=== PATIENT | female | born 1930 | race Caucasian/White ===

== ENCOUNTER 2018-12-24 19:08 | Inpatient (IN) | payer MEDICARE ==
[~2018-12-24] VITALS: Ht 144.8 cm; Wt 53.3 kg
[~2018-12-24 19:08] MED LIST: ACET325T49 PO; ACHD5005 PO; AMLO10TA7 PO; ATOR20TA66 PO; BETH10TA PO; CETI10CA PO; CETI10TA20 PO; CHOL400C9 PO; CHOL400T PO; DOCU100C37 PO; LACT10SO33 PO; LACT1CAP39 PO; LACT1CAP40 PO; METR500T PO; OMEP40CA36 PO; ONDA8TAB9 PO; PANT40TA3 PO; POTA20PA34 PO; POTA20TA8 PO; PSYL660P17 PO; PSYL684P2 PO; SENN-141 PO; SIMV40TA4 PO; SOTA80TA PO; Sotalol Hcl PO; TRAM50TA2 PO; WARF-48 PO; WARF3TAB PO; WARF3TAB56 PO
[2018-12-24] MEDS ORDERED: ACETAMINOPHEN 325 MG TABLET PO PRN (19:15)
[2018-12-24] MEDS ORDERED: ANTACID SUSP 30 ML UDC (MYLANTA) PO PRN (19:15)
[2018-12-24] MEDS ORDERED: ONDANSETRON 4 MG/2 ML (SDV) Z0FRAN IV PRN (19:15)
[2018-12-24] MEDS ORDERED: MILK OF MAGNESIA 400 MG/5 ML 30 ML UDC PO PRN (19:15)
[2018-12-24 21:30] VITALS: BP 122/69
--- NOTE | 2018-12-24 21:45 | NUR ---
2015 this rn received report from Eugene Peterson RN at [facility] 2130 pt arrived via [facility]-update from Jase from EMS [facility] admitted to room 406-1, with an admitting diagnosis of CHF new onset, on 12/24/18 from [facility] via [facility], accompanied by EMS staff & pt daughters.[facility] introduced to surroundings, call light, bed controls, phone, TV, temperature control, lights, meal times, smoking policy, visitor policy, side rail policy, bathrooms and showers. Patient Rights given to patient in the handbook. [facility] verbalizes understanding that [facility] is not responsible for the loss or damage to any personal effects or valuables that are kept in the patients possession during their hospitalization, daughter yi took home patients gold tone earrings & call button from the [facility] facility. The patient's plan of care was discussed with the patient & her daughters/dpoas, they all agree to the plan & deny any questions or concerns. [facility] verbalizes understanding of Interdisciplinary Patient Education.
--- OUTSIDE RECORDS SUMMARY | 2018-12-24 21:55 | XMS REPORT | Continuity of Care Document ---
Author Author [facility] Organization [facility] Address Unknown Phone Unavailable Allergies Active Description Code Type Severity Reaction Onset Reported/Identified Relationship to Patient Clinical Status Yes NO KNOWN DRUG ALLERGIES NO KNOWN DRUG ALLERG UNKNOWN Yes NO KNOWN DRUG ALLERGIES UNKNOWN NO KNOWN DRUG ALLERG Yes No Known Drug Allergies [id number] Drug Allergy Unknown N/A 06/09/2016 Medications Medication Packaging Start Date Stop Date Route Dosage Sig POTASSIUM CHLORIDE 10% LIQ 20 MEQ/15CC MEQ 01/08/2017 01/08/2017 ONCE&1150 POTASSIUM CL 40MEQ VIAL INJ 40 MEQ/20CC (KCL VIAL) MEQ 01/08/2017 01/08/2017 ONCE&1234 NORMAL SALINE 0.9 % (NS 100cc) (plain bag) ml 01/08/2017 01/08/2017 ONCE&1234 NORMAL SALINE 500CC IV BAG INJ 0.9 % (NS 500CC IV BAG) ml 01/08/2017 01/23/2017 CONTINUOUSEVERY 0 Hour BENZONATATE CAP 100 MG (TESSALON) MG 01/08/2017 01/15/2017 TID&0800,1400,2000 POTASSIUM CHLORIDE TAB 20 MEQ (K-DUR) Dose(s) 01/08/2017 01/15/2017 TID&0800,1400,2000 GUAIFENESIN - DM LIQ 0 (ROBITUSSIN DM) ml 01/08/2017 01/15/2017 PRN Q4H CEFTRIAXONE INJ 1 GM (ROCEPHIN) GM 01/08/2017 01/14/2017 Daily&1500 CEFTRIAXONE PREMIX IV BAG IV 1 GM/50CC (ROCEPHIN PREMIX IV BAG) GM 01/08/2017 01/14/2017 Daily&1500 ACETAMINOPHEN ORAL TABLET 325mg(Tylenol) MG 01/08/2017 01/18/2017 PRN EVERY 4 Hour WARFARIN TAB 1 MG (COUMADIN) MG 01/14/2017 QPM&1800 SOTALOL TAB 80 MG (BETAPACE) Dose(s) 01/08/2017 01/15/2017 BID&0800,2000 SIMVASTATIN TAB 10 MG (ZOCOR) Dose(s) 01/08/2017 01/14/2017 QHS&2100 POTASSIUM CL 40MEQ VIAL INJ 40 MEQ/20CC (KCL VIAL) MEQ 01/09/2017 01/09/2017 ONCE&0702 NORMAL SALINE 0.9 % (NS 100cc) (plain bag) ml 01/09/2017 01/24/2017 CONTINUOUSEVERY 0 Hour NORMAL SALINE 0.9 % (NS 100cc) (plain bag) ml 01/09/2017 01/09/2017 ONCE&0704 AMLODIPINE TAB 10 MG (NORVASC) Dose(s) 01/09/2017 01/15/2017 Daily&0900 VITAMIN D-3 TAB 1000 UNITS (VITAMIN D-3) Dose( s) 01/09/2017 01/15/2017 Daily&0900 MultiVits (Thera M Plus) (gyaavnuk-zeup-ufxpytz) oral tablet TAB 01/09/2017 02/07/2017 Daily&0900 NORMAL SALINE W/KCL 40MEQ IV 40 MEQ (SALINE IV BAG [id number]) MLS 01/09/2017 01/16/2017 CONTINUOUSEVERY 0 Hour LACTOBACILLUS BULGARIS TAB 0 (LACTINEX BULGARIS) tab 01/09/2017 01/19/2017 QID&0800,1200,1700,2200 NORMAL SALINE 250CC IV BAG INJ 0.9 % (NS 250CC IV BAG) ml 01/10/2017 01/10/2017 ONCE&0714 LOPERAMIDE CAP 2 MG (IMMODIUM) MG 01/10/2017 01/10/2017 ONCE&1200 LOPERAMIDE CAP 2 MG (IMMODIUM) MG 01/10/2017 01/17/2017 PRN QID POTASSIUM CHLORIDE TAB 20 MEQ (K-DUR) MEQ 01/11/2017 01/17/2017 TID&0800,1400,2000 SALINE NASAL MIST LIQ 0 (OCEAN SPRAY) SPRAYS 01/11/2017 01/21/2017 PRN Q2H ACETAMINOPHEN ORAL TABLET 325mg(Tylenol) MG 01/17/2017 01/17/2017 PRN ONCE D5 1/2 NS 1000CC IV BAG INJ 0 ml 01/24/2017 CONTINUOUSEVERY 0 Hour POTASSIUM CHLORIDE TAB 20 MEQ (K-DUR) MEQ 01/17/2017 01/24/2017 TID&0800,1400,2000 SOTALOL TAB 80 MG (BETAPACE) Dose(s) 01/17/2017 01/24/2017 BID&0800,2000 LOPERAMIDE CAP 2 MG (IMMODIUM) Dose(s) 01/17/2017 01/24/2017 PRN TID SIMVASTATIN TAB 10 MG (ZOCOR) Dose(s) 01/17/2017 01/23/2017 QHS&2100 CEFTRIAXONE INJ 1 GM (ROCEPHIN) GM 01/17/2017 01/23/2017 Daily&2100 ACETAMINOPHEN ORAL TABLET 325mg(Tylenol) MG 01/17/2017 01/24/2017 PRN QID AMLODIPINE TAB 10 MG (NORVASC) Dose(s) 01/18/2017 01/24/2017 Daily&0900 NORMAL SALINE 50CC IV BAG INJ 0 (NS 50CC MINI-BAG) ml 01/18/2017 01/27/2017 Daily&0900 [address]AM[address] PKT 4 GM (QUESTRAN JOAO) GM 01/19/2017 01/25/2017 BID&0800,2000 DICYCLOMINE TAB 20 MG (BENTYL) MG 01/19/2017 01/26/2017 Q6H&0600,1200,1800,2359 IPRATROPIUM/ALBUTEROL INH SOLN (DUO-NEB INH SOLN) MLS 12/24/2018 12/24/2018 ONCE&1715 FUROSEMIDE VIAL INJ 20 MG (LASIX VIAL) MG 12/24/2018 12/24/2018 ONCE&1905 Problems Date Dx Coded Attending Type Code Diagnosis Diagnosed By 05/12/2015 WALKER SMITH MD Ot 331.9 05/12/2015 WALKER SMITH MD Ot 782.0 05/18/2015 WALKER SMITH MD Ot 331.9 05/18/2015 WALKER SMITH MD Ot 782.0 06/09/2016 WALKER SMITH MD 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 06/09/2016 WALKER SMITH MD Ot 782.0 SKIN SENSATION DISTURB 06/13/2016 GIGI JARRETT MD Ot D64.9 ANEMIA, UNSPECIFIED 06/13/2016 GIGI JARRETT MD Ot E78.5 HYPERLIPIDEMIA, UNSPECIFIED 06/13/2016 GIGI JARRETT MD Ot E87.1 HYPO-OSMOLALITY AND HYPONATREMIA 06/13/2016 GIGI JARRETT MD Ot I10 ESSENTIAL (PRIMARY) HYPERTENSION 06/13/2016 GIGI JARRETT MD Ot 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 06/13/2016 GIGI JARRETT MD Ot I48.91 UNSPECIFIED ATRIAL FIBRILLATION 06/13/2016 GIGI JARRETT MD Ot K21.9 GASTRO-ESOPHAGEAL REFLUX DISEASE WITHOUT 06/13/2016 GIGI JARRETT MD Ot K59.00 CONSTIPATION, UNSPECIFIED 06/13/2016 GIGI JARRETT MD Ot M81.0 AGE-RELATED OSTEOPOROSIS W/O CURRENT PAT 06/13/2016 GIGI JARRETT MD Ot R33.9 RETENTION OF URINE, UNSPECIFIED 06/13/2016 GIGI JARRETT MD Ot S72.012A UNSP INTRACAPSULAR FRACTURE OF LEFT FEMU 06/13/2016 GIGI JARRETT MD Ot W18.09XA STRIKING AGAINST OTH OBJECT W SUBSEQUENT 06/13/2016 GIGI JARRETT MD Ot Y92.017 GARDEN OR YARD IN SINGLE-FAMILY (PRIVATE 06/13/2016 GIGI JARRETT MD Ot Y99.8 OTHER EXTERNAL CAUSE STATUS 06/13/2016 GIGI JARRETT MD Ot Z79.01 GRILL ASSOCIATE (CURRENT) USE OF ANTICOAGULANT 06/20/2016 MICHELLE LI MD Ot B96.20 UNSP ESCHERICHIA COLI THE CAUSE OF DI 06/20/2016 MICHELLE LI MD Ot B96.4 PROTEUS (MIRABILIS) (MORGANII) CAUSING D 06/20/2016 MICHELLE LI MD Ot D62 ACUTE POSTHEMORRHAGIC ANEMIA 06/20/2016 MICHELLE LI MD Ot E22.2 SYNDROME OF INAPPROPRIATE SECRETION OF A 06/20/2016 MICHELLE LI MD Ot E87.6 HYPOKALEMIA 06/20/2016 MICHELLE LI MD Ot I10 ESSENTIAL (PRIMARY) HYPERTENSION 06/20/2016 MICHELLE LI MD Ot 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 06/20/2016 MICHELLE LI MD Ot I48.0 PAROXYSMAL ATRIAL FIBRILLATION 06/20/2016 MICHELLE LI MD Ot K59.09 OTHER CONSTIPATION 06/20/2016 MICHELLE LI MD Ot M81.0 AGE-RELATED OSTEOPOROSIS W/O CURRENT PAT 06/20/2016 MICHELLE LI MD Ot N31.9 NEUROMUSCULAR DYSFUNCTION OF BLADDER, UN 06/20/2016 MICHELLE LI MD Ot N39.0 URINARY TRACT INFECTION, SITE NOT SPECIF 06/20/2016 MICHELLE LI MD Ot R06.89 OTHER ABNORMALITIES OF BREATHING 06/20/2016 MICHELLE LI MD Ot R33.9 RETENTION OF URINE, UNSPECIFIED 06/20/2016 MICHELLE LI MD Ot S72.012D UNSP INTRACAP FX LEFT FEMUR, SUBS FOR CL 06/20/2016 MICHELLE LI MD Ot W18.09XD STRIKING AGAINST OTH OBJECT W SUBSEQUENT 06/20/2016 MICHELLE LI MD Ot Y92.017 GARDEN OR YARD IN SINGLE-FAMILY (PRIVATE 06/20/2016 MICHELLE LI MD Ot Y99.8 OTHER EXTERNAL CAUSE STATUS 06/20/2016 MICHELLE LI MD Ot Z79.01 GRILL ASSOCIATE (CURRENT) USE OF ANTICOAGULANT 06/20/2016 MICHELLE LI MD Ot Z99.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 OXYGEN 06/20/2016 MICHELLE LI MD Ot B96.20 UNSP ESCHERICHIA COLI THE CAUSE OF DI 06/20/2016 MICHELLE LI MD Ot B96.4 PROTEUS (MIRABILIS) (MORGANII) CAUSING D 06/20/2016 MICHELLE LI MD Ot D62 ACUTE POSTHEMORRHAGIC ANEMIA 06/20/2016 MICHELLE LI MD Ot E22.2 SYNDROME OF INAPPROPRIATE SECRETION OF A 06/20/2016 MICHELLE LI MD Ot E87.6 HYPOKALEMIA 06/20/2016 MICHELLE LI MD Ot I10 ESSENTIAL (PRIMARY) HYPERTENSION 06/20/2016 MICHELLE LI MD Ot 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 06/20/2016 MICHELLE LI MD Ot I48.0 PAROXYSMAL ATRIAL FIBRILLATION 06/20/2016 MICHELLE LI MD Ot K59.09 OTHER CONSTIPATION 06/20/2016 MICHELLE LI MD Ot M81.0 AGE-RELATED OSTEOPOROSIS W/O CURRENT PAT 06/20/2016 MICHELLE LI MD, Ot N31.9 NEUROMUSCULAR DYSFUNCTION OF BLADDER, UN 06/20/2016 MICHELLE LI MD, Ot N39.0 URINARY TRACT INFECTION, SITE NOT SPECIF 06/20/2016 MICHELLE LI MD Ot R06.89 OTHER ABNORMALITIES OF BREATHING 06/20/2016 MICHELLE LI MD Ot R33.9 RETENTION OF URINE, UNSPECIFIED 06/20/2016 MICHELLE LI MD Ot S72.012D UNSP INTRACAP FX LEFT FEMUR, SUBS FOR CL 06/20/2016 MICHELLE LI MD, Ot W18.09XD STRIKING AGAINST OTH OBJECT W SUBSEQUENT 06/20/2016 MICHELLE LI MD, Ot Y92.017 GARDEN OR YARD IN SINGLE-FAMILY (PRIVATE 06/20/2016 MICHELLE LI MD, Ot Y99.8 OTHER EXTERNAL CAUSE STATUS 06/20/2016 MICHELLE LI MD, Ot Z79.01 SENIOR CARE (CURRENT) USE OF ANTICOAGULANT 06/20/2016 MICHELLE LI MD, Ot Z99.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 OXYGEN 06/20/2016 MICHELLE LI MD Ot B96.20 UNSP ESCHERICHIA COLI THE CAUSE OF DI 06/20/2016 MICHELLE LI MD Ot B96.4 PROTEUS (MIRABILIS) (MORGANII) CAUSING D 06/20/2016 MICHELLE LI MD Ot D62 ACUTE POSTHEMORRHAGIC ANEMIA 06/20/2016 MICHELLE LI MD Ot E22.2 SYNDROME OF INAPPROPRIATE SECRETION OF A 06/20/2016 MICHELLE LI MD Ot E87.6 HYPOKALEMIA 06/20/2016 MICHELLE LI MD Ot I10 ESSENTIAL (PRIMARY) HYPERTENSION 06/20/2016 MICHELLE LI MD Ot 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 06/20/2016 MICHELLE LI MD Ot I48.0 PAROXYSMAL ATRIAL FIBRILLATION 06/20/2016 MICHELLE LI MD Ot K59.09 OTHER CONSTIPATION 06/20/2016 MICHELLE LI MD Ot M81.0 AGE-RELATED OSTEOPOROSIS W/O CURRENT PAT 06/20/2016 MICHELLE LI MD Ot N31.9 NEUROMUSCULAR DYSFUNCTION OF BLADDER, UN 06/20/2016 MICHELLE LI MD Ot N39.0 URINARY TRACT INFECTION, SITE NOT SPECIF 06/20/2016 LI MD, MICHELLE E Ot R06.89 OTHER ABNORMALITIES OF BREATHING 06/20/2016 MICHELLE LI MD Ot R33.9 RETENTION OF URINE, UNSPECIFIED 06/20/2016 MICHELLE LI MD Ot S72.012D UNSP INTRACAP FX LEFT FEMUR, SUBS FOR CL 06/20/2016 MICHELLE LI MD, Ot W18.09XD STRIKING AGAINST OTH OBJECT W SUBSEQUENT 06/20/2016 MICHELLE LI MD Ot Y92.017 GARDEN OR YARD IN SINGLE-FAMILY (PRIVATE 06/20/2016 MICHELLE LI MD Ot Y99.8 OTHER EXTERNAL CAUSE STATUS 06/20/2016 MICHELLE LI MD Ot Z79.01 GRILL ASSOCIATE (CURRENT) USE OF ANTICOAGULANT 06/20/2016 MICHELLE LI MD, Ot Z99.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 OXYGEN 06/20/2016 MICHELLE LI MD Ot B96.20 UNSP ESCHERICHIA COLI THE CAUSE OF DI 06/20/2016 MICHELLE LI MD Ot B96.4 PROTEUS (MIRABILIS) (MORGANII) CAUSING D 06/20/2016 MICHELLE LI MD Ot D62 ACUTE POSTHEMORRHAGIC ANEMIA 06/20/2016 MICHELLE LI MD Ot E22.2 SYNDROME OF INAPPROPRIATE SECRETION OF A 06/20/2016 MICHELLE LI MD Ot E87.6 HYPOKALEMIA 06/20/2016 MICHELLE LI MD Ot I10 ESSENTIAL (PRIMARY) HYPERTENSION 06/20/2016 MICHELLE LI MD Ot 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 06/20/2016 MICHELLE LI MD Ot I48.0 PAROXYSMAL ATRIAL FIBRILLATION 06/20/2016 MICHELLE LI MD Ot K59.09 OTHER CONSTIPATION 06/20/2016 MICHELLE LI MD Ot M81.0 AGE-RELATED OSTEOPOROSIS W/O CURRENT PAT 06/20/2016 MICHELLE LI MD Ot N31.9 NEUROMUSCULAR DYSFUNCTION OF BLADDER, UN 06/20/2016 MICHELLE LI MD Ot N39.0 URINARY TRACT INFECTION, SITE NOT SPECIF 06/20/2016 MICHELLE LI MD Ot R06.89 OTHER ABNORMALITIES OF BREATHING 06/20/2016 MICHELLE LI MD Ot R33.9 RETENTION OF URINE, UNSPECIFIED 06/20/2016 MICHELLE LI MD Ot S72.012D UNSP INTRACAP FX LEFT FEMUR, SUBS FOR CL 06/20/2016 MICHELLE LI MD, Ot W18.09XD STRIKING AGAINST OTH OBJECT W SUBSEQUENT 06/20/2016 MICHELLE LI MD Ot Y92.017 GARDEN OR YARD IN SINGLE-FAMILY (PRIVATE 06/20/2016 MICHELLE LI MD, Ot Y99.8 OTHER EXTERNAL CAUSE STATUS 06/20/2016 MICHELLE LI MD, Ot Z79.01 GRILL ASSOCIATE (CURRENT) USE OF ANTICOAGULANT 06/20/2016 MICHELLE LI MD Ot Z99.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 OXYGEN 06/20/2016 MICHELLE LI MD, Ot B96.20 UNSP ESCHERICHIA COLI THE CAUSE OF DI 06/20/2016 MICHELLE LI MD, Ot B96.4 PROTEUS (MIRABILIS) (MORGANII) CAUSING D 06/20/2016 MICHELLE LI MD Ot D62 ACUTE POSTHEMORRHAGIC ANEMIA 06/20/2016 MICHELLE LI MD Ot E22.2 SYNDROME OF INAPPROPRIATE SECRETION OF A 06/20/2016 MICHELLE LI MD Ot E87.6 HYPOKALEMIA 06/20/2016 MICHELLE LI MD Ot I10 ESSENTIAL (PRIMARY) HYPERTENSION 06/20/2016 MICHELLE LI MD Ot 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 06/20/2016 MICHELLE LI MD, Ot I48.0 PAROXYSMAL ATRIAL FIBRILLATION 06/20/2016 MICHELLE LI MD Ot K59.09 OTHER CONSTIPATION 06/20/2016 MICHELLE LI MD Ot M81.0 AGE-RELATED OSTEOPOROSIS W/O CURRENT PAT 06/20/2016 MICHELLE LI MD Ot N31.9 NEUROMUSCULAR DYSFUNCTION OF BLADDER, UN 06/20/2016 MICHELLE LI MD, Ot N39.0 URINARY TRACT INFECTION, SITE NOT SPECIF 06/20/2016 MICHELLE LI MD Ot R06.89 OTHER ABNORMALITIES OF BREATHING 06/20/2016 MICHELLE LI MD Ot R33.9 RETENTION OF URINE, UNSPECIFIED 06/20/2016 MICHELLE LI MD, Ot S72.012D UNSP INTRACAP FX LEFT FEMUR, SUBS FOR CL 06/20/2016 MICHELLE LI MD Ot W18.09XD STRIKING AGAINST OTH OBJECT W SUBSEQUENT 06/20/2016 MICHELLE LI MD, Ot Y92.017 GARDEN OR YARD IN SINGLE-FAMILY (PRIVATE 06/20/2016 MICHELLE LI MD, Ot Y99.8 OTHER EXTERNAL CAUSE STATUS 06/20/2016 MICHELLE LI MD, Ot Z79.01 GRILL ASSOCIATE (CURRENT) USE OF ANTICOAGULANT 06/20/2016 MICHELLE LI MD, Ot Z99.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 OXYGEN 06/26/2016 W 253.6 OTHER DISORDERS OF NEUROHYPOPHYSIS 06/26/2016 W 401.9 UNSPECIFIED ESSENTIAL HYPERTENSION 06/26/2016 W 564.1 IRRITABLE BOWEL SYNDROME 06/26/2016 W E22.2 SYNDROME OF INAPPROPRIATE SECRETION OF ANTIDIURETIC HORMONE 06/26/2016 W I10 ESSENTIAL ( PRIMARY) HYPERTENSION 06/26/2016 W K58.0 IRRITABLE BOWEL SYNDROME WITH DIARRHEA 06/27/2016 A 276.1 HYPOSMOLALITY AND/OR HYPONATREMIA 06/27/2016 A E87.1 HYPO- OSMOLALITY AND HYPONATREMIA 11/13/2016 Haroldo Benton 728.87 MUSCLE WEAKNESS (GENERALIZED) 11/13/2016 Haroldo Benton M62.81 MUSCLE WEAKNESS (GENERALIZED) 11/13/2016 Haroldo Benton V43.64 HIP JOINT REPLACED BY OTHER MEANS 11/13/2016 Haroldo Benton V54.89 OTHER ORTHOPEDIC AFTERCARE 11/13/2016 Haroldo Benton Z47.89 ENCOUNTER FOR OTHER ORTHOPEDIC AFTERCARE 11/13/2016 Haroldo Benton Z96.641 PRESENCE OF RIGHT ARTIFICIAL HIP JOINT 01/08/2017 Haroldo Benton 276.8 HYPOPOTASSEMIA 01/08/2017 Haroldo Benton 401.9 UNSPECIFIED ESSENTIAL HYPERTENSION 01/08/2017 Haroldo Benton 427.31 ATRIAL FIBRILLATION 01/08/2017 Haroldo Benton 564.1 IRRITABLE BOWEL SYNDROME 01/08/2017 Haroldo Benton 780.79 01/08/2017 Haroldo Benton E87.6 HYPOKALEMIA 01/08/2017 Haroldo Benton I10 ESSENTIAL (PRIMARY) HYPERTENSION 01/08/2017 Haroldo Benton I48.0 PAROXYSMAL ATRIAL FIBRILLATION 01/08/2017 Haroldo Benton K58.0 IRRITABLE BOWEL SYNDROME WITH DIARRHEA 01/08/2017 Haroldo Benton R53.1 WEAKNESS 01/12/2017 Haroldo Benton W 272.4 01/12/2017 Paoni, Haroldo W 427.31 01/12/2017 Pabrenda, Haroldo A 558.9 01/12/2017 Paoni, Haroldo W 564.1 01/12/2017 Pabrenda, Haroldo W 780.60 01/12/2017 Pabrenda, Haroldo W 787.91 01/12/2017 Pabrenda, Haroldo W E78.5 HYPERLIPIDEMIA, UNSPECIFIED 01/12/2017 Pabrenda Haroldo W I48.91 UNSPECIFIED ATRIAL FIBRILLATION 01/12/2017 Pabrenda, Haroldo A K52.9 01/12/2017 Pabrenda, Haroldo W K58.0 IRRITABLE BOWEL SYNDROME WITH DIARRHEA 01/12/2017 Chetan Haroldo W R19.7 01/12/2017 Chetan Haroldo W R50.9 FEVER, UNSPECIFIED 01/17/2017 BURGOS OSIRIS W 427.31 ATRIAL FIBRILLATION 01/17/2017 BURGOS OSIRIS W 461.9 01/17/2017 OSIRIS BURGOS A 466.0 01/17/2017 BURGOS OSIRIS W 564.1 01/17/2017 BURGOS OSIRIS W 780.60 FEVER, UNSPECIFIED 01/17/2017 BURGOS OSIRIS W I48.91 UNSPECIFIED ATRIAL FIBRILLATION 01/17/2017 BURGOS, OSIRIS W J01.90 ACUTE SINUSITIS, UNSPECIFIED 01/17/2017 BURGOS OSIRIS A J20.9 ACUTE BRONCHITIS, UNSPECIFIED 01/17/2017 BURGOS OSIRIS W K58.0 IRRITABLE BOWEL SYNDROME WITH DIARRHEA 01/17/2017 BURGOS, OSIRIS W R50.9 FEVER, UNSPECIFIED 01/17/2017 BURGOS, OSIRIS W V58.61 LONG-TERM (CURRENT) USE OF ANTICOAGULANTS 01/17/2017 OSIRIS BURGOS W Z79.01 GRILL ASSOCIATE (CURRENT) USE OF ANTICOAGULANTS 01/17/2017 OSIRIS BURGOS W 288.60 LEUKOCYTOSIS, UNSPECIFIED 01/17/2017 OSIRIS BURGOS D72.829 ELEVATED WHITE BLOOD CELL COUNT, UNSPECIFIED 07/04/2017 Haroldo Benton 401.9 UNSPECIFIED ESSENTIAL HYPERTENSION 07/04/2017 Haroldo Benton I10 ESSENTIAL (PRIMARY) HYPERTENSION 07/04/2017 Haroldo Benton 401.9 UNSPECIFIED ESSENTIAL HYPERTENSION 07/04/2017 Haroldo Benton I10 ESSENTIAL (PRIMARY) HYPERTENSION 10/02/2017 Haroldo Benton V72.31 ROUTINE GYNECOLOGICAL EXAMINATION 10/02/2017 Haroldo Benton Z01.411 ENCOUNTER FOR GYNECOLOGICAL EXAMINATION (GENERAL) (ROUTINE) WITH ABNORMAL FINDINGS 10/02/2017 Haroldo Benton V72.31 ROUTINE GYNECOLOGICAL EXAMINATION 10/02/2017 Haroldo Benton Z01.411 ENCOUNTER FOR GYNECOLOGICAL EXAMINATION (GENERAL) (ROUTINE) WITH ABNORMAL FINDINGS 01/02/2018 Haroldo Benton 272.4 OTHER AND UNSPECIFIED HYPERLIPIDEMIA 01/02/2018 Haroldo Benton 401.9 UNSPECIFIED ESSENTIAL HYPERTENSION 01/02/2018 Haroldo Benton E78.5 HYPERLIPIDEMIA, UNSPECIFIED 01/02/2018 Haroldo Benton I10 ESSENTIAL (PRIMARY) HYPERTENSION 01/02/2018 Haroldo Benton 272.4 OTHER AND UNSPECIFIED HYPERLIPIDEMIA 01/02/2018 Haroldo Benton 401.9 UNSPECIFIED ESSENTIAL HYPERTENSION 01/02/2018 Haroldo Benton E78.5 HYPERLIPIDEMIA, UNSPECIFIED 01/02/2018 Haroldo Benton I10 ESSENTIAL (PRIMARY) HYPERTENSION Procedures Code Description Performed By Performed On [id number] 06/11/2016 Results Test Result Range Complete blood count (CBC) with automated white blood cell (WBC) differential - 06/09/16 16:56 Blood leukocytes automated count (number/volume) 9.5 10*3/uL 4.3-11.0 Blood erythrocytes automated count (number/volume) 3.31 10*6/uL 4.35-5.85 Venous blood hemoglobin measurement (mass/volume) 10.4 g/dL 11.5-16.0 Blood hematocrit (volume fraction) 29 % 35-52 Automated erythrocyte mean corpuscular volume 89 [foz_us] 80-99 Automated erythrocyte mean corpuscular hemoglobin (mass per erythrocyte) 31 pg 25-34 Automated erythrocyte mean corpuscular hemoglobin concentration measurement ( mass/volume) 36 g/dL 32-36 Automated erythrocyte distribution width ratio 13.3 % 10.0-14.5 Automated blood platelet count (count/volume) 357 10*3/uL 130-400 Automated blood platelet mean volume measurement 10.1 [foz_us] 7.4-10.4 Automated blood neutrophils/100 leukocytes 44 % 42-75 Automated blood lymphocytes/100 leukocytes 40 % 12-44 Blood monocytes/100 leukocytes 13 % 0-12 Automated blood eosinophils/100 leukocytes 3 % 0-10 Automated blood basophils/100 leukocytes 0 % 0-10 Blood neutrophils automated count (number/volume) 4.2 10*3 1.8-7.8 Blood lymphocytes automated count (number/volume) 3.8 10*3 1.0-4.0 Blood monocytes automated count (number/volume) 1.2 10*3 0.0-1.0 Automated eosinophil count 0.3 10*3/uL 0.0-0.3 Automated blood basophil count (count/volume) 0.0 10*3/uL 0.0-0.1 PT panel in platelet poor plasma by coagulation assay - 06/09/16 16:56 Prothrombin time (PT) in platelet poor plasma by coagulation assay 25.8 s 12.2-14.7 INR in platelet poor plasma or blood by coagulation assay 2.4 0.8-1.4 Comprehensive metabolic panel - 06/09/16 16:56 Serum or plasma sodium measurement (moles/volume) 124 mmol/L 135-145 Serum or plasma potassium measurement (moles/volume) 4.3 mmol/L 3.6-5.0 Serum or plasma chloride measurement (moles/volume) 96 mmol/L 98-107 Carbon dioxide 17 mmol/L 21-32 Serum or plasma anion gap determination (moles/volume) 11 mmol/L 5-14 Serum or plasma urea nitrogen measurement (mass/volume) 11 mg/dL 7-18 Serum or plasma creatinine measurement (mass/volume) 0.65 mg/dL 0.60-1.30 Serum or plasma urea nitrogen/creatinine mass ratio 17 NRG Serum or plasma creatinine measurement with calculation of estimated glomerular filtration rate > NRG Serum or plasma glucose measurement (mass/volume) 91 mg/dL 70-105 Serum or plasma calcium measurement (mass/volume) 9.0 mg/dL 8.5-10.1 Serum or plasma total bilirubin measurement (mass/volume) 0.3 mg/dL 0.1-1.0 Serum or plasma alkaline phosphatase measurement (enzymatic activity/volume) 40 U/L 40-136 Serum or plasma aspartate aminotransferase measurement (enzymatic activity/ volume) 26 U/L 5-34 Serum or plasma alanine aminotransferase measurement (enzymatic activity/volume ) 18 U/L 0-55 Serum or plasma protein measurement (mass/volume) 6.9 g/dL 6.4-8.2 Serum or plasma albumin measurement (mass/volume) 4.0 g/dL 3.2-4.5 Complete urinalysis with reflex to culture - 06/09/16 17:55 Urine color determination YELLOW NRG Urine clarity determination CLEAR NRG Urine pH measurement by test strip 5 5-9 Specific gravity of urine by test strip 1.015 1.016- 1.022 Urine protein assay by test strip, semi-quantitative 1+ NEGATIVE Urine glucose detection by automated test strip NEGATIVE NEGATIVE Erythrocytes detection in urine sediment by light microscopy 2+ NEGATIVE Urine ketones detection by automated test strip NEGATIVE NEGATIVE Urine nitrite detection by test strip NEGATIVE NEGATIVE Urine total bilirubin detection by test strip NEGATIVE NEGATIVE Urine urobilinogen measurement by automated test strip (mass/volume) NORMAL NORMAL Urine leukocyte esterase detection by dipstick NEGATIVE NEGATIVE Automated urine sediment erythrocyte count by microscopy (number/high power field) [HPF] NRG Automated urine sediment leukocyte count by microscopy (number/high power field ) NONE NRG Bacteria detection in urine sediment by light microscopy NONE NRG Crystals detection in urine sediment by light microscopy NONE NRG Casts detection in urine sediment by light microscopy NONE NRG Mucus detection in urine sediment by light microscopy NEGATIVE NRG Complete urinalysis with reflex to culture NO NRG Complete blood count (CBC) with automated white blood cell (WBC) differential - 06/10/16 05:35 Blood leukocytes automated count (number/volume) 9.9 10*3/uL 4.3-11.0 Blood erythrocytes automated count (number/volume) 3.20 10*6/uL 4.35-5.85 Venous blood hemoglobin measurement (mass/volume) 9.9 g/dL 11.5-16.0 Blood hematocrit (volume fraction) 29 % 35-52 Automated erythrocyte mean corpuscular volume 89 [foz_us] 80-99 Automated erythrocyte mean corpuscular hemoglobin (mass per erythrocyte) 31 pg 25-34 Automated erythrocyte mean corpuscular hemoglobin concentration measurement ( mass/volume) 35 g/dL 32-36 Automated erythrocyte distribution width ratio 13.0 % 10.0-14.5 Automated blood platelet count (count/volume) 294 10*3/uL 130-400 Automated blood platelet mean volume measurement 9.9 [foz_us] 7.4-10.4 Automated blood neutrophils/100 leukocytes 78 % 42-75 Automated blood lymphocytes/100 leukocytes 16 % 12-44 Blood monocytes/100 leukocytes 6 % 0-12 Automated blood eosinophils/100 leukocytes 0 % 0-10 Automated blood basophils/100 leukocytes 0 % 0-10 Blood neutrophils automated count (number/volume) 7.7 10*3 1.8-7.8 Blood lymphocytes automated count (number/volume) 1.6 10*3 1.0-4.0 Blood monocytes automated count (number/volume) 0.6 10*3 0.0-1.0 Automated eosinophil count 0.0 10*3/uL 0.0-0.3 Automated blood basophil count (count/volume) 0.0 10*3/uL 0.0-0.1 PT panel in platelet poor plasma by coagulation assay - 06/10/16 05:35 Prothrombin time (PT) in platelet poor plasma by coagulation assay 25.1 s 12.2-14.7 INR in platelet poor plasma or blood by coagulation assay 2.3 0.8-1.4 Whole blood basic metabolic panel - 06/10/16 05:35 Serum or plasma sodium measurement (moles/volume) 127 mmol/L 135-145 Serum or plasma potassium measurement (moles/volume) 4.1 mmol/L 3.6-5.0 Serum or plasma chloride measurement (moles/volume) 97 mmol/L 98-107 Carbon dioxide 19 mmol/L 21-32 Serum or plasma anion gap determination (moles/volume) 11 mmol/L 5-14 Serum or plasma urea nitrogen measurement (mass/volume) 7 mg/dL 7-18 Serum or plasma creatinine measurement (mass/volume) 0.59 mg/dL 0.60-1.30 Serum or plasma urea nitrogen/creatinine mass ratio 12 NRG Serum or plasma creatinine measurement with calculation of estimated glomerular filtration rate > NRG Serum or plasma glucose measurement (mass/volume) 118 mg/dL 70-105 Serum or plasma calcium measurement (mass/volume) 8.3 mg/dL 8.5-10.1 RED CELLS LEUKO REDUCED AS1 - 06/10/16 05:35 RED CELLS LEUKO REDUCED AS1 NOT AVAILABLE NRG Blood type T Indirect antibody screen panel - 06/10/16 05:35 ABO+Rh group AP NRG Transfusion band number [id number] NRG Blood group antibody screen NEGATIVE NRG Serum or plasma lithium measurement (moles/volume) - 06/10/16 05:35 BNP level 374.1 pg/mL <100.0 Methicillin resistant Staphylococcus aureus (MRSA) screening culture - 11:00 Methicillin resistant Staphylococcus aureus (MRSA) screening culture NEG [facility] Complete blood count (CBC) with automated white blood cell (WBC) differential - 06/11/16 05:37 Blood leukocytes automated count (number/volume) 8.7 10*3/uL 4.3-11.0 Blood erythrocytes automated count (number/volume) 3.38 10*6/uL 4.35-5.85 Venous blood hemoglobin measurement (mass/volume) 10.6 g/dL 11.5-16.0 Blood hematocrit (volume fraction) 31 % 35-52 Automated erythrocyte mean corpuscular volume 93 [foz_us] 80-99 Automated erythrocyte mean corpuscular hemoglobin (mass per erythrocyte) 31 pg 25-34 Automated erythrocyte mean corpuscular hemoglobin concentration measurement ( mass/volume) 34 g/dL 32-36 Automated erythrocyte distribution width ratio 14.1 % 10.0-14.5 Automated blood platelet count (count/volume) 298 10*3/uL 130-400 Automated blood platelet mean volume measurement 10.4 [foz_us] 7.4-10.4 Automated blood neutrophils/100 leukocytes 65 % 42-75 Automated blood lymphocytes/100 leukocytes 21 % 12-44 Blood monocytes/100 leukocytes 11 % 0-12 Automated blood eosinophils/100 leukocytes 4 % 0-10 Automated blood basophils/100 leukocytes 1 % 0-10 Blood neutrophils automated count (number/volume) 5.6 10*3 1.8-7.8 Blood lymphocytes automated count (number/volume) 1.8 10*3 1.0-4.0 Blood monocytes automated count (number/volume) 0.9 10*3 0.0-1.0 Automated eosinophil count 0.3 10*3/uL 0.0-0.3 Automated blood basophil count (count/volume) 0.0 10*3/uL 0.0-0.1 PT panel in platelet poor plasma by coagulation assay - 06/11/16 05:37 Prothrombin time (PT) in platelet poor plasma by coagulation assay 16.5 s 12.2-14.7 INR in platelet poor plasma or blood by coagulation assay 1.4 0.8-1.4 Comprehensive metabolic panel - 06/11/16 05:37 Serum or plasma sodium measurement (moles/volume) 136 mmol/L 135-145 Serum or plasma potassium measurement (moles/volume) 3.8 mmol/L 3.6-5.0 Serum or plasma chloride measurement (moles/volume) 101 mmol/L 98-107 Carbon dioxide 24 mmol/L 21-32 Serum or plasma anion gap determination (moles/volume) 11 mmol/L 5-14 Serum or plasma urea nitrogen measurement (mass/volume) 6 mg/dL 7-18 Serum or plasma creatinine measurement (mass/volume) 0.65 mg/dL 0.60-1.30 Serum or plasma urea nitrogen/creatinine mass ratio 9 NRG Serum or plasma creatinine measurement with calculation of estimated glomerular filtration rate > NRG Serum or plasma glucose measurement (mass/volume) 95 mg/dL 70-105 Serum or plasma calcium measurement (mass/volume) 8.6 mg/dL 8.5-10.1 Serum or plasma total bilirubin measurement (mass/volume) 0.6 mg/dL 0.1-1.0 Serum or plasma alkaline phosphatase measurement (enzymatic activity/volume) 43 U/L 40-136 Serum or plasma aspartate aminotransferase measurement (enzymatic activity/ volume) 21 U/L 5-34 Serum or plasma alanine aminotransferase measurement (enzymatic activity/volume ) 18 U/L 0-55 Serum or plasma protein measurement (mass/volume) 6.5 g/dL 6.4-8.2 Serum or plasma albumin measurement (mass/volume) 3.6 g/dL 3.2-4.5 Whole blood hemoglobin and hematocrit panel - 06/12/16 06:52 Venous blood hemoglobin measurement (mass/volume) 10.4 g/dL 11.5-16.0 Blood hematocrit (volume fraction) 31 % 35-52 PT panel in platelet poor plasma by coagulation assay - 06/12/16 16:10 Prothrombin time (PT) in platelet poor plasma by coagulation assay 15.2 s 12.2-14.7 INR in platelet poor plasma or blood by coagulation assay 1.2 0.8-1.4 Whole blood hemoglobin and hematocrit panel - 06/13/16 05:50 Venous blood hemoglobin measurement (mass/volume) 9.0 g/dL 11.5-16.0 Blood hematocrit (volume fraction) 26 % 35-52 PT panel in platelet poor plasma by coagulation assay - 06/13/16 05:50 Prothrombin time (PT) in platelet poor plasma by coagulation assay 15.2 s 12.2-14.7 INR in platelet poor plasma or blood by coagulation assay 1.2 0.8-1.4 Comprehensive metabolic panel - 06/13/16 05:50 Serum or plasma sodium measurement (moles/volume) 127 mmol/L 135-145 Serum or plasma potassium measurement (moles/volume) 3.4 mmol/L 3.6-5.0 Serum or plasma chloride measurement (moles/volume) 89 mmol/L 98-107 Carbon dioxide 28 mmol/L 21-32 Serum or plasma anion gap determination (moles/volume) 10 mmol/L 5-14 Serum or plasma urea nitrogen measurement (mass/volume) 9 mg/dL 7-18 Serum or plasma creatinine measurement (mass/volume) 0.59 mg/dL 0.60-1.30 Serum or plasma urea nitrogen/creatinine mass ratio 15 NRG Serum or plasma creatinine measurement with calculation of estimated glomerular filtration rate > NRG Serum or plasma glucose measurement (mass/volume) 120 mg/dL 70-105 Serum or plasma calcium measurement (mass/volume) 8.7 mg/dL 8.5-10.1 Serum or plasma total bilirubin measurement (mass/volume) 0.6 mg/dL 0.1-1.0 Serum or plasma alkaline phosphatase measurement (enzymatic activity/volume) 52 U/L 40-136 Serum or plasma aspartate aminotransferase measurement (enzymatic activity/ volume) 22 U/L 5-34 Serum or plasma alanine aminotransferase measurement (enzymatic activity/volume ) 15 U/L 0-55 Serum or plasma protein measurement (mass/volume) 5.6 g/dL 6.4-8.2 Serum or plasma albumin measurement (mass/volume) 3.0 g/dL 3.2-4.5 Serum or plasma iron measurement (mass/volume) - 06/13/16 05:50 Serum or plasma iron measurement (mass/volume) 14 ug/dL 50-175 Complete blood count (CBC) with automated white blood cell (WBC) differential - 06/13/16 05:50 Blood leukocytes automated count (number/volume) 13.7 10*3/uL 4.3-11.0 Blood erythrocytes automated count (number/volume) 2.86 10*6/uL 4.35-5.85 Venous blood hemoglobin measurement (mass/volume) 9.0 g/dL 11.5-16.0 Blood hematocrit (volume fraction) 26 % 35-52 Automated erythrocyte mean corpuscular volume 93 [foz_us] 80-99 Automated erythrocyte mean corpuscular hemoglobin (mass per erythrocyte) 32 pg 25-34 Automated erythrocyte mean corpuscular hemoglobin concentration measurement ( mass/volume) 34 g/dL 32-36 Automated erythrocyte distribution width ratio 13.5 % 10.0-14.5 Automated blood platelet count (count/volume) 294 10*3/uL 130-400 Automated blood platelet mean volume measurement 10.6 [foz_us] 7.4-10.4 Automated blood neutrophils/100 leukocytes 70 % 42-75 Automated blood lymphocytes/100 leukocytes 18 % 12-44 Blood monocytes/100 leukocytes 11 % 0-12 Automated blood eosinophils/100 leukocytes 1 % 0-10 Automated blood basophils/100 leukocytes 0 % 0-10 Blood neutrophils automated count (number/volume) 9.5 10*3 1.8-7.8 Blood lymphocytes automated count (number/volume) 2.5 10*3 1.0-4.0 Blood monocytes automated count (number/volume) 1.6 10*3 0.0-1.0 Automated eosinophil count 0.1 10*3/uL 0.0-0.3 Automated blood basophil count (count/volume) 0.0 10*3/uL 0.0-0.1 Complete blood count (CBC) with automated white blood cell (WBC) differential - 06/14/16 09:19 Blood leukocytes automated count (number/volume) 11.4 10*3/uL 4.3-11.0 Blood erythrocytes automated count (number/volume) 2.98 10*6/uL 4.35-5.85 Venous blood hemoglobin measurement (mass/volume) 9.3 g/dL 11.5-16.0 Blood hematocrit (volume fraction) 27 % 35-52 Automated erythrocyte mean corpuscular volume 92 [foz_us] 80-99 Automated erythrocyte mean corpuscular hemoglobin (mass per erythrocyte) 31 pg 25-34 Automated erythrocyte mean corpuscular hemoglobin concentration measurement ( mass/volume) 34 g/dL 32-36 Automated erythrocyte distribution width ratio 13.3 % 10.0-14.5 Automated blood platelet count (count/volume) 327 10*3/uL 130-400 Automated blood platelet mean volume measurement 9.8 [foz_us] 7.4-10.4 Automated blood neutrophils/100 leukocytes 70 % 42-75 Automated blood lymphocytes/100 leukocytes 15 % 12-44 Blood monocytes/100 leukocytes 13 % 0-12 Automated blood eosinophils/100 leukocytes 2 % 0-10 Automated blood basophils/100 leukocytes 0 % 0-10 Blood neutrophils automated count (number/volume) 8.0 10*3 1.8-7.8 Blood lymphocytes automated count (number/volume) 1.7 10*3 1.0-4.0 Blood monocytes automated count (number/volume) 1.5 10*3 0.0-1.0 Automated eosinophil count 0.2 10*3/uL 0.0-0.3 Automated blood basophil count (count/volume) 0.0 10*3/uL 0.0-0.1 Comprehensive metabolic panel - 06/14/16 09:19 Serum or plasma sodium measurement (moles/volume) 128 mmol/L 135-145 Serum or plasma potassium measurement (moles/volume) 3.1 mmol/L 3.6-5.0 Serum or plasma chloride measurement (moles/volume) 87 mmol/L 98-107 Carbon dioxide 31 mmol/L 21-32 Serum or plasma anion gap determination (moles/volume) 10 mmol/L 5-14 Serum or plasma urea nitrogen measurement (mass/volume) 9 mg/dL 7-18 Serum or plasma creatinine measurement (mass/volume) 0.63 mg/dL 0.60-1.30 Serum or plasma urea nitrogen/creatinine mass ratio 14 NRG Serum or plasma creatinine measurement with calculation of estimated glomerular filtration rate > NRG Serum or plasma glucose measurement (mass/volume) 122 mg/dL 70-105 Serum or plasma calcium measurement (mass/volume) 8.7 mg/dL 8.5-10.1 Serum or plasma total bilirubin measurement (mass/volume) 0.7 mg/dL 0.1-1.0 Serum or plasma alkaline phosphatase measurement (enzymatic activity/volume) 58 U/L 40-136 Serum or plasma aspartate aminotransferase measurement (enzymatic activity/ volume) 22 U/L 5-34 Serum or plasma alanine aminotransferase measurement (enzymatic activity/volume ) 16 U/L 0-55 Serum or plasma protein measurement (mass/volume) 6.3 g/dL 6.4-8.2 Serum or plasma albumin measurement (mass/volume) 3.2 g/dL 3.2-4.5 Complete blood count (CBC) with automated white blood cell (WBC) differential - 06/15/16 06:04 Blood leukocytes automated count (number/volume) 8.4 10*3/uL 4.3-11.0 Blood erythrocytes automated count (number/volume) 2.80 10*6/uL 4.35-5.85 Venous blood hemoglobin measurement (mass/volume) 8.8 g/dL 11.5-16.0 Blood hematocrit (volume fraction) 26 % 35-52 Automated erythrocyte mean corpuscular volume 91 [foz_us] 80-99 Automated erythrocyte mean corpuscular hemoglobin (mass per erythrocyte) 31 pg 25-34 Automated erythrocyte mean corpuscular hemoglobin concentration measurement ( mass/volume) 34 g/dL 32-36 Automated erythrocyte distribution width ratio 13.0 % 10.0-14.5 Automated blood platelet count (count/volume) 314 10*3/uL 130-400 Automated blood platelet mean volume measurement 9.6 [foz_us] 7.4-10.4 Automated blood neutrophils/100 leukocytes 62 % 42-75 Automated blood lymphocytes/100 leukocytes 20 % 12-44 Blood monocytes/100 leukocytes 15 % 0-12 Automated blood eosinophils/100 leukocytes 4 % 0-10 Automated blood basophils/100 leukocytes 0 % 0-10 Blood neutrophils automated count (number/volume) 5.2 10*3 1.8-7.8 Blood lymphocytes automated count (number/volume) 1.6 10*3 1.0-4.0 Blood monocytes automated count (number/volume) 1.2 10*3 0.0-1.0 Automated eosinophil count 0.3 10*3/uL 0.0-0.3 Automated blood basophil count (count/volume) 0.0 10*3/uL 0.0-0.1 Comprehensive metabolic panel - 06/15/16 06:04 Serum or plasma sodium measurement (moles/volume) 129 mmol/L 135-145 Serum or plasma potassium measurement (moles/volume) 3.7 mmol/L 3.6-5.0 Serum or plasma chloride measurement (moles/volume) 88 mmol/L 98-107 Carbon dioxide 30 mmol/L 21-32 Serum or plasma anion gap determination (moles/volume) 11 mmol/L 5-14 Serum or plasma urea nitrogen measurement (mass/volume) 6 mg/dL 7-18 Serum or plasma creatinine measurement (mass/volume) 0.54 mg/dL 0.60-1.30 Serum or plasma urea nitrogen/creatinine mass ratio 11 NRG Serum or plasma creatinine measurement with calculation of estimated glomerular filtration rate > NRG Serum or plasma glucose measurement (mass/volume) 101 mg/dL 70-105 Serum or plasma calcium measurement (mass/volume) 8.7 mg/dL 8.5-10.1 Serum or plasma total bilirubin measurement (mass/volume) 0.6 mg/dL 0.1-1.0 Serum or plasma alkaline phosphatase measurement (enzymatic activity/volume) 56 U/L 40-136 Serum or plasma aspartate aminotransferase measurement (enzymatic activity/ volume) 17 U/L 5-34 Serum or plasma alanine aminotransferase measurement (enzymatic activity/volume ) 13 U/L 0-55 Serum or plasma protein measurement (mass/volume) 5.8 g/dL 6.4-8.2 Serum or plasma albumin measurement (mass/volume) 2.9 g/dL 3.2-4.5 Complete blood count (CBC) with automated white blood cell (WBC) differential - 06/16/16 05:49 Blood leukocytes automated count (number/volume) 12.6 10*3/uL 4.3-11.0 Blood erythrocytes automated count (number/volume) 2.97 10*6/uL 4.35-5.85 Venous blood hemoglobin measurement (mass/volume) 9.4 g/dL 11.5-16.0 Blood hematocrit (volume fraction) 27 % 35-52 Automated erythrocyte mean corpuscular volume 90 [foz_us] 80-99 Automated erythrocyte mean corpuscular hemoglobin (mass per erythrocyte) 32 pg 25-34 Automated erythrocyte mean corpuscular hemoglobin concentration measurement ( mass/volume) 35 g/dL 32-36 Automated erythrocyte distribution width ratio 12.9 % 10.0-14.5 Automated blood platelet count (count/volume) 384 10*3/uL 130-400 Automated blood platelet mean volume measurement 9.5 [foz_us] 7.4-10.4 Automated blood neutrophils/100 leukocytes 72 % 42-75 Automated blood lymphocytes/100 leukocytes 14 % 12-44 Blood monocytes/100 leukocytes 12 % 0-12 Automated blood eosinophils/100 leukocytes 1 % 0-10 Automated blood basophils/100 leukocytes 0 % 0-10 Blood neutrophils automated count (number/volume) 9.1 10*3 1.8-7.8 Blood lymphocytes automated count (number/volume) 1.8 10*3 1.0-4.0 Blood monocytes automated count (number/volume) 1.5 10*3 0.0-1.0 Automated eosinophil count 0.2 10*3/uL 0.0-0.3 Automated blood basophil count (count/volume) 0.0 10*3/uL 0.0-0.1 PT panel in platelet poor plasma by coagulation assay - 06/16/16 05:49 Prothrombin time (PT) in platelet poor plasma by coagulation assay 13.6 s 12.2-14.7 INR in platelet poor plasma or blood by coagulation assay 1.1 0.8-1.4 Comprehensive metabolic panel - 06/16/16 05:49 Serum or plasma sodium measurement (moles/volume) 127 mmol/L 135-145 Serum or plasma potassium measurement (moles/volume) 2.9 mmol/L 3.6-5.0 Serum or plasma chloride measurement (moles/volume) 83 mmol/L 98-107 Carbon dioxide 28 mmol/L 21-32 Serum or plasma anion gap determination (moles/volume) 16 mmol/L 5-14 Serum or plasma urea nitrogen measurement (mass/volume) 5 mg/dL 7-18 Serum or plasma creatinine measurement (mass/volume) 0.56 mg/dL 0.60-1.30 Serum or plasma urea nitrogen/creatinine mass ratio 9 NRG Serum or plasma creatinine measurement with calculation of estimated glomerular filtration rate > NRG Serum or plasma glucose measurement (mass/volume) 132 mg/dL 70-105 Serum or plasma calcium measurement (mass/volume) 8.7 mg/dL 8.5-10.1 Serum or plasma total bilirubin measurement (mass/volume) 0.8 mg/dL 0.1-1.0 Serum or plasma alkaline phosphatase measurement (enzymatic activity/volume) 82 U/L 40-136 Serum or plasma aspartate aminotransferase measurement (enzymatic activity/ volume) 36 U/L 5-34 Serum or plasma alanine aminotransferase measurement (enzymatic activity/volume ) 30 U/L 0-55 Serum or plasma protein measurement (mass/volume) 6.2 g/dL 6.4-8.2 Serum or plasma albumin measurement (mass/volume) 3.1 g/dL 3.2-4.5 Complete urinalysis with reflex to culture - 06/16/16 12:15 Urine color determination YELLOW NRG Urine clarity determination CLEAR NRG Urine pH measurement by test strip 6.5 5-9 Specific gravity of urine by test strip 1.010 1.016- 1.022 Urine protein assay by test strip, semi-quantitative 2+ NEGATIVE Urine glucose detection by automated test strip NEGATIVE NEGATIVE Erythrocytes detection in urine sediment by light microscopy 5+ NEGATIVE Urine ketones detection by automated test strip NEGATIVE NEGATIVE Urine nitrite detection by test strip NEGATIVE NEGATIVE Urine total bilirubin detection by test strip NEGATIVE NEGATIVE Urine urobilinogen measurement by automated test strip (mass/volume) NORMAL NORMAL Urine leukocyte esterase detection by dipstick 3+ NEGATIVE Automated urine sediment erythrocyte count by microscopy (number/high power field) NONE NRG Automated urine sediment leukocyte count by microscopy (number/high power field ) TNTC NRG Bacteria detection in urine sediment by light microscopy LARGE NRG Crystals detection in urine sediment by light microscopy NONE NRG Casts detection in urine sediment by light microscopy NONE NRG Mucus detection in urine sediment by light microscopy NEGATIVE NRG Complete urinalysis with reflex to culture YES NRG Bacterial urine culture - 06/16/16 12:15 Bacterial urine culture [id number] NRG COLONY COUNT >100,000/ML NRG FTX;REPORTABLE SENSITIVITY REPORTED 06/17/16 16:10 [facility] Bacterial susceptibility panel - 06/16/16 12:15 Gentamicin susceptibility test by minimum inhibitory concentration < = NRG Trimethoprim/sulfamethoxazole susceptibility test by minimum inhibitoryconcentration <= NRG Ampicillin susceptibility test by minimum inhibitory concentration 4 NRG Tobramycin susceptibility test by minimum inhibitory concentration < = NRG Cefazolin susceptibility test by minimum inhibitory concentration < = NRG Ceftriaxone susceptibility test by minimum inhibitory concentration <= NRG Ampicillin/sulbactam susceptibility test by minimum inhibitory concentration 4 NRG Piperacillin/tazobactam susceptibility test by minimum inhibitory concentration <= NRG Ciprofloxacin susceptibility test by minimum inhibitory concentration <= NRG Meropenem susceptibility test by minimum inhibitory concentration < = NRG Nitrofurantoin susceptibility test by minimum inhibitory concentration <= NRG Aztreonam susceptibility test by minimum inhibitory concentration < = NRG Extended spectrum beta lactamase (ESBL) producing bacteria susceptibility test by minimum inhibitory concentration - [facility] Bacterial susceptibility panel - 06/16/16 12:15 Gentamicin susceptibility test by minimum inhibitory concentration < = NRG Trimethoprim/sulfamethoxazole susceptibility test by minimum inhibitoryconcentration <= NRG Ampicillin susceptibility test by minimum inhibitory concentration < = NRG Tobramycin susceptibility test by minimum inhibitory concentration < = NRG Cefazolin susceptibility test by minimum inhibitory concentration 8 NRG Ceftriaxone susceptibility test by minimum inhibitory concentration <= NRG Ampicillin/sulbactam susceptibility test by minimum inhibitory concentration <= NRG Piperacillin/tazobactam susceptibility test by minimum inhibitory concentration <= NRG Ciprofloxacin susceptibility test by minimum inhibitory concentration <= NRG Meropenem susceptibility test by minimum inhibitory concentration < = NRG Nitrofurantoin susceptibility test by minimum inhibitory concentration 128 NRG Aztreonam susceptibility test by minimum inhibitory concentration < = NRG Complete blood count (CBC) with automated white blood cell (WBC) differential - 06/18/16 17:45 Blood leukocytes automated count (number/volume) 14.8 10*3/uL 4.3-11.0 Blood erythrocytes automated count (number/volume) 3.26 10*6/uL 4.35-5.85 Venous blood hemoglobin measurement (mass/volume) 10.2 g/dL 11.5-16.0 Blood hematocrit (volume fraction) 29 % 35-52 Automated erythrocyte mean corpuscular volume 88 [foz_us] 80-99 Automated erythrocyte mean corpuscular hemoglobin (mass per erythrocyte) 31 pg 25-34 Automated erythrocyte mean corpuscular hemoglobin concentration measurement ( mass/volume) 35 g/dL 32-36 Automated erythrocyte distribution width ratio 13.2 % 10.0-14.5 Automated blood platelet count (count/volume) 516 10*3/uL 130-400 Automated blood platelet mean volume measurement 9.3 [foz_us] 7.4-10.4 Automated blood neutrophils/100 leukocytes 75 % 42-75 Automated blood lymphocytes/100 leukocytes 11 % 12-44 Blood monocytes/100 leukocytes 14 % 0-12 Automated blood eosinophils/100 leukocytes 0 % 0-10 Automated blood basophils/100 leukocytes 0 % 0-10 Blood neutrophils automated count (number/volume) 11.1 10*3 1.8-7.8 Blood lymphocytes automated count (number/volume) 1.6 10*3 1.0-4.0 Blood monocytes automated count (number/volume) 2.1 10*3 0.0-1.0 Automated eosinophil count 0.0 10*3/uL 0.0-0.3 Automated blood basophil count (count/volume) 0.0 10*3/uL 0.0-0.1 Blood manual differential performed detection - 06/18/16 17:45 Blood monocytes/100 leukocytes 8 % NRG Manual blood segmented neutrophils/100 leukocytes 82 % NRG Manual blood lymphocytes/100 leukocytes 10 % NRG Blood erythrocyte morphology finding identification NORMAL NRG Blood platelet adequacy detection by light microscopy INCREASED NRG Comprehensive metabolic panel - 06/18/16 17:45 Serum or plasma sodium measurement (moles/volume) 124 mmol/L 135-145 Serum or plasma potassium measurement (moles/volume) 2.2 mmol/L 3.6-5.0 Serum or plasma chloride measurement (moles/volume) 77 mmol/L 98-107 Carbon dioxide 31 mmol/L 21-32 Serum or plasma anion gap determination (moles/volume) 16 mmol/L 5-14 Serum or plasma urea nitrogen measurement (mass/volume) 10 mg/dL 7-18 Serum or plasma creatinine measurement (mass/volume) 0.57 mg/dL 0.60-1.30 Serum or plasma urea nitrogen/creatinine mass ratio 18 NRG Serum or plasma creatinine measurement with calculation of estimated glomerular filtration rate > NRG Serum or plasma glucose measurement (mass/volume) 117 mg/dL 70-105 Serum or plasma calcium measurement (mass/volume) 8.8 mg/dL 8.5-10.1 Serum or plasma total bilirubin measurement (mass/volume) 0.6 mg/dL 0.1-1.0 Serum or plasma alkaline phosphatase measurement (enzymatic activity/volume) 78 U/L 40-136 Serum or plasma aspartate aminotransferase measurement (enzymatic activity/ volume) 42 U/L 5-34 Serum or plasma alanine aminotransferase measurement (enzymatic activity/volume ) 50 U/L 0-55 Serum or plasma protein measurement (mass/volume) 6.2 g/dL 6.4-8.2 Serum or plasma albumin measurement (mass/volume) 3.2 g/dL 3.2-4.5 Complete blood count (CBC) with automated white blood cell (WBC) differential - 06/19/16 05:45 Blood leukocytes automated count (number/volume) 13.9 10*3/uL 4.3-11.0 Blood erythrocytes automated count (number/volume) 3.37 10*6/uL 4.35-5.85 Venous blood hemoglobin measurement (mass/volume) 10.4 g/dL 11.5-16.0 Blood hematocrit (volume fraction) 30 % 35-52 Automated erythrocyte mean corpuscular volume 89 [foz_us] 80-99 Automated erythrocyte mean corpuscular hemoglobin (mass per erythrocyte) 31 pg 25-34 Automated erythrocyte mean corpuscular hemoglobin concentration measurement ( mass/volume) 35 g/dL 32-36 Automated erythrocyte distribution width ratio 13.5 % 10.0-14.5 Automated blood platelet count (count/volume) 519 10*3/uL 130-400 Automated blood platelet mean volume measurement 9.5 [foz_us] 7.4-10.4 Automated blood neutrophils/100 leukocytes 68 % 42-75 Automated blood lymphocytes/100 leukocytes 18 % 12-44 Blood monocytes/100 leukocytes 14 % 0-12 Automated blood eosinophils/100 leukocytes 1 % 0-10 Automated blood basophils/100 leukocytes 0 % 0-10 Blood neutrophils automated count (number/volume) 9.4 10*3 1.8-7.8 Blood lymphocytes automated count (number/volume) 2.5 10*3 1.0-4.0 Blood monocytes automated count (number/volume) 1.9 10*3 0.0-1.0 Automated eosinophil count 0.1 10*3/uL 0.0-0.3 Automated blood basophil count (count/volume) 0.0 10*3/uL 0.0-0.1 Comprehensive metabolic panel - 06/19/16 05:45 Serum or plasma sodium measurement (moles/volume) 127 mmol/L 135-145 Serum or plasma potassium measurement (moles/volume) 2.4 mmol/L 3.6-5.0 Serum or plasma chloride measurement (moles/volume) 80 mmol/L 98-107 Carbon dioxide 30 mmol/L 21-32 Serum or plasma anion gap determination (moles/volume) 17 mmol/L 5-14 Serum or plasma urea nitrogen measurement (mass/volume) 9 mg/dL 7-18 Serum or plasma creatinine measurement (mass/volume) 0.55 mg/dL 0.60-1.30 Serum or plasma urea nitrogen/creatinine mass ratio 16 NRG Serum or plasma creatinine measurement with calculation of estimated glomerular filtration rate > NRG Serum or plasma glucose measurement (mass/volume) 110 mg/dL 70-105 Serum or plasma calcium measurement (mass/volume) 9.1 mg/dL 8.5-10.1 Serum or plasma total bilirubin measurement (mass/volume) 0.6 mg/dL 0.1-1.0 Serum or plasma alkaline phosphatase measurement (enzymatic activity/volume) 72 U/L 40-136 Serum or plasma aspartate aminotransferase measurement (enzymatic activity/ volume) 32 U/L 5-34 Serum or plasma alanine aminotransferase measurement (enzymatic activity/volume ) 42 U/L 0-55 Serum or plasma protein measurement (mass/volume) 6.0 g/dL 6.4-8.2 Serum or plasma albumin measurement (mass/volume) 3.1 g/dL 3.2-4.5 PT panel in platelet poor plasma by coagulation assay - 06/19/16 05:45 Prothrombin time (PT) in platelet poor plasma by coagulation assay 15.1 s 12.2-14.7 INR in platelet poor plasma or blood by coagulation assay 1.2 0.8-1.4 Thyroid Stimulating Hormone - 01/08/17 11:03 TSH 0.71 mIU/mL 0.32-5.00 Urine Culture - 01/08/17 11:12 PRELIM CULTURE RESULTS <10,000 Gram Positive Mixed Simi FINAL CULTURE RESULTS No Further Workup done MEDIA PLATED Setup at 11:49 on 01/09/2017 CULTURE SOURCE [id number] Influenza - 01/08/17 12:34 Influenza NEGATIVE FOR A and B 0.00-0.00 BMP - 01/09/17 05:45 Anion Gap 12 6-14 BUN 7 mg/dL 5-25 Calcium 7.8 mg/dL 8.3-10.4 Chloride 110 mmol/L 95-114 CO2 20 mEq/L 22-33 Creat 0.57 mg/dL 0.50-1.50 eGFR 100 mL/min/1.73m2 >59 Glucose 100 mg/dL 70-110 Osmo 287 280-295 Potassium 2.4 mmol/L 3.5-5.3 Sodium 140 mmol/L 134-148 Fecal Leukocyte - 01/09/17 12:27 Fecal Leukocyte Positive Negative C.difficile, DNA Amplification - 01/09/17 12:28 C.difficile, DNA Amplification NEGATIVE: No DNA evidence of toxogenic C. difficile detected. Negative Stool Culture - 01/09/17 12:55 CAMPYLOBACTER CULTURE FINAL REPORT E COLI SHIGA TOXIN EIA NEGATIVE NEGATIVE RESULT 1 NO SALMONELLA OR SHIGELLA RECOVERED. Salmonella/Shigella Screen FINAL REPORT Result 1 NO CAMPYLOBACTER SPECIES ISOLATED. Ova + Parasite Exam - 01/09/17 12:55 OVA + PARASITE EXAM FINAL REPORT RESULT 1 NO OVA, CYSTS, OR PARASITES SEEN. [facility] - 01/09/17 16:00 Anion Gap 16 6-14 BUN 7 mg/dL 5-25 Calcium 8.5 mg/dL 8.3-10.4 Chloride 106 mmol/L 95-114 CO2 22 mEq/L 22-33 Creat 0.62 mg/dL 0.50-1.50 eGFR 91 mL/min/1.73m2 >59 Glucose 101 mg/dL 70-110 Osmo 289 280-295 Potassium 3.0 mmol/L 3.5-5.3 Sodium 141 mmol/L 134-148 [facility] - 01/10/17 05:52 Anion Gap 15 6-14 BUN 5 mg/dL 5-25 Calcium 8.2 mg/dL 8.3-10.4 Chloride 107 mmol/L 95-114 CO2 22 mEq/L 22-33 Creat 0.58 mg/dL 0.50-1.50 eGFR 98 mL/min/1.73m2 >59 Glucose 94 mg/dL 70-110 Osmo 288 280-295 Potassium 2.6 mmol/L 3.5-5.3 Sodium 141 mmol/L 134-148 CBC with Auto Diff - 01/11/17 04:46 Baso% 0.30 % 0.00-2.50 Eos 0.1 K/uL 0.0-0.7 Eos% 0.9 % 0.0-7.0 Hct 31.7 % 36.0-46.0 Hgb 10.7 g/dL 13.0-15.0 Lym 2.34 K/uL 0.60-3.40 Lym% 34.9 % 10.0-50.0 MCH 31.7 pg 27.0-31.0 MCHC 33.8 g/dL 32.0-36.0 MCV 93.8 fL 80.0-97.0 [place]% 15.7 % 0.0-12.0 MPV 11.3 fL 7.4-10.0 Singh% 48.2 % 37.0-80.0 Plt 277 K/uL 150-400 RBC 3.38 M/uL 3.60-5.00 RDW 12.2 % 11.6-14.8 WBC 6.70 K/uL 5.00-10.00 Singh 3.23 K/uL 2.00-6.90 [place] 1.1 K/uL 0.0-0.9 Baso 0.0 K/uL 0.0-0.2 Urinalysis - 01/11/17 09:31 Icotest N/A Negative Urine Volume Urine Volume Sufficient (10mL) Urine Yeast No Yeast present Urine-Appearance Clear Clear Urine-Bacteria Trace Urine-Bilirubin Negative Negative Urine-Blood Trace-lysed Negative Urine-Color Yellow Colorless-Lt. Yellow Urine-Epithelial Cells 0-5/HPF Urine-Glucose Negative Negative Urine-Ketones Negative Negative Urine-Leukocytes Negative Negative Urine-Nitrite Negative Negative Urine-Other Urine Saved if Culture Needed (48hrs from time of collection) Urine-pH 6.0 5-8.5 Urine-Protein Negative Negative Urine-RBC 0-2/HPF Urine-Specific [place] <=1.005 1.000-1.030 Urine-WBC Negative Urobilinogen 0.2 E.U./dL 0.2-1.0 BMP - 01/12/17 07:00 Anion Gap 17 6-14 BUN 5 mg/dL 5-25 Calcium 8.9 mg/dL 8.3-10.4 Chloride 100 mmol/L 95-114 CO2 26 mEq/L 22-33 Creat 0.55 mg/dL 0.50-1.50 eGFR 105 mL/min/1.73m2 >59 Glucose 100 mg/dL 70-110 Osmo 287 280-295 Potassium 3.1 mmol/L 3.5-5.3 Sodium 140 mmol/L 134-148 BMP - 01/14/17 09:55 Anion Gap 18 6-14 BUN 8 mg/dL 5-25 Calcium 8.8 mg/dL 8.3-10.4 Chloride 99 mmol/L 95-114 CO2 23 mEq/L 22-33 Creat 0.66 mg/dL 0.50-1.50 eGFR 85 mL/min/1.73m2 >59 Glucose 92 mg/dL 70-110 Osmo 279 280-295 Potassium 3.8 mmol/L 3.5-5.3 Sodium 136 mmol/L 134-148 Protime - 01/17/17 16:08 INR 3.9 1.0-4.0 Protime 49.1 Sec 9.9-12.8 Urinalysis - 01/17/17 19:02 Icotest N/A Negative Urine Crystals Amorphous material: abundant/HPF Urine Volume Urine Volume Sufficient (10mL) Urine Yeast No Yeast present Urine-Appearance Cloudy Clear Urine-Bacteria Trace Urine-Bilirubin Negative Negative Urine-Blood 1+ Negative Urine-Color Yellow Colorless-Lt. Yellow Urine-Epithelial Cells 0-5/HPF Urine-Glucose Negative Negative Urine-Ketones Negative Negative Urine-Leukocytes Negative Negative Urine-Nitrite Negative Negative Urine-Other Culture to follow; CATH URINE SPECIMEN Urine-pH 5.0 5-8.5 Urine-Protein Negative Negative Urine-RBC 1-3/HPF Urine-Specific [place] 1.020 1.000-1.030 Urine-WBC 1-3/HPF Urobilinogen 0.2 0.2-1.0 Urine Culture - 01/17/17 19:02 PRELIM CULTURE RESULTS No Growth 24 hours FINAL CULTURE RESULTS No Growth 48 hours MEDIA PLATED Setup at 19:46 on 01/17/2017 CULTURE SOURCE cath urine specimen Influenza - 01/17/17 19:40 Influenza NEGATIVE FOR A and B 0.00-0.00 Blood Culture - 01/17/17 19:40 PRELIM CULTURE RESULTS Blood Culture Negative, No Growth Day 1 FINAL CULTURE RESULTS Blood Culture Negative, No Growth Day 5 MEDIA PLATED Setup at 20:08 on 01/17/[id number] Culture Media Position C48 CULTURE SOURCE BLOOD CULTURE #1 RIGHT HAND Blood Culture - 01/17/17 19:42 PRELIM CULTURE RESULTS Blood Culture Negative, No Growth Day 1 FINAL CULTURE RESULTS Blood Culture Negative, No Growth Day 5 MEDIA PLATED Setup at 20:07 on 01/17/[id number] Culture Media Position C43 CULTURE SOURCE BLOOD CULTURE #2 LEFT HAND Mycoplasma - 01/18/17 05:30 Mycoplasma Negative Negative Comprehensive Metabolic Panel - 01/19/17 07:00 Albumin 3.2 g/dL 3.6-5.1 ALP 69 U/L 35-130 ALT 11 U/L 6-45 Anion Gap 15 6-14 AST 15 U/L 2-40 BUN 8 mg/dL 5-25 Calcium 8.9 mg/dL 8.3-10.4 Chloride 102 mmol/L 95-114 CO2 23 mEq/L 22-33 Creat 0.67 mg/dL 0.50-1.50 eGFR 83 mL/min/1.73m2 >59 Globulin 3.4 g/dL 2.3-3.5 Glucose 96 mg/dL 70-110 Osmo 281 280-295 Potassium 3.4 mmol/L 3.5-5.3 Sodium 137 mmol/L 134-148 TBil 0.3 mg/dL 0.2-1.2 TP 6.6 g/dL 6.0-8.3 Protime - 01/19/17 08:05 INR 3.1 1.0-4.0 Protime 38.3 Sec 9.9-12.8 Potassium - 01/21/17 09:36 Potassium 3.9 mmol/L 3.5-5.3 Potassium - 04/02/17 10:20 Potassium 4.6 mmol/L 3.5-5.3 BMP - 07/04/17 13:57 Anion Gap 15 6-14 BUN 12 mg/dL 5-25 Calcium 10.0 mg/dL 8.3-10.4 Chloride 103 mmol/L 95-114 CO2 24 mEq/L 22-33 Creat 0.77 mg/dL 0.50-1.50 eGFR 71 mL/min/1.73m2 >59 Glucose 108 mg/dL 70-110 Osmo 285 280-295 Potassium 4.3 mmol/L 3.5-5.3 Sodium 138 mmol/L 134-148 Lipid Panel - 01/02/18 08:04 C/HDL 3.7 3.7-6.7 Cholesterol 195 mg/dL 100-240 HDL 53 mg/dL 30-85 LDL-Calculated 124 mg/dL 0-100 Trig 91 mg/dL 35-160 VLDL 18 mg/dL 0-42 Lipid Panel - 07/03/18 07:50 C/HDL 3.6 3.7-6.7 Cholesterol 172 mg/dL 100-240 HDL 48 mg/dL 30-85 LDL-Calculated 107 mg/dL 0-100 Trig 83 mg/dL 35-160 VLDL 17 mg/dL 0-42 BNP - 12/24/18 17:15 BNP 687.90 pg/ml 0.00-100.00 Encounters ACCT No. Visit Date/Time Discharge Status Pt. Type Provider Facility Loc./Unit Complaint [id number] 06/13/2016 10:52:00 06/20/2016 12:20:00 DIS Inpatient GUILLERMO MCKEON, MICHELLE Conde [facility] IRF IRF-LEFT HIP HEMIARTHROPLASTY [id number] 06/09/2016 18:20:00 06/13/2016 10:52:00 DIS Inpatient KOLBY MCKEON, GIGI Shell [facility] 4TH L HIP FRACTURE, ANTICOAGULATION, HYPONATREMIC [id number] 04/21/2015 14:40:00 04/21/2015 23:59:59 CLS Outpatient WALKER SMITH MD [facility] RAD LEFT ARM NUMBNESS [id number] 12/24/2018 21:30:00 ACT Inpatient VALENCIA MCKEON, MONIKA Shell [facility] 4TH CHF,RESPIRATORY DISTRES [facility] 04/21/2015 14:41:36 ACT Document Registration [id number] 12/24/2018 17:07:00 12/24/2018 20:55:00 [id number] 10/17/2018 10:37:00 10/17/2018 23:59:00 DIS Outpatient Haroldo Benton [id number] 07/03/2018 07:35:00 07/03/2018 23:59:00 DIS Outpatient Haroldo Benton [id number] 01/02/2018 07:54:00 01/02/2018 23:59:00 DIS Outpatient Haroldo Benton [id number] 10/02/2017 11:10:00 10/02/2017 23:59:00 DIS Outpatient Haroldo Benton [id number] 07/04/2017 13:53:00 07/04/2017 23:59:00 DIS Outpatient Haroldo Benton [id number] 04/02/2017 10:15:00 04/02/2017 23:59:00 DIS Outpatient Haroldo Benton [id number] 01/21/2017 09:22:00 01/21/2017 23:59:00 DIS Outpatient OSIRIS BURGOS [id number] 01/17/2017 15:20:00 01/19/2017 12:30:00 DIS Outpatient OSIRIS BURGOS [facility] MED-SURG [id number] 01/14/2017 09:51:00 01/14/2017 23:59:00 DIS Outpatient Haroldo Benton [id number] 01/08/2017 10:41:00 01/12/2017 16:50:00 DIS Inpatient Haroldo Benton [facility] MED-S[facility]G [id number] 01/08/2017 10:27:00 01/08/2017 23:59:00 DIS Outpatient Haroldo Benton [id number] 09/04/2016 10:40:00 11/13/2016 11:10:00 DIS Outpatient Haroldo Benton [id number] 10/01/2016 10:20:00 10/01/2016 23:59:00 DIS Outpatient Haroldo Benton [id number] 01/08/2017 11:55:40 Document Registration [id number] 06/20/2016 11:22:00 Document Registration
[2018-12-24 23:17] VITALS: BP 122/69
[2018-12-24 23:48] VITALS: BP 131/60
[2018-12-24 23:53] VITALS: BP 122/69
--- NOTE | 2018-12-25 | NUR ---
5241-this rn received a call from Julio in ENGINE MANAGER client technical support associate stating pt hr is 130-140s and sustaining, pt sitting up in bed, no distress noted. this rn called dr. hoover to inform him of the elevated heart rate, pt has history of afib according to her daughters & takes Betapace BID-Jordyn pt dpoa & daughter stated pt had not taken her night time medication yet. order to restart Betapace 80mg BID 0100-hr 116, pt resting in bed, no distress noted
[2018-12-25] MEDS ORDERED: SOTALOL 80 MG (BETAPACE) TAB ONE (00:10)
[2018-12-25] MEDS: SOTALOL 80 MG (BETAPACE) TAB PO SCH ×3 (00:14→20:44)
[2018-12-25] MEDS: BENZONATATE 100 MG (TESSALON) CAPSULE PO PRN ×2 (00:19→18:18)
[2018-12-25] MEDS: MELATONIN 3 MG TABLET PO PRN ×2 (00:19→20:44)
[2018-12-25] MEDS ORDERED: RT-ALBUTEROL/IPRATROPIUM 3 ML (DUONEB) VIAL ONE (00:58)
[2018-12-25] MEDS: RT-ALBUTEROL/IPRATROPIUM 3 ML (DUONEB) VIAL INH SCH ×4 (03:15→20:26)
[2018-12-25 04:14] VITALS: BP 110/65
[2018-12-25 05:34] LABS: BASOPHILS % (AUTO) 0 % (0-10); EOSINOPHILS % (AUTO) 1 % (0-10); HEMATOCRIT 30 % (35-52); HEMOGLOBIN 9.7 G/DL (11.5-16.0); LYMPHOCYTES # (AUTO) 1.8 X 10^3 (1.0-4.0); LYMPHOCYTES % (AUTO) 22 % (12-44); MEAN CORPUSCULAR HEMOGLOBIN 30 PG (25-34); MEAN CORPUSCULAR HGB CONC 32 G/DL (32-36); MEAN CORPUSCULAR VOLUME 94 FL (80-99); MEAN PLATELET VOLUME 10.3 FL (7.4-10.4); MONOCYTES # (AUTO) 0.9 X 10^3 (0.0-1.0); MONOCYTES % (AUTO) 12 % (0-12); NEUTROPHILS # (AUTO) 5.3 X 10^3 (1.8-7.8); NEUTROPHILS % (AUTO) 65 % (42-75); PLATELET COUNT 275 10^3/uL (130-400); RED CELL DISTRIBUTION WIDTH 14.1 % (10.0-14.5); WHITE BLOOD COUNT 8.1 10^3/uL (4.3-11.0)
[2018-12-25 05:57] LABS: INR 2.2 (0.8-1.4); PROTHROMBIN TIME PATIENT 24.7 SEC (12.2-14.7)
[2018-12-25 05:58] LABS: BUN/CREATININE RATIO 18; CALCIUM 9.8 MG/DL (8.5-10.1); CARBON DIOXIDE 22 MMOL/L (21-32); CHLORIDE 99 MMOL/L (98-107); CREATININE SERUM 0.76 MG/DL (0.60-1.30); GFR ESTIMATED > 60; GLUCOSE 124 MG/DL (70-105); POTASSIUM 3.7 MMOL/L (3.6-5.0); SODIUM 135 MMOL/L (135-145)
[2018-12-25] MEDS ORDERED: FLU QUADRIvalent (5+ YOA) 2018-2019 (AFLURIA) 0.5 ML IM ONE (07:45)
[2018-12-25 08:00] VITALS: BP 132/58
[2018-12-25] MEDS: FUROSEMIDE 40 MG/4 ML INJ (LASIX) IV SCH ×2 (08:38→20:44)
--- NOTE | 2018-12-25 10:05 | History & Physical-Hospitalist ---
History of Present Illness HPI/Chief Complaint Pt is an 88yoCF with a PMH of a-fib, aortic stenosis, HTN who presented to the ER due to SOB and wheezing. Her daughter noticed on 12/21 that she was more dyspneic with exertion and wheezing. Over the next few days she became more SOB and confused and they decided to seek evaluation. She was unable to get in to her PCP so was [place] [facility] was found to be hypoxic. Rapid flu was reportedly negative and her BNP was elevated. CXR per report from the [facility] L[facility]ER in the ER revealed vascular congestion. She was admitted for IV diuresis for presumed heart failure. Source: patient, family Date Seen 12/25/18 Time Seen by a Provider: 10:05 Attending Physician Monika Akhtar MD PCP Haroldo Benton DO Referring Physician Date of Admission Dec 24, 2018 at 21:30 Home Medications & Allergies Home Medications Reviewed patient Home Medication Reconciliation performed by pharmacy medication reconciliations lab animal technician and/or nursing. Patients Allergies have been reviewed. Allergies Allergies Coded Allergies No Known Drug Allergies (Unverified06/09/16) Past Bcwkqav-Uaaraq-Nwttze Hx Past Med/Social Hx: Reviewed Nursing Past Med/Soc Hx Patient Social History Employed/Student: retired Alcohol Use: Denies Use Recreational Drug Use: No Smoking Status: Never a Smoker 2nd Hand Smoke Exposure: No Physical Abuse Screen: No Sexual Abuse: No Recent Foreign Travel: No Contact w/other who traveled: No Recent Hopitalizations: No Recent Infectious Disease Expo: No Immunizations Up To Date Tetanus Booster (TDap): Unknown Pediatric: Yes Date of Pneumonia Vaccine: Aug 14, 2018 Date of Influenza Vaccine: Jul 14, 2019 Seasonal Allergies Seasonal Allergies: No Past Medical History Surgeries: Eye Surgery Currently Using CPAP: No Currently Using BIPAP: No Cardiac: Atrial Fibrillation, High Cholesterol, Hypertension, Valvular Heart Disease (aortic stenosis) Reproductive: No Sexually Transmitted Disease: No HIV/AIDS: No Female Reproductive Disorders: Denies Gastrointestinal: Gastroesophageal Reflux, Chronic Diarrhea Musculoskeletal: Arthritis HEENT: Cataract Loss of Vision: Denies Hearing Impairment: Hard of Hearing, Bilateral Hearing Aide Psychosocial: Anxiety 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) Adverse Reaction to Blood Wright: No Family History Reviewed Nursing Family Hx Alcoholism 19 FATHER Arthritis 19 MOTHER FH: breast cancer in first degree relative G8 SISTER FH: cirrhosis G8 BROTHER Review of Systems ROS-Unable to Obtain: limited somewhat due to difficulty with hearing Constitutional: No chills, No fever EENTM: no symptoms reported Respiratory: cough, dyspnea on exertion; No phlegm; short of breath, wheezing Cardiovascular: see HPI; No chest pain; edema, vascular heart diseas Gastrointestinal: diarrhea Genitourinary: no symptoms reported Musculoskeletal: no symptoms reported Skin: no symptoms reported Psychiatric/Neurological: No Symptoms Reported Physical Exam Physical Exam Vital Signs Vital Signs - First Documented 12/24/18 23:53 FiO2 36 Capillary Refill : Height, Weight, BMI Height: 4'9.00" Weight: 117lbs. 6.4oz. 53.318274qu; 25.4 BMI Method:Stated General Appearance: No Apparent Distress, WD/WN Neck: Normal Inspection, Supple Respiratory: Lungs Clear, No Respiratory Distress Cardiovascular: Regular Rate, Rhythm, No JVD, Normal Peripheral Pulses, Systolic Murmur Gastrointestinal: Normal Bowel Sounds, Non Tender, Soft Extremity: Non Tender, No Calf Tenderness, Swelling (1+ to ankles) Neurologic/Psychiatric: Alert, Normal Mood/Affect, Other (oriented to person, place, and major details ) Skin: Normal Color, Warm/Dry Results Results/Procedures Labs Laboratory Tests 12/25/18 05:00 Patient resulted labs reviewed. Assessment/Plan Admission Diagnosis Acutely decompensated heart failure Admission Status: Inpatient Order (span 2 midnights) Reason for Inpatient Admission: IV lasix, need evaluation of aortic stenosis, cardiology consulted, hypoxic and on oxygen Diagnosis/Problems Diagnosis/Problems (1) CHF exacerbation Assessment & Plan: Echo ordered Cardiology consulted Continue IV lasix Concerned for worsening aortic stenosis as etiology Qualifiers: Heart failure type: unspecified Qualified Codes: I50.9 - Heart failure, unspecified (2) Atrial fibrillation Status: Chronic Assessment & Plan: Currently in sinus rhythm Will resume home medications INR within range Documented as 126 rate this AM but regular rate during my exam Qualifiers: Atrial fibrillation type: paroxysmal Qualified Codes: I48.0 - Paroxysmal atrial fibrillation (3) Essential (primary) hypertension Assessment & Plan: BP well controlled Trend (4) Anticoagulant long-term use Status: Acute Assessment & Plan: INR within range Due to a-fib Clinical Quality Measures DVT/VTE Risk/Contraindication: Risk Factor Score Per Nursin RFS Level Per Nursing on Admit: 4+=Very High MONIKA AKHTAR MD Dec 25, 2018 10:05
[2018-12-25] MEDS ORDERED: AMLO10TA7 PO (10:42)
[2018-12-25] MEDS ORDERED: WARF3TAB56 PO ×2 (10:42)
[2018-12-25] MEDS ORDERED: CETI10TA20 PO (10:42)
[2018-12-25] MEDS ORDERED: SIMV20TA3 PO (10:42)
[2018-12-25] MEDS ORDERED: MULT1TAB69 PO (10:42)
[2018-12-25] MEDS ORDERED: CHOL200059 PO (10:42)
[2018-12-25] MEDS ORDERED: OMEP40CA36 PO (10:42)
[2018-12-25] MEDS ORDERED: SOTA80TA PO (10:42)
[2018-12-25] MEDS ORDERED: POTA-51 PO (10:42)
[2018-12-25] MEDS ORDERED: POTA20TA15 PO (10:42)
[2018-12-25] MEDS ORDERED: LOPE-134 PO (10:42)
--- NOTE | 2018-12-25 10:45 | NUR ---
SPOKE WITH THE PATIENT AND FAMILY ABOUT MEDICATIONS. THEY HAD A DETAILED MEDICATION LIST AND I COMPARED IT WITH THE EXT MED HX. THE SOTALOL WAS FILLED IN OCTOBER FOR #180 FOR A 60 DAY SUPPLY HOWEVER THEY STATE SHE TAKES IT 1 BID AND HAS TAKEN IT THAT WAY FOR SOME TIME.
[2018-12-25 12:00] VITALS: BP 132/53
--- NOTE | 2018-12-25 15:03 | Consultation-Cardiology ---
HPI-Cardiology Cardiology Consultation: Date of Consultation 12/25/18 Date of Admission Attending Physician Josiane Akhtar MD Admitting Physician Haroldo Benton DO Consulting Physician Sumaya SHINE MD HPI: Time Seen by a Provider: 15:03 Chief Complaint: Shortness of breath This is a 88-year-old lady who follows with Dr. Guy for outpatient cardiology. She has history of paroxysmal atrial fibrillation on sotalol, aortic stenosis, hypertension. She presented to the ER with shortness of breath. She has been short of breath for the last few days especially with exertion. Chest x-ray shows vascular congestion. Influenza was negative. Elevated BNP. She was found to be hypoxic in the ER. She was admitted for heart failure management. Review of Systems-Cardiology Review of Systems Constitutional: As described under HPI; No As described under HPI, No no symptoms reported, No chills, No fever, No lightheadedness Eyes: No As described under HPI, No no symptoms reported, No blindness, No blurred vision, No contact lenses, No drainage, No decreased acuity, No foreign body sensation, No pain, No vision change Ears/Nose/Throat: No As described under HPI, No no symptoms reported, No chronic hearing loss, No ear discharge, No ear pain, No nasal drainage, No ulcerations Respiratory: No no symptoms reported; As described under HPI; No As described under HPI, No cough; orthopnea, shortness of breath; No SOB with excertion Cardiovascular: No no symptoms reported; As described under HPI; No As described under HPI, No chest pain, No edema, No irregular heart rate, No lightheadedness, No palpitations Gastrointestinal: No no symptoms reported, No As described under HPI, No abdomen distended, No abdominal pain, No blood streaked bowels, No constipation , No diarrhea, No nausea, No vomiting, No stool coloration changes Genitourinary: No As described under HPI, No burning, No dysuria, No discharge , No frequency, No flank pain, No hematuria, No urgency : Yes : No Skin: No rash, No skin related problems, No ulcerations Psychiatric/Neurological: No anxiety, No depression, No seizure, No focal weakness, No syncope Hematologic: No bleeding abnormalities [id number] Hx Patient Social History Employed/Student: retired Alcohol Use: Denies Use Recreational Drug Use: No Smoking Status: Never a Smoker 2nd Hand Smoke Exposure: No Recent Foreign Travel: No Recent Infectious Disease Expo: No Hospitalization with Isolation: Denies Physical Abuse Screen: No Sexual Abuse: No Immunizations Up To Date Tetanus Booster (TDap): Unknown Date of Pneumonia Vaccine: Aug 14, 2018 Date of Influenza Vaccine: Jul 14, 2018 Past Medical History PMH As described under Assessment. Family Medical History Family History: Alcoholism 19 FATHER Arthritis 19 MOTHER FH: breast cancer in first degree relative G8 SISTER FH: cirrhosis G8 BROTHER Allergies and Home Medications Allergies Coded Allergies: No Known Drug Allergies (Unverified , 06/09/16) Home Medications Amlodipine Besylate 10 Mg Tablet, 10 MG PO DAILY, (Reported) Cetirizine HCl 10 Mg Tablet, 10 MG PO DAILY, (Reported) Cholecalciferol (Vitamin D3) 2,000 Unit Tablet, 2,000 UNIT PO DAILY, (Reported) L. Rhamnosus GG/Inulin 1 Each Cap.sprink, 1 CAP PO DAILY, (Reported) Loperamide HCl 2 Mg Tablet, 2 MG PO BID, (Reported) Multivitamin 1 Each Tablet, 1 TAB PO DAILY, (Reported) Omeprazole 40 Mg Capsule.dr, 40 MG PO DAILY, (Reported) Potassium Chloride 20 Meq Tab.er.prt, 40 MEQ PO DAILY, (Reported) TAKES 2 (20MEQ) TABLETS Potassium Chloride 20 Meq Tablet.er, 20 MEQ PO HS, (Reported) Simvastatin 20 Mg Tablet, 20 MG PO HS, (Reported) Sotalol HCl 80 Mg Tablet, 80 MG PO BID, (Reported) Warfarin Sodium 3 Mg Tablet, 3 MG PO SuSa, (Reported) Warfarin Sodium 3 Mg Tablet, 4.5 MG PO MoTuWeThFr, (Reported) TAKES 1 & 1/2 (3MG) TABLETS Patient Home Medication List Home Medication List Reviewed: Yes Physical Exam-Cardiology Physical Exam Vital Signs/I&O 12/25/18 12/25/18 12/25/18 12/25/18 04:14 04:35 07:00 08:00 Temp 98.5 98.3 Pulse 106 126 124 Resp 20 20 B/P (MAP) 110/65 (80) 132/58 (82) Pulse Ox 96 91 94 O2 Delivery Nasal Cannula Nasal Cannula Nasal Cannula O2 Flow Rate 4.00 4.00 4.00 12/25/18 12/25/18 12/25/18 12/25/18 08:00 12:00 13:00 14:11 Temp 98.8 Pulse 71 76 Resp 20 B/P (MAP) 132/53 (79) Pulse Ox 94 96 100 O2 Delivery Nasal Cannula Nasal Cannula Nasal Cannula O2 Flow Rate 4.00 5.00 3.50 12/25/18 00:00 Intake Total 0 ml Output Total 0 ml Balance 0 ml Capillary Refill : Constitutional: appears stated age, AAO x 3; No apparent distress; well- developed, well-nourished HEENT: PERRL; No normal ENT inspection, No TMs normal, No pharynx normal, No scleral icterus (R), No scleral icterus (L), No pale conjunctivae (R), No pale conjunctivae (L), No photophobia, No TM abnormal (R), No TM abnormal (L), No pharyngeal erythema, No tonsillar exudate, No other, No discharge, No EOMI; hearing is well preserved; No hard of hearing; oral hygience is good; No ulceration, No xanthelasmas are seen Neck: No non-tender, No full range of motion, No supple, No normal inspection, No carotid bruit, No limited range of motion, No lymphadenopathy (R), No lymphadenopathy (L), No tender lateral, No tender midline, No thyromegaly, No other; carotid pulses are 2 + bilaterally; No with good upstrokes Respiratory: No accessory muscle use, No respiratory distress, No chest tender , No chest expansion is symmetric; chest is bilaterally symmetric; No lungs clear to percussion; lungs clear to auscultation; No crackles, No rhonchi, No rales, No stridor, No wheezing, No pleural rub, No other Cardiovascular: regular rate-rhythm, S1 and S2, systolic murmur Gastrointestinal: No tender, No soft, No round, No distended, No pulsatile mass , No organomegaly, No guarding, No rebound, No tenderness, No hernia, No mass, No audible bowel sounds, No abnormal bowel sounds, No abdominal bruits, No spleenomegaly, No other Extremities: No normal range of motion, No non-tender, No normal inspection, No pedal edema, No calf tenderness, No normal capillary refill, No pelvis stable , No calf tenderness, No inflammation, No pedal edema, No slow capillary refill , No swelling, No other, No abrasion, No clubbing, No cyanosis, No ecchymosis, No laceration, No no lower extremity edema bilateral, No significant edema, No tenderness, No wound Neurologic/Psychiatric: no motor/sensory deficits, alert, normal mood/affect, oriented x 3, power is 5/5 both on sides Skin: No normal color, No warm/dry, No cyanosis, No cool, No diaphoresis, No damp, No ecchymosis, No jaundice, No mottled, No pallor, No rash, No tattoos/ piercings, No ulcerations, No rash on exposed areas, No ulcerations on exposed areas, No other Data Review Labs Laboratory Tests 12/25/18 05:00: White Blood Count 8.1, Red Blood Count 3.22L, Hemoglobin 9.7L, Hematocrit 30L, Mean Corpuscular Volume 94, Mean Corpuscular Hemoglobin 30, Mean Corpuscular Hemoglobin Concent 32, Red Cell Distribution Width 14.1, Platelet Count 275, Mean Platelet Volume 10.3, Neutrophils (%) (Auto) 65, Lymphocytes (%) (Auto) 22 , Monocytes (%) (Auto) 12, Eosinophils (%) (Auto) 1, Basophils (%) (Auto) 0, Neutrophils # (Auto) 5.3, Lymphocytes # (Auto) 1.8, Monocytes # (Auto) 0.9, Eosinophils # (Auto) 0.0, Basophils # (Auto) 0.0, Prothrombin Time 24.7H, INR Comment 2.2H, Sodium Level 135, Potassium Level 3.7, Chloride Level 99, Carbon Dioxide Level 22, Anion Gap 14, Blood Urea Nitrogen 14, Creatinine 0.76, Estimat Glomerular Filtration Rate > 60, BUN/Creatinine Ratio 18, Glucose Level 124H, Calcium Level 9.8 ECG Impression ECG Initial ECG Rhythm: Normal Sinus A/P-Cardiology Assessment/Admission Diagnosis Acute diastolic congestive heart failure, Moderate to severe aortic stenosis, Moderate aortic regurgitation, Moderate to severe mitral regurgitation, Moderate to severe pulmonary hypertension, Paroxysmal atrial fibrillation, Hypertension Plan Echocardiogram done 12/25/2018 shows normal LV function with likely diastolic heart failure. IVC is dilated. PA pressure is 5560 mmHg. Moderate to severe aortic stenosis with mean gradient of 20 mmHg, aortic valve area by VTI 0.9 cm . Moderate aortic regurgitation. Moderate to severe mitral regurgitation with peak velocity of 5.4 m/s. Acute diastolic congestive heart failure, responded to IV Lasix. Moderate to severe aortic stenosis, with diastolic congestive heart failure and pulmonary hypertension. She may be a candidate to be evaluated for either surgical aortic valve replacement or TAVR. Moderate aortic regurgitation, associated with moderate to severe aortic stenosis. She may require some kind of valve intervention in the near future. Moderate to severe mitral regurgitation, heavily calcified mitral valve. Moderate to severe pulmonary hypertension, Paroxysmal atrial fibrillation, continue sotalol and warfarin. Hypertension. The patient follows with Dr. uGy, cardiology as an outpatient for a long time. I will defer further decision making as far as valve evaluation is concerned to him. Complicated patient as above. Thank you for your consultation. Please call me if you have any questions. Katie Shine MD, FACP, FACC, FSCAI, FHRS, CCDS Interventional Cardiology Cardiac Electrophysiology Vascular Medicine and Endovascular Interventions Clinical Quality Measures DVT/VTE Risk/Contraindication: Risk Factor Score Per Nursin RFS Level Per Nursing on Admit: 4+=Very High Sumaya SHINE MD Dec 25, 2018 3:03 pm
[2018-12-25 16:00] VITALS: BP 119/56
[2018-12-25] MEDS ORDERED: warFARin 3 MG (COUMADIN) TAB PO SCH (18:00)
[2018-12-25 19:55] VITALS: BP 117/62
[2018-12-25] MEDS: LOPERAMIDE 2 MG (IMODIUM) CAP PO SCH (20:44)
[2018-12-25] MEDS ORDERED: SIMvastatin 20 MG (ZOCOR) TAB PO SCH (21:00)
[2018-12-25 23:29] VITALS: BP 111/53
[2018-12-26] MEDS: RT-ALBUTEROL/IPRATROPIUM 3 ML (DUONEB) VIAL INH SCH ×2 (01:31→07:17)
[2018-12-26 04:00] VITALS: BP 113/55
[2018-12-26 05:54] LABS: BASOPHILS % (AUTO) 0 % (0-10); EOSINOPHILS # (AUTO) 0.4 10^3/uL (0.0-0.3); EOSINOPHILS % (AUTO) 7 % (0-10); HEMATOCRIT 27 % (35-52); LYMPHOCYTES # (AUTO) 2.6 X 10^3 (1.0-4.0); LYMPHOCYTES % (AUTO) 39 % (12-44); MEAN CORPUSCULAR HEMOGLOBIN 31 PG (25-34); MEAN CORPUSCULAR HGB CONC 33 G/DL (32-36); MEAN CORPUSCULAR VOLUME 93 FL (80-99); MEAN PLATELET VOLUME 10.7 FL (7.4-10.4); MONOCYTES # (AUTO) 1.2 X 10^3 (0.0-1.0); MONOCYTES % (AUTO) 17 % (0-12); NEUTROPHILS # (AUTO) 2.5 X 10^3 (1.8-7.8); NEUTROPHILS % (AUTO) 37 % (42-75); PLATELET COUNT 255 10^3/uL (130-400); RED CELL DISTRIBUTION WIDTH 13.8 % (10.0-14.5); WHITE BLOOD COUNT 6.7 10^3/uL (4.3-11.0)
[2018-12-26 06:04] LABS: INR 2.2 (0.8-1.4); PROTHROMBIN TIME PATIENT 24.7 SEC (12.2-14.7)
[2018-12-26] MEDS: BENZONATATE 100 MG (TESSALON) CAPSULE PO PRN (06:10)
[2018-12-26 06:12] LABS: BUN/CREATININE RATIO 26; CALCIUM 8.5 MG/DL (8.5-10.1); CARBON DIOXIDE 23 MMOL/L (21-32); CHLORIDE 97 MMOL/L (98-107); GFR ESTIMATED > 60; GLUCOSE 97 MG/DL (70-105); SODIUM 133 MMOL/L (135-145)
[2018-12-26] MEDS ORDERED: KCL 20 MEQ TAB (K-DUR) PO SCH ×2 (07:00→17:00)
[2018-12-26 08:00] VITALS: BP 125/60
[2018-12-26] MEDS: LOPERAMIDE 2 MG (IMODIUM) CAP PO SCH (08:10)
[2018-12-26] MEDS: SOTALOL 80 MG (BETAPACE) TAB PO SCH (08:11)
[2018-12-26] MEDS: FUROSEMIDE 40 MG/4 ML INJ (LASIX) IV SCH (08:11)
[2018-12-26] MEDS ORDERED: LORATADINE (CLARITIN) 10 MG TAB PO SCH (09:00)
[2018-12-26] MEDS ORDERED: LACTOBACILLUS ACIDOPHILUS (PROBIOTIC) CAPSULE PO SCH (09:00)
[2018-12-26 12:00] VITALS: BP 103/64
--- NOTE | 2018-12-26 12:15 | Discharge Summary-Hospitalist ---
Diagnosis/Chief Complaint Date of Admission Dec 24, 2018 at 21:30 Date of Discharge Discharge Date: Dec 26, 2018 Admission Diagnosis Acutely decompensated heart failure Discharge Diagnosis (1) CHF exacerbation Assessment & Plan: Echo ordered Cardiology consulted Continue IV lasix Concerned for worsening aortic stenosis as etiology (2) Atrial fibrillation Status: Chronic Assessment & Plan: Currently in sinus rhythm Will resume home medications INR within range (3) Essential (primary) hypertension Assessment & Plan: BP well controlled Trend (4) Anticoagulant long-term use Status: Acute Assessment & Plan: INR within range Due to a-fib Discharge Summary Procedures/Consulations Dr Shine- Cardiology Discharge Physical Exam Allergies: Coded Allergies: No Known Drug Allergies (Unverified , 06/09/16) Vitals & I&Os Vital Signs Date Time Temp Pulse Resp B/P (MAP) Pulse Ox O2 Delivery O2 Flow Rate FiO2 12/26/18 13:30 12/26/18 13:00 67 12/26/18 12:00 97.5 22 95 Room Air 12/26/18 08:15 2.00 12/24/18 23:53 36 General Appearance: No Apparent Distress, Chronically ill Respiratory: Lungs Clear, No Respiratory Distress Cardiovascular: Regular Rate, Rhythm, Systolic Murmur Hospital Course Pt was admitted for acutely decompensated diastolic heart failure and hypoxia. Echo was done which revealed worsening of her known aortic stenosis. She was given lasix and her dyspnea resolved. Cardiology was consulted. She had an otherwise uneventful hospital stay. Discussions were had with patient and her daughters regarding her aortic stenosis and they have elected to follow up with Dr Guy (her primary commercial parts professional to discuss further options. She was comfortable with DC home to [facility]. I called and updated her PCP Dr Benton of this hospital stay. Labs (last 24 hrs) Patient resulted labs reviewed. Pending Labs Discussion & Recommendations Discharge Planning: >30 minutes discharge planning Discharge Home Medications: Active Scripts Active Reported Imodium A-D (Loperamide HCl) 2 Mg Tablet 2 Mg PO BID Zyrtec (Cetirizine HCl) 10 Mg Tablet 10 Mg PO DAILY Multivitamins (Multivitamin) 1 Each Tablet 1 Tab PO DAILY Sotalol (Sotalol HCl) 80 Mg Tablet 80 Mg PO BID Potassium Chloride 20 Meq Tablet.er 20 Meq PO HS Potassium Chloride 20 Meq Tab.er.prt 40 Meq PO DAILY TAKES 2 (20MEQ) TABLETS Omeprazole 40 Mg Capsule.dr 40 Mg PO DAILY Warfarin Sodium 3 Mg Tablet 4.5 Mg PO MOTUWETHFR TAKES 1 & 1/2 (3MG) TABLETS Warfarin Sodium 3 Mg Tablet 3 Mg PO SUSA Simvastatin 20 Mg Tablet 20 Mg PO HS Vitamin D-3 (Cholecalciferol (Vitamin D3)) 2,000 Unit Tablet 2,000 Unit PO DAILY Culturelle Capsule (L. Rhamnosus GG/Inulin) 1 Each Cap.sprink 1 Cap PO DAILY Instructions to patient/family Please see electronic discharge instructions given to patient. Clinical Quality Measures DVT/VTE Risk/Contraindication: Risk Factor Score Per Nursin RFS Level Per Nursing on Admit: 4+=Very High Problem Qualifiers (1) CHF exacerbation: Heart failure type: unspecified Qualified Codes: I50.9 - Heart failure, unspecified (2) Atrial fibrillation: Atrial fibrillation type: paroxysmal Qualified Codes: I48.0 - Paroxysmal atrial fibrillation MONIKA BIRMINGHAM MD Dec 26, 2018 12:15
--- NOTE | 2018-12-26 12:17 | Cardiology Progress Note ---
Cardiology SOAP Progress Note Subjective: Shortness of breath is better. Still complaining of cough. Objective: I&O/Vital Signs 12/26/18 12/26/18 12/26/18 12/26/18 01:31 04:00 07:00 07:17 Temp 89.6 Pulse 68 63 Resp 16 B/P (MAP) 113/55 (74) Pulse Ox 95 96 97 O2 Delivery Nasal Cannula Nasal Cannula Nasal Cannula O2 Flow Rate 2.00 2.00 2.00 12/26/18 12/26/18 08:00 08:15 Temp 97.6 Pulse 82 Resp 22 B/P (MAP) 125/60 (81) Pulse Ox 96 96 O2 Delivery Nasal Cannula Nasal Cannula O2 Flow Rate 4.00 2.00 12/26/18 00:00 Intake Total 1100 ml Output Total 4 ml Balance 1096 ml Weight (Pounds): 117 Weight (Ounces): 6.4 Weight (Calculated Kilograms): [id number] Constitutional: appears stated age, AAO x 3; No apparent distress; well- developed, well-nourished Respiratory: No accessory muscle use, No respiratory distress, No chest tender , No chest expansion is symmetric; chest is bilaterally symmetric; No lungs clear to percussion; lungs clear to auscultation; No crackles, No rhonchi, No rales, No stridor, No wheezing, No pleural rub, No other Cardiovascular: regular rate-rhythm, S1 and S2, systolic murmur Gastrointestional: No tender, No soft, No round, No distended, No pulsatile mass, No organomegaly, No guarding, No rebound, No tenderness, No hernia, No mass, No audible bowel sounds, No abnormal bowel sounds, No abdominal bruits, No spleenomegaly, No other Extremities: No normal range of motion, No non-tender, No normal inspection, No pedal edema, No calf tenderness, No normal capillary refill, No pelvis stable , No calf tenderness, No inflammation, No pedal edema, No slow capillary refill , No swelling, No other, No abrasion, No clubbing, No cyanosis, No ecchymosis, No laceration, No no lower extremity edema bilateral, No significant edema, No tenderness, No wound Neurologic/Psychiatric: no motor/sensory deficits, alert, normal mood/affect, oriented x 3, power is 5/5 both on sides Skin: No normal color, No warm/dry, No cyanosis, No cool, No diaphoresis, No damp, No ecchymosis, No jaundice, No mottled, No pallor, No rash, No tattoos/ piercings, No ulcerations, No rash on exposed areas, No ulcerations on exposed areas, No other Results/Procedures: Labs Laboratory Tests 12/26/18 05:10: White Blood Count 6.7, Red Blood Count 2.94L, Hemoglobin 9.0L, Hematocrit 27L, Mean Corpuscular Volume 93, Mean Corpuscular Hemoglobin 31, Mean Corpuscular Hemoglobin Concent 33, Red Cell Distribution Width 13.8, Platelet Count 255, Mean Platelet Volume 10.7H, Neutrophils (%) (Auto) 37L, Lymphocytes (%) (Auto) 39, Monocytes (%) (Auto) 17H, Eosinophils (%) (Auto) 7, Basophils (%) (Auto) 0, Neutrophils # (Auto) 2.5, Lymphocytes # (Auto) 2.6, Monocytes # (Auto) 1.2H, Eosinophils # (Auto) 0.4H, Basophils # (Auto) 0.0, Prothrombin Time 24.7H, INR Comment 2.2H, Sodium Level 133L, Potassium Level 3.0L, Chloride Level 97L, Carbon Dioxide Level 23, Anion Gap 13, Blood Urea Nitrogen 18, Creatinine 0.70, Estimat Glomerular Filtration Rate > 60, BUN/Creatinine Ratio 26, Glucose Level 97, Calcium Level 8.5 A/P: Assessment/Dx: Acute diastolic congestive heart failure, Moderate to severe aortic stenosis, Moderate aortic regurgitation, Moderate to severe mitral regurgitation, Moderate to severe pulmonary hypertension, Paroxysmal atrial fibrillation, Hypertension Plan: Echocardiogram done 12/25/2018 shows normal LV function with likely diastolic heart failure. IVC is dilated. PA pressure is 5560 mmHg. Moderate to severe aortic stenosis with mean gradient of 20 mmHg, aortic valve area by VTI 0.9 cm . Moderate aortic regurgitation. Moderate to severe mitral regurgitation with peak velocity of 5.4 m/s. Acute diastolic congestive heart failure, responded to IV Lasix. Moderate to severe aortic stenosis, with diastolic congestive heart failure and pulmonary hypertension. She may be a candidate to be evaluated for either surgical aortic valve replacement or TAVR. Moderate aortic regurgitation, associated with moderate to severe aortic stenosis. She may require some kind of valve intervention in the near future. Moderate to severe mitral regurgitation, heavily calcified mitral valve. Moderate to severe pulmonary hypertension, Paroxysmal atrial fibrillation, continue sotalol and warfarin. Hypertension. The patient follows with Dr. Guy, cardiology as an outpatient for a long time. I will defer further decision making as far as valve evaluation is concerned to him. Complicated patient as above. Thank you for your consultation. Please call me if you have any questions. Katie Shine MD, FACP, FACC, FSCAI, FHRS, CCDS Interventional Cardiology Cardiac Electrophysiology Vascular Medicine and Endovascular Interventions Sumaya SHINE MD Dec 26, 2018 12:17 pm
[2018-12-27] MEDS ORDERED: warFARin 3 MG (COUMADIN) TAB PO SCH (18:00)
== END 2018-12-26 13:45 | DRG 291 ==
LOC: 4TH 21:30
PROVIDERS: ADMIT Family Medicine; ATTEND Family Medicine
DX: I11.0 Hypertensive heart disease with heart failure (principal); I50.31 Acute diastolic (congestive) heart failure; I48.0 Paroxysmal atrial fibrillation; I08.0 Rheumatic disorders of both mitral and aortic valves; I27.20 Pulmonary hypertension, unspecified; E78.00 Pure hypercholesterolemia, unspecified; K21.9 Gastro-esophageal reflux disease without esophagitis; K52.9 Noninfective gastroenteritis and colitis, unspecified; Z79.01 Long term (current) use of anticoagulants
CPT/HCPCS: 36415; 80048; 85025; 85610; 93306; 94640; 94760

== ENCOUNTER 2019-02-07 12:30 | Inpatient (IN) | payer MEDICARE ==
[2019-02-07] VITALS (11 sets, daily range): BP systolic 103–167; BP diastolic 43–105
[~2019-02-07] VITALS: Ht 149.9 cm; Wt 50.3 kg
[~2019-02-07 12:30] MED LIST changes: +CHOL200059 PO; +LOPE-134 PO; +MULT1TAB69 PO; +POTA-51 PO; +POTA20TA15 PO; +SIMV20TA3 PO
--- NOTE | 2019-02-07 12:55 | ED Cardiac General ---
History of Present Illness General Chief Complaint: Cardiac/General Problems Stated Complaint: HISTORY OF AFIB/TACHYCARDIA/IRREGULAR HEART BEAT Nursing Triage Note: Family advise that the patient began not feeling well shortly after breakfast. They advise that the patient eats breakfast around [id number] each day. Patient c/o nausea and vomiting accompanied by shortness of breath and indigestion. History of Present Illness Date Seen by Provider: Feb 07, 2019 Time Seen by Provider: 12:30 Initial Comments 88-year-old female presents for nausea and vomiting 3 this morning, irregular heart rate with a history of atrial fib, and shortness of air. Family does not be believe she choked or aspirated while eating. She is extremely hard of hearing and does not have her hearing aids, they were thrown away and new ones have been ordered. Her daughters report that she ate breakfast and vomited shortly after that, she never complained of chest pain. She has a history of GERD. She is denying chest pain, presently and has mild nausea. She is on Coumadin and her last INR was 4.4, the dose has been adjusted. She resides at [facility]. Her family reports she became diaphoretic after vomiting but never fatigued. They have noticed over the last few days more shortness of air with exertion, assumed to be related to her CHF. She was able to transfer from wheelchair to bed with no assistance. She was admitted here on 12/24/18 for similar symptoms and evaluated by Dr. Shine. She normally sees Dr. Guy for cardiology and her PCP is Dr. Benton. She wears oxygen at night. Timing/Duration: 1-3 hours Severity: mild Activities at Onset: none Prior CP/Workup: echocardiography NTG SL HOTHOUSE WORKER: No ASA po HOTHOUSE WORKER: No Associated Systoms: Denies Symptoms; No Chest Pain, No Cough, No Diaphoresis, No Fever/Chills, No Headaches, No Loss of Appetite, No Malaise; Nausea/Vomiting ; No Rash; Shortness of Air; No Syncope, No Weakness Allergies and Home Medications Allergies Coded Allergies: No Known Drug Allergies (Unverified , 02/07/19) Home Medications Cetirizine HCl 10 Mg Tablet, 10 MG PO DAILY, (Reported) Cholecalciferol (Vitamin D3) 2,000 Unit Tablet, 2,000 UNIT PO DAILY, (Reported) L. Rhamnosus GG/Inulin 1 Each Cap.sprink, 1 CAP PO DAILY, (Reported) Loperamide HCl 2 Mg Tablet, 2 MG PO BID, (Reported) Multivitamin 1 Each Tablet, 1 TAB PO DAILY, (Reported) Omeprazole 40 Mg Capsule.dr, 40 MG PO DAILY, (Reported) Potassium Chloride 20 Meq Tab.er.prt, 40 MEQ PO DAILY, (Reported) TAKES 2 (20MEQ) TABLETS Potassium Chloride 20 Meq Tablet.er, 20 MEQ PO HS, (Reported) Simvastatin 20 Mg Tablet, 20 MG PO HS, (Reported) Sotalol HCl 80 Mg Tablet, 80 MG PO BID, (Reported) Warfarin Sodium 3 Mg Tablet, 3 MG PO SuSa, (Reported) Warfarin Sodium 3 Mg Tablet, 4.5 MG PO MoTuWeThFr, (Reported) TAKES 1 & 1/2 (3MG) TABLETS Patient Home Medication List Home Medication List Reviewed: Yes Review of Systems Review of Systems Constitutional: no symptoms reported, see HPI Respiratory: See HPI, SOA With Exertion Gastrointestinal: See HPI, Nausea, Vomiting All Other Systems Reviewed Negative Unless Noted: Yes Past Yvdrkza-Umncva-Pncrft Hx Past Med/Social Hx: Reviewed Nursing Past Med/Soc Hx Patient Social History Alcohol Use: Denies Use Recreational Drug Use: No Smoking Status: Never a Smoker 2nd Hand Smoke Exposure: No Recent Foreign Travel: No Contact w/Someone Who Travel: No Recent Infectious Disease Expo: No Recent Hopitalizations: No Immunizations Up To Date Tetanus Booster (TDap): Unknown PED Vaccines UTD: Yes Date of Pneumonia Vaccine: Aug 14, 2018 Date of Influenza Vaccine: Jul 14, 2018 Seasonal Allergies Seasonal Allergies: No Past Medical History Surgeries: Yes (CATARACTS) Eye Surgery Respiratory: No Currently Using CPAP: No Currently Using BIPAP: No Cardiac: Yes (AORTIC STENOSIS) Atrial Fibrillation, High Cholesterol, Hypertension, Valvular Heart Disease Neurological: No Reproductive Disorders: No Female Reproductive Disorders: Denies Sexually Transmitted Disease: No HIV/AIDS: No Genitourinary: No Gastrointestinal: Yes Gastroesophageal Reflux, Chronic Diarrhea Musculoskeletal: Yes (LEFT HIP REPLACEMENT ) Arthritis Endocrine: No HEENT: Yes Cataract Loss of Vision: Denies Hearing Impairment: Hard of Hearing, Bilateral Hearing Aide Cancer: No Psychosocial: No Anxiety Integumentary: No 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 6.4oz. 48.354220zx; 25.4 BMI Method:Stated General Appearance: No Apparent Distress, WD/WN HEENT: Normal ENT Inspection, Pharynx Normal Neck: Full Range of Motion, Normal Inspection, Non Tender, Supple Respiratory: Chest Non Tender, Lungs Clear, Normal Breath Sounds Cardiovascular: Regular Rate, Rhythm, No Edema, Normal Peripheral Pulses, Systolic Murmur Gastrointestinal: Normal Bowel Sounds, Non Tender, Soft; No Distended, No Guarding Neurologic/Psychiatric: Alert, No Motor/Sensory Deficits, Normal Mood/Affect Skin: Normal Color, Warm/Dry; No Diaphoresis, No Pallor Lymphatic: No Adenopathy Progress/Results/Core Measures Results/Orders Lab Results Laboratory Tests Test 02/07/19 12:56 Range/Units White Blood Count 10.4 4.3-11.0 10^3/uL Red Blood Count 2.98 L 4.35-5.85 10^6/uL Hemoglobin 9.0 L 11.5-16.0 G/DL Hematocrit 29 L 35-52 % Mean Corpuscular Volume 96 80-99 FL Mean Corpuscular Hemoglobin 30 25-34 PG Mean Corpuscular Hemoglobin Concent 31 L 32-36 G/DL Red Cell Distribution Width 16.3 H 10.0-14.5 % Platelet Count 400 130-400 10^3/uL Mean Platelet Volume 10.3 7.4-10.4 FL Neutrophils (%) (Auto) 71 42-75 % Lymphocytes (%) (Auto) 21 12-44 % Monocytes (%) (Auto) 7 0-12 % Eosinophils (%) (Auto) 1 0-10 % Basophils (%) (Auto) 0 0-10 % Neutrophils # (Auto) 7.4 1.8-7.8 X 10^3 Lymphocytes # (Auto) 2.1 1.0-4.0 X 10^3 Monocytes # (Auto) 0.7 0.0-1.0 X 10^3 Eosinophils # (Auto) 0.1 0.0-0.3 10^3/uL Basophils # (Auto) 0.0 0.0-0.1 10^3/uL Prothrombin Time 33.8 H 12.2-14.7 SEC INR Comment 3.2 H 0.8-1.4 Activated Partial Thromboplast Time 37 H 24-35 SEC Sodium Level 134 L 135-145 MMOL/L Potassium Level 5.7 H 3.6-5.0 MMOL/L Chloride Level 99 98-107 MMOL/L Carbon Dioxide Level 21 21-32 MMOL/L Anion Gap 14 5-14 MMOL/L Blood Urea Nitrogen 10 7-18 MG/DL Creatinine 0.73 0.60-1.30 MG/DL Estimat Glomerular Filtration Rate > 60 BUN/Creatinine Ratio 14 Glucose Level 145 H 70-105 MG/DL Calcium Level 9.2 8.5-10.1 MG/DL Corrected Calcium 9.7 8.5-10.1 MG/DL Magnesium Level 2.5 H 1.8-2.4 MG/DL Total Bilirubin 0.5 0.1-1.0 MG/DL Aspartate Amino Transf (AST/SGOT) 61 H 5-34 U/L Alanine Aminotransferase (ALT/SGPT) 21 0-55 U/L Alkaline Phosphatase 64 40-136 U/L Total Creatine Kinase 53 29-168 U/L Myoglobin 83.5 10.0-92.0 NG/ML Troponin I 0.096 H <0.028 NG/ML B-Type Natriuretic Peptide 810.1 H <100.0 PG/ML Total Protein 8.6 H 6.4-8.2 GM/DL Albumin 3.4 3.2-4.5 GM/DL My Orders Orders - REBECCA GROVE EMPLOYEE RELATIONS DIRECTOR Cbc With Automated Diff (02/07/19 12:41) Magnesium (02/07/19 12:41) Chest 1 View, Ap/Pa Only (02/07/19 12:41) Cardiac Profile 1 (02/07/19 12:41) Comprehensive Metabolic Panel (02/07/19 12:41) Myoglobin Serum (02/07/19 12:41) Protime With Inr (02/07/19 12:41) Partial Thromboplastin Time (02/07/19 12:41) O2 (02/07/19 12:41) Ed Iv/Invasive Line Start (02/07/19 12:41) Creatine Kinase (02/07/19 12:41) BNP (02/07/19 12:41) Ondansetron Injection (Zofran Injectio (02/07/19 13:00) Ua Culture If Indicated (02/07/19 12:47) Ed Iv/Invasive Line Start (02/07/19 13:28) Ns (Ivpb) (Sodium Chloride 0.9%) (02/07/19 13:28) Furosemide Injection (Lasix Injection) (02/07/19 14:00) Aspirin Chewable Tablet (Baby Aspirin Ch (02/07/19 14:00) Metoprolol Succinate (Xl) Tab (Toprol Xl (02/07/19 14:00) Medications Given in ED Current Medications Medications Dose Ordered Sig/Jinny Route Start Time Stop Time Status Last Admin Dose Admin Aspirin 81 mg ONCE ONCE PO 02/07/19 14:00 02/07/19 14:01 DC 02/07/19 14:07 81 MG Furosemide 20 mg ONCE ONCE IVP 02/07/19 14:00 02/07/19 14:01 DC 02/07/19 14:00 20 MG Metoprolol Succinate 25 mg ONCE ONCE PO 02/07/19 14:00 02/07/19 14:01 DC 02/07/19 14:07 25 MG Ondansetron HCl 4 mg ONCE ONCE IVP 02/07/19 13:00 02/07/19 13:01 DC 02/07/19 13:04 4 MG Sodium Chloride 250 ml @ 0 mls/hr Q0M ONCE IV 02/07/19 13:28 02/07/19 13:29 DC 02/07/19 13:35 0 MLS/HR Vital Signs/I&O 02/07/19 02/07/19 12:35 12:35 Temp 97.4 Pulse 88 Resp 20 B/P (MAP) 122/69 (86) Pulse Ox 98 97 O2 Delivery Nasal Cannula Nasal Cannula O2 Flow Rate 2.00 FiO2 100 Blood Pressure Mean: 86 Progress Progress Note : Time: 12:30 Progress Note Patient seen and evaluated, will obtain labs, EKG, and chest x-ray. Zofran 4 mg IV for nausea and vomiting. Spoke to patient and daughters, will treat the nausea, work up for CHF vs her a-fib. Will continue to monitor. Initial SaO2 on room air was 90%, applied oxygen at 2 L per nasal cannula, immediately raised SaO2 88-99% decreased O2 per nasal cannula to 1 L. Maintaining SaO2 95% or greater. EKG sinus rhythm, no ST elevation. 1310 Patient reports no further N/V, no SOA at rest, lungs CTA, and no chest pain. CBC wnl, awaiting remainder of labs. Chest x-ray bibasilar small infiltrate. 1345 Troponin 0.096 and BNP 810. Spoke to Dr. Gordon, agreed to admit patient, recommended Lasix 20 mg IV and consult Dr. Salinas. 1400 Dr. Salinas via telephone, recommended ASA 81 mg po, Toprol XL 25 mg daily. Will consult. 1410 Spoke with patient and her daughters. Explained lab results and need to admit and observe. The agreed with this plan of care, all questions answered. Admit to Cardiac Step Down. No requests at this time, HR has maintained 68-90, sinus rhythm. No further N/V and no new complaints. Initial ECG Impression Date: Feb 07, 2019 Initial ECG Impression Time: 12:37 Initial ECG Rate: 86 Initial ECG Rhythm: Normal Sinus Initial ECG Intervals: Normal Initial ECG Intervals OR 188, QRSD 78, QT 416, QTC 498, Bartlett P 74, QRS 48, T 37. Initial ECG Comparisson: No Previous ECG Available Comment EKG reviewed with Dr. Tucker, concurred with interpretation. Diagnostic Imaging Diagonstic Imaging: Xray Plain Films/CT/US/NM/MRI: chest Comments NAME: CLEO COBURN [facility] REC#: [id number] PT STATUS: REG ER : 1930 PHYSICIAN: REBECCA GROVE ADMIT DATE: 02/07/19/ER Draft Date of Exam:02/07/19 CHEST 1 VIEW, AP/PA ONLY INDICATION: Nausea and vomiting and dyspnea. COMPARISON: 06/20/2016. DISCUSSION: Single portable upright view of the chest was obtained. Cardiomegaly is new. Small left pleural effusion is new. Bibasilar infiltrates are new and could be seen with atelectasis, pneumonia, early failure. No pneumothorax or osseous abnormality. IMPRESSION: 1. New cardiomegaly, small left pleural effusion, and bibasilar infiltrates. Dictated on workstation # [id number] Dict: 02/07/19 1306 Trans: 02/07/19 1309 [facility] [id number] Interpreted by: MECHELLE KENDRICK MD Electronically signed by: Reviewed: Reviewed by Me Departure Impression Primary Impression: Afib Qualified Codes: I48.2 - Chronic atrial fibrillation Additional Impression: Dyspnea due to congestive heart failure Disposition: ADMITTED INPATIENT Condition: Improved Admissions Decision to Admit Reason: Admit from ER (General) Decision to Admit/Date: Feb 07, 2019 Time/Decision to Admit Time: 13:50 Departure-Patient Inst. Referrals: ANDREW BENTON DO (PCP/Family) Primary Care Physician Copy Copies To 1: ANDREW BENTON DO Copies To 2: OREN SALINAS MD FACP [facility] REBECCA GROVE EMPLOYEE RELATIONS DIRECTOR Feb 07, 2019 12:55
[2019-02-07] MEDS ORDERED: ONDANSETRON 4 MG/2 ML (SDV) Z0FRAN IVP ONE (13:00)
[2019-02-07 13:04] LABS: BASOPHILS % (AUTO) 0 % (0-10); EOSINOPHILS # (AUTO) 0.1 10^3/uL (0.0-0.3); EOSINOPHILS % (AUTO) 1 % (0-10); HEMATOCRIT 29 % (35-52); LYMPHOCYTES # (AUTO) 2.1 X 10^3 (1.0-4.0); LYMPHOCYTES % (AUTO) 21 % (12-44); MEAN CORPUSCULAR HEMOGLOBIN 30 PG (25-34); MEAN CORPUSCULAR HGB CONC 31 G/DL (32-36); MEAN CORPUSCULAR VOLUME 96 FL (80-99); MEAN PLATELET VOLUME 10.3 FL (7.4-10.4); MONOCYTES # (AUTO) 0.7 X 10^3 (0.0-1.0); MONOCYTES % (AUTO) 7 % (0-12); NEUTROPHILS # (AUTO) 7.4 X 10^3 (1.8-7.8); NEUTROPHILS % (AUTO) 71 % (42-75); PLATELET COUNT 400 10^3/uL (130-400); RED CELL DISTRIBUTION WIDTH 16.3 % (10.0-14.5); WHITE BLOOD COUNT 10.4 10^3/uL (4.3-11.0)
--- NOTE | 2019-02-07 13:10 | Diagnostic Imaging Report ---
INDICATION: Nausea and vomiting and dyspnea. COMPARISON: 06/20/2016. DISCUSSION: Single portable upright view of the chest was obtained. Cardiomegaly is new. Small left pleural effusion is new. Bibasilar infiltrates are new and could be seen with atelectasis, pneumonia, early failure. No pneumothorax or osseous abnormality. IMPRESSION: 1. New cardiomegaly, small left pleural effusion, and bibasilar infiltrates. Dictated by: Dictated on workstation # [id number]
[2019-02-07 13:15] LABS: INR 3.2 (0.8-1.4); PROTHROMBIN TIME PATIENT 33.8 SEC (12.2-14.7)
[2019-02-07 13:25] LABS: ALANINE AMINOTRANSFERASE 21 U/L (0-55); ALBUMIN 3.4 GM/DL (3.2-4.5); ALKALINE PHOSPHATASE 64 U/L (40-136); BILIRUBIN,TOTAL 0.5 MG/DL (0.1-1.0); BUN/CREATININE RATIO 14; CALCIUM 9.2 MG/DL (8.5-10.1); CARBON DIOXIDE 21 MMOL/L (21-32); CHLORIDE 99 MMOL/L (98-107); CREATINE KINASE 53 U/L (29-168); CREATININE SERUM 0.73 MG/DL (0.60-1.30); GFR ESTIMATED > 60; GLUCOSE 145 MG/DL (70-105); MAGNESIUM 2.5 MG/DL (1.8-2.4); POTASSIUM 5.7 MMOL/L (3.6-5.0); SODIUM 134 MMOL/L (135-145); TOTAL PROTEIN 8.6 GM/DL (6.4-8.2)
[2019-02-07] MEDS ORDERED: NS (IVPB) 250 ML IV ONE (13:28)
[2019-02-07] MEDS ORDERED: FUROSEMIDE 40 MG/4 ML INJ (LASIX) IVP ONE (14:00)
[2019-02-07] MEDS ORDERED: ASPIRIN 81 MG CHEW (CHILDREN'S ASA) PO ONE (14:00)
[2019-02-07 14:20] LABS: BILIRUBIN,URINE NEGATIVE (NEGATIVE); CLARITY,URINE CLEAR; COLOR,URINE YELLOW; GLUCOSE, URINE (UA) NEGATIVE (NEGATIVE); KETONES,URINE NEGATIVE (NEGATIVE); LEUKOCYTE ESTERASE ,URINE NEGATIVE (NEGATIVE); NITRITE,URINE NEGATIVE (NEGATIVE); PH,URINE 5 (5-9); PROTEIN,URINE 2+ (NEGATIVE); UROBILINOGEN,URINE NORMAL (NORMAL)
[2019-02-07 14:40] LABS: BACTERIA,URINE NEGATIVE /HPF; WBC,URINE 0-2 /HPF
[2019-02-07] MEDS ORDERED: ACETAMINOPHEN 325 MG TABLET PO PRN (14:45)
[2019-02-07] MEDS ORDERED: CATHETER FLUSH 10 ML SYR IV PRN (15:00)
[2019-02-07] MEDS ORDERED: ONDANSETRON 4 MG/2 ML (SDV) Z0FRAN IV PRN (15:00)
[2019-02-07] MEDS ORDERED: RT-ALBUTEROL/IPRATROPIUM 3 ML (DUONEB) VIAL INH PRN (17:00)
--- NOTE | 2019-02-07 17:42 | Consultation-Cardiology ---
HPI-Cardiology Cardiology Consultation: Date of Consultation 02/07/19 Time Seen by a Provider: 17:40 Date of Admission Attending Physician Sea Gordon MD Admitting Physician Haroldo Benton DO Consulting Physician OREN ANSARI MD, MA, FACP, FACC, [facility], CCDS Physician requesting consult: Dr Gordon HPI: Chief Complaint: CC: Nausea and vomiting HPI 88 yo resident of a local assisted-living facility who presented with nausea and vomiting and vague abdominal discomfort that persisted for an hour or two and has resolved. No cp or palp or syncope. No focal weakness. Chronic back and joint pains Review of Systems-Cardiology Review of Systems Constitutional: malaise; No weight loss, No weight gain Eyes: No vision change Ears/Nose/Throat: chronic hearing loss; No ear discharge, No nasal drainage, No ulcerations Respiratory: As described under HPI Cardiovascular: As described under HPI Gastrointestinal: As described under HPI Genitourinary: No dysuria, No hematuria, No urine frequency changes Musculoskeletal: As describe under HPI Skin: No rash, No ulcerations Psychiatric/Neurological: No seizure, No focal weakness, No syncope Hematologic: No bleeding abnormalities All Other Systems Reviewed Negative Unless Noted: Yes AZF-Kaupxv-Hdkhay Hx Patient Social History Alcohol Use: Denies Use Recreational Drug Use: No Smoking Status: Never a Smoker 2nd Hand Smoke Exposure: No Recent Foreign Travel: No Recent Infectious Disease Expo: No Immunizations Up To Date Tetanus Booster (TDap): Unknown Date of Pneumonia Vaccine: Feb 07, 2019 Date of Influenza Vaccine: Jul 14, 2018 Past Medical History PMH As described under Assessment. Family Medical History Family History: Alcoholism 19 FATHER Arthritis 19 MOTHER FH: breast cancer in first degree relative G8 SISTER FH: cirrhosis G8 BROTHER Allergies and Home Medications Allergies Coded Allergies: No Known Drug Allergies (Unverified , 02/07/19) Home Medications Cetirizine HCl 10 Mg Tablet, 10 MG PO DAILY, (Reported) Cholecalciferol (Vitamin D3) 2,000 Unit Tablet, 2,000 UNIT PO DAILY, (Reported) L. Rhamnosus GG/Inulin 1 Each Cap.sprink, 1 CAP PO DAILY, (Reported) Loperamide HCl 2 Mg Tablet, 2 MG PO BID, (Reported) Multivitamin 1 Each Tablet, 1 TAB PO DAILY, (Reported) Omeprazole 40 Mg Capsule.dr, 40 MG PO DAILY, (Reported) Potassium Chloride 20 Meq Tab.er.prt, 40 MEQ PO DAILY, (Reported) TAKES 2 (20MEQ) TABLETS Potassium Chloride 20 Meq Tablet.er, 20 MEQ PO HS, (Reported) Simvastatin 20 Mg Tablet, 20 MG PO HS, (Reported) Sotalol HCl 80 Mg Tablet, 80 MG PO BID, (Reported) Warfarin Sodium 3 Mg Tablet, 3 MG PO SuSa, (Reported) Warfarin Sodium 3 Mg Tablet, 4.5 MG PO MoTuWeThFr, (Reported) TAKES 1 & 1/2 (3MG) TABLETS Patient Home Medication List Home Medication List Reviewed: Yes Physical Exam-Cardiology Physical Exam Vital Signs/I&O 02/07/19 02/07/19 02/07/19 02/07/19 12:35 12:35 14:30 14:45 Temp 97.4 Pulse 88 64 Resp 20 18 B/P (MAP) 122/69 (86) 154/66 (95) Pulse Ox 98 97 98 O2 Delivery Nasal Cannula Nasal Cannula Nasal Cannula Nasal Cannula O2 Flow Rate 2.00 2.00 2.00 FiO2 100 02/07/19 02/07/19 02/07/19 02/07/19 14:45 14:45 15:00 15:15 Pulse 86 84 96 79 Resp 35 27 15 B/P (MAP) 167/105 (125) 135/70 (91) 135/102 (113) Pulse Ox 96 91 93 O2 Delivery Nasal Cannula Nasal Cannula Nasal Cannula O2 Flow Rate 2.00 2.00 2.00 02/07/19 02/07/19 02/07/19 02/07/19 15:30 15:32 15:45 15:50 Temp 97.6 Pulse 76 89 88 Resp 15 28 B/P (MAP) 145/74 (97) 124/65 (84) Pulse Ox 93 96 98 O2 Delivery Nasal Cannula Nasal Cannula O2 Flow Rate 2.00 2.00 FiO2 28 02/07/19 02/07/19 02/07/19 16:00 16:14 16:33 Pulse 62 71 Resp 40 25 B/P (MAP) 121/99 (106) 144/80 (101) Pulse Ox 95 92 O2 Delivery Nasal Cannula Nasal Cannula Nasal Cannula O2 Flow Rate 2.00 1.00 2.00 Capillary Refill : Less Than 3 Seconds Data Review Labs Laboratory Tests 02/07/19 12:56: White Blood Count 10.4, Red Blood Count 2.98L, Hemoglobin 9.0L, Hematocrit 29L, Mean Corpuscular Volume 96, Mean Corpuscular Hemoglobin 30, Mean Corpuscular Hemoglobin Concent 31L, Red Cell Distribution Width 16.3H, Platelet Count 400, Mean Platelet Volume 10.3, Neutrophils (%) (Auto) 71, Lymphocytes (%) (Auto) 21 , Monocytes (%) (Auto) 7, Eosinophils (%) (Auto) 1, Basophils (%) (Auto) 0, Neutrophils # (Auto) 7.4, Lymphocytes # (Auto) 2.1, Monocytes # (Auto) 0.7, Eosinophils # (Auto) 0.1, Basophils # (Auto) 0.0, Prothrombin Time 33.8H, INR Comment 3.2H, Activated Partial Thromboplast Time 37H, Sodium Level 134L, Potassium Level 5.7H, Chloride Level 99, Carbon Dioxide Level 21, Anion Gap 14, Blood Urea Nitrogen 10, Creatinine 0.73, Estimat Glomerular Filtration Rate > 60 , BUN/Creatinine Ratio 14, Glucose Level 145H, Calcium Level 9.2, Corrected Calcium 9.7, Magnesium Level 2.5H, Total Bilirubin 0.5, Aspartate Amino Transf ( AST/SGOT) 61H, Alanine Aminotransferase (ALT/SGPT) 21, Alkaline Phosphatase 64, Total Creatine Kinase 53, Myoglobin 83.5, Troponin I 0.096H, B-Type Natriuretic Peptide 810.1H, Total Protein 8.6H, Albumin 3.4 02/07/19 14:13: Urine Color YELLOW, Urine Clarity CLEAR, Urine pH 5, Urine Specific [place] 1.015L, Urine Protein 2+H, Urine Glucose (UA) NEGATIVE, Urine Ketones NEGATIVE, Urine Nitrite NEGATIVE, Urine Bilirubin NEGATIVE, Urine Urobilinogen NORMAL, Urine Leukocyte Esterase NEGATIVE, Urine RBC (Auto) 2+H, Urine RBC 2-5H, Urine WBC 0-2, Urine Squamous Epithelial Cells NONE, Urine Crystals NONE, Urine Bacteria NEGATIVE, Urine Casts PRESENT, Urine Hyaline Casts 2-5H, Urine Mucus NEGATIVE, Urine Culture Indicated NO 02/07/19 16:40: Troponin I 0.343*H A/P-Cardiology Assessment/Admission Diagnosis Ac VA: unclear if this is type 1 or type 2 Acute diastolic congestive heart failure Valvular heart disease and pulmonary hypertension (see below) Echo of 12/25/2018 shows normal LV function with likely diastolic heart failure. IVC is dilated. PA pressure is 5560 mmHg. Moderate to severe aortic stenosis with mean gradient of 20 mmHg, aortic valve area by VTI 0.9 cm. Moderate aortic regurgitation. Moderate to severe mitral regurgitation with peak velocity of 5.4 m/s. Paroxysmal atrial fibrillation, treated with sotalol and warfarin Hypertension Mild to mod hyperkalemia w/o renal failure or acidosis Discussion and Recomendations * Add ASA and bb * INR currently supra-therapeutic. Resume warfarin when INR in therapeutic range * Furosemide. Hold supple K (that she takes at home) * Monitor labs * Eval troponin trend to decide on card cath * I had a long and detailed discussion with her fam on treatment options, including pros and cons of invasive eval and treatment. They're considering Clinical Quality Measures AMI/AHF: ASA po Prior to arrival: No DVT/VTE Risk/Contraindication: Risk Factor Score Per Nursin RFS Level Per Nursing on Admit: 4+=Very High OREN ANSARI MD FACP FAC CCDS Feb 07, 2019 17:42
[2019-02-07] MEDS: RT-ALBUTEROL/IPRATROPIUM 3 ML (DUONEB) VIAL INH SCH (19:25)
[2019-02-07] MEDS: SOTALOL 80 MG (BETAPACE) TAB PO SCH (21:34)
[2019-02-07] MEDS: CATHETER FLUSH 10 ML SYR IV SCH (22:17)
[2019-02-08] VITALS (7 sets, daily range): BP systolic 136–155; BP diastolic 57–90
[2019-02-08 03:46] LABS: BASOPHILS % (AUTO) 0 % (0-10); EOSINOPHILS # (AUTO) 0.3 10^3/uL (0.0-0.3); EOSINOPHILS % (AUTO) 4 % (0-10); HEMATOCRIT 28 % (35-52); HEMOGLOBIN 8.7 G/DL (11.5-16.0); LYMPHOCYTES # (AUTO) 2.9 X 10^3 (1.0-4.0); LYMPHOCYTES % (AUTO) 38 % (12-44); MEAN CORPUSCULAR HEMOGLOBIN 30 PG (25-34); MEAN CORPUSCULAR HGB CONC 32 G/DL (32-36); MEAN CORPUSCULAR VOLUME 96 FL (80-99); MEAN PLATELET VOLUME 9.5 FL (7.4-10.4); MONOCYTES # (AUTO) 0.8 X 10^3 (0.0-1.0); MONOCYTES % (AUTO) 10 % (0-12); NEUTROPHILS # (AUTO) 3.6 X 10^3 (1.8-7.8); NEUTROPHILS % (AUTO) 47 % (42-75); PLATELET COUNT 332 10^3/uL (130-400); RED CELL DISTRIBUTION WIDTH 15.9 % (10.0-14.5); WHITE BLOOD COUNT 7.6 10^3/uL (4.3-11.0)
[2019-02-08 04:05] LABS: ALANINE AMINOTRANSFERASE 16 U/L (0-55); ALBUMIN 3.1 GM/DL (3.2-4.5); ALKALINE PHOSPHATASE 64 U/L (40-136); BILIRUBIN,TOTAL 0.3 MG/DL (0.1-1.0); BUN/CREATININE RATIO 11; CARBON DIOXIDE 25 MMOL/L (21-32); CHLORIDE 99 MMOL/L (98-107); CREATININE SERUM 0.66 MG/DL (0.60-1.30); GFR ESTIMATED > 60; GLUCOSE 99 MG/DL (70-105); POTASSIUM 3.1 MMOL/L (3.6-5.0); SODIUM 137 MMOL/L (135-145); TOTAL PROTEIN 7.2 GM/DL (6.4-8.2)
[2019-02-08] MEDS: CATHETER FLUSH 10 ML SYR IV SCH ×3 (06:41→20:15)
[2019-02-08] MEDS: RT-ALBUTEROL/IPRATROPIUM 3 ML (DUONEB) VIAL INH SCH ×4 (07:03→18:58)
[2019-02-08] MEDS: ASPIRIN 81 MG CHEW (CHILDREN'S ASA) PO SCH (09:31)
[2019-02-08] MEDS: SOTALOL 80 MG (BETAPACE) TAB PO SCH ×2 (09:31→20:14)
--- NOTE | 2019-02-08 10:40 | Diagnostic Imaging Report ---
INDICATION: Congestive heart failure. COMPARISON: Compared 02/07/2019. FINDINGS: The heart is enlarged but decreased from prior. Small pleural effusions decreased. Interstitial edema decreased if not resolved. No adverse change. IMPRESSION: Resolving sequelae of congestive failure with no adverse development. Dictated by: Dictated on workstation # [id number]
--- NOTE | 2019-02-08 12:11 | NUR ---
NOTE THAT THIS PT IS BEING TRANSFERRED TO 4TH FLOOR -- TELEMETRY BOX APPLIED --
--- NOTE | 2019-02-08 12:14 | Progress Note-Cardiology ---
Cardiology SOAP Progress Note Subjective: No cp or palp or syncope Gen malaise present Chronic mod exertional shortness of breath Objective: I&O/Vital Signs 02/08/19 02/08/19 02/08/19 02/08/19 01:00 04:00 04:00 07:00 Pulse 62 56 64 Resp 13 B/P (MAP) 140/64 (89) Pulse Ox 97 O2 Delivery Nasal Cannula Nasal Cannula O2 Flow Rate 2.00 2.00 02/08/19 02/08/19 02/08/19 02/08/19 07:03 08:00 08:00 09:00 Temp 98.9 Pulse Ox 96 O2 Delivery Nasal Cannula Nasal Cannula Nasal Cannula O2 Flow Rate 2.00 2.00 2.00 02/08/19 02/08/19 02/08/19 10:01 10:25 11:28 Temp 98.9 98.4 Pulse 65 Resp 13 B/P (MAP) 152/66 (94) Pulse Ox 91 93 O2 Delivery Nasal Cannula Nasal Cannula O2 Flow Rate 0.50 0.50 02/08/19 00:00 Intake Total 120 ml Output Total 700 ml Balance -580 ml Weight (Pounds): 107 Weight (Ounces): 0.0 Weight (Calculated Kilograms): 48.017905 Constitutional: AAO x 3, well-developed, other (frail appearing; hard of hearing) Respiratory: No accessory muscle use; other (good bilat air entry; some basal crackles) Cardiovascular: regular rate-rhythm, S1 and S2, systolic murmur (3/6 MSM) Gastrointestional: No tender; soft; No guarding, No rebound; audible bowel sounds Extremities: No clubbing, No cyanosis, No significant edema Neurologic/Psychiatric: oriented x 3, grossly intact Skin: No rash on exposed areas, No ulcerations on exposed areas Results/Procedures: Labs Laboratory Tests 02/07/19 12:56: White Blood Count 10.4, Red Blood Count 2.98L, Hemoglobin 9.0L, Hematocrit 29L, Mean Corpuscular Volume 96, Mean Corpuscular Hemoglobin 30, Mean Corpuscular Hemoglobin Concent 31L, Red Cell Distribution Width 16.3H, Platelet Count 400, Mean Platelet Volume 10.3, Neutrophils (%) (Auto) 71, Lymphocytes (%) (Auto) 21 , Monocytes (%) (Auto) 7, Eosinophils (%) (Auto) 1, Basophils (%) (Auto) 0, Neutrophils # (Auto) 7.4, Lymphocytes # (Auto) 2.1, Monocytes # (Auto) 0.7, Eosinophils # (Auto) 0.1, Basophils # (Auto) 0.0, Prothrombin Time 33.8H, INR Comment 3.2H, Activated Partial Thromboplast Time 37H, Sodium Level 134L, Potassium Level 5.7H, Chloride Level 99, Carbon Dioxide Level 21, Anion Gap 14, Blood Urea Nitrogen 10, Creatinine 0.73, Estimat Glomerular Filtration Rate > 60 , BUN/Creatinine Ratio 14, Glucose Level 145H, Calcium Level 9.2, Corrected Calcium 9.7, Magnesium Level 2.5H, Total Bilirubin 0.5, Aspartate Amino Transf ( AST/SGOT) 61H, Alanine Aminotransferase (ALT/SGPT) 21, Alkaline Phosphatase 64, Total Creatine Kinase 53, Myoglobin 83.5, Troponin I 0.096H, B-Type Natriuretic Peptide 810.1H, Total Protein 8.6H, Albumin 3.4 02/07/19 14:13: Urine Color YELLOW, Urine Clarity CLEAR, Urine pH 5, Urine Specific [place] 1.015L, Urine Protein 2+H, Urine Glucose (UA) NEGATIVE, Urine Ketones NEGATIVE, Urine Nitrite NEGATIVE, Urine Bilirubin NEGATIVE, Urine Urobilinogen NORMAL, Urine Leukocyte Esterase NEGATIVE, Urine RBC (Auto) 2+H, Urine RBC 2-5H, Urine WBC 0-2, Urine Squamous Epithelial Cells NONE, Urine Crystals NONE, Urine Bacteria NEGATIVE, Urine Casts PRESENT, Urine Hyaline Casts 2-5H, Urine Mucus NEGATIVE, Urine Culture Indicated NO 02/07/19 16:40: Troponin I 0.343*H 02/08/19 03:35: White Blood Count 7.6, Red Blood Count 2.88L, Hemoglobin 8.7L, Hematocrit 28L, Mean Corpuscular Volume 96, Mean Corpuscular Hemoglobin 30, Mean Corpuscular Hemoglobin Concent 32, Red Cell Distribution Width 15.9H, Platelet Count 332, Mean Platelet Volume 9.5, Neutrophils (%) (Auto) 47, Lymphocytes (%) (Auto) 38, Monocytes (%) (Auto) 10, Eosinophils (%) (Auto) 4, Basophils (%) (Auto) 0, Neutrophils # (Auto) 3.6, Lymphocytes # (Auto) 2.9, Monocytes # (Auto) 0.8, Eosinophils # (Auto) 0.3, Basophils # (Auto) 0.0, Sodium Level 137, Potassium Level 3.1L, Chloride Level 99, Carbon Dioxide Level 25, Anion Gap 13, Blood Urea Nitrogen 7, Creatinine 0.66, Estimat Glomerular Filtration Rate > 60, BUN/ Creatinine Ratio 11, Glucose Level 99, Calcium Level 9.0, Corrected Calcium 9.7 , Total Bilirubin 0.3, Aspartate Amino Transf (AST/SGOT) 27, Alanine Aminotransferase (ALT/SGPT) 16, Alkaline Phosphatase 64, Total Protein 7.2, Albumin 3.1L, Thyroid Stimulating Hormone (TSH) 2.75 Laboratory Tests 02/07/19 12:56 02/08/19 03:35 A/P: Assessment: Ac PA: unclear if this is type 1 or type 2 Acute diastolic congestive heart failure Valvular heart disease and pulmonary hypertension (see below) Echo of 12/25/2018 shows normal LV function with likely diastolic heart failure. IVC is dilated. PA pressure is 5560 mmHg. Moderate to severe aortic stenosis with mean gradient of 20 mmHg, aortic valve area by VTI 0.9 cm. Moderate aortic regurgitation. Moderate to severe mitral regurgitation with peak velocity of 5.4 m/s. Paroxysmal atrial fibrillation, treated with sotalol and warfarin Hypertension Hypokalemia, likely due to diuretics Plan: * I again had a detailed discussion with her and one of her daughters regarding treatment options. They seem still leaning towards conservative-only options. Need a little more time to think * Add oral diuretic and supple K * Add warfarin back if INR now back to therapeutic range * Check for stool ob (given her anemia) * Not ready for d/c Clinical Quality Measures AMI/AHF: ASA po Prior to arrival: OREN Caal MD [facility] CCDS Feb 08, 2019 12:14
[2019-02-08] MEDS ORDERED: PANTOPRAZOLE 40 MG (PROTONIX) VIAL IV NR (12:15)
[2019-02-08] MEDS ORDERED: KCL 20 MEQ TAB (K-DUR) PO NR (12:15)
[2019-02-08] MEDS ORDERED: FUROSEMIDE 20 MG (LASIX) TAB PO NR (12:15)
--- NOTE | 2019-02-08 12:20 | NUR ---
Assumed care at this time. Agree with previous RN's assessment.
--- NOTE | 2019-02-08 12:21 | History & Physical-Hospitalist ---
History of Present Illness HPI/Chief Complaint The patient is an 88-year-old white female resident of long-term care facility who became nauseated sometime after eating breakfast. She has a history of paroxysmal atrial fibrillation and the nursing staff per the daughter's report noted that her heart rate was irregular and fast in the 130 range. Patient felt a little short of breath but denied chest discomfort or abdominal pain. She vomited without evidence for aspiration according to the daughter there was no evidence for coffee ground emesis or bright red blood per rectum and she denied melena. She's had chronic intermittent diarrhea for many years and the daughter believes that there is an IBS component to it. Past endoscopies have been unrevealing. Her diarrhea is associated with fecal incontinence and has been so for a number of years. She is on Coumadin anticoagulation and had an elevated INR a week ago roughly the daughter believes around 4.1 without any bleeding problems. Her Coumadin was adjusted downward and was 3.2 done in the emergency room today. I do not believe that she has a known past history of coronary artery disease but does have a history of moderate aortic stenosis estimated valve area 0.9 with LVH and history of chronic diastolic dysfunction due to hypertension and aortic stenosis. She also has a history of pulmonary hypertension with echo last year revealing of estimated pulmonary pressure 50- 55 mmHg range of unclear etiology to this examiner. Date Seen 02/08/19 Time Seen by a Provider: 09:30 Attending Physician Antonio Gordon MD PCP Haroldo Benton DO Referring Physician Date of Admission Feb 07, 2019 at 14:00 Home Medications & Allergies Home Medications Reviewed patient Home Medication Reconciliation performed by pharmacy medication reconciliations orthotic and prosthetic technician and/or nursing. Patients Allergies have been reviewed. Allergies Allergies Coded Allergies No Known Drug Allergies (Unverified02/07/19) Past Xjgucca-Tamgdx-Vzaoqn Hx Past Med/Social Hx: Reviewed Nursing Past Med/Soc Hx, Reviewed and Corrections made Patient Social History Alcohol Use: Denies Use Recreational Drug Use: No Smoking Status: Never a Smoker 2nd Hand Smoke Exposure: No Recent Foreign Travel: No Contact w/other who traveled: No Recent Hopitalizations: No Recent Infectious Disease Expo: No Immunizations Up To Date Tetanus Booster (TDap): Unknown Pediatric: Yes Date of Pneumonia Vaccine: Feb 07, 2019 Date of Influenza Vaccine: Jul 14, 2018 Seasonal Allergies Seasonal Allergies: No Past Medical History Surgeries: Eye Surgery Currently Using CPAP: No Currently Using BIPAP: No Cardiac: Atrial Fibrillation, High Cholesterol, Hypertension, Valvular Heart Disease Reproductive: No Sexually Transmitted Disease: No HIV/AIDS: No Female Reproductive Disorders: Denies Gastrointestinal: Gastroesophageal Reflux, Chronic Diarrhea Musculoskeletal: Arthritis HEENT: Cataract Loss of Vision: Denies Hearing Impairment: Hard of Hearing, Bilateral Hearing Aide Psychosocial: Anxiety 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) Adverse Reaction to Blood Wright: No Family History Alcoholism 19 FATHER Arthritis 19 MOTHER FH: breast cancer in first degree relative G8 SISTER FH: cirrhosis G8 BROTHER Review of Systems Constitutional: see HPI, chills, diaphoresis, dizziness, fever, malaise, weakness, weight gain, weight loss Respiratory: No cough; dyspnea on exertion; No hemoptysis, No orthopnea, No phlegm; short of breath; No stridor, No wheezing Cardiovascular: No chest pain, No edema, No Hx of Intervention, No palpitations , No syncope, No vascular heart diseas Gastrointestinal: see HPI Physical Exam Physical Exam Vital Signs Vital Signs - First Documented 02/07/19 12:35 Temp 97.4 Pulse 88 Resp 20 B/P (MAP) 122/69 (86) Pulse Ox 98 O2 Delivery Nasal Cannula O2 Flow Rate 2.00 FiO2 100 Capillary Refill : Less Than 3 Seconds Height, Weight, BMI Height: 4'11.00" Weight: 107lbs. 0.0oz. 48.611986lr; 21.6 BMI Method:Stated General Appearance: No Apparent Distress, Chronically ill HEENT: PERRL/EOMI Neck: Full Range of Motion, Normal Inspection, Non Tender Respiratory: Chest Non Tender, No Accessory Muscle Use, No Respiratory Distress , Other (Diminished breath sounds in both bases with a few scattered rales no rhonchi or wheezing are noted.) Cardiovascular: Regular Rate, Rhythm, No Edema, No Gallop, No JVD, Normal Peripheral Pulses, Other (2 to 3/6 systolic ejection murmur heard best over the aortic outflow tract there is blunting of S2 without an overt diastolic murmur being appreciated) Gastrointestinal: Normal Bowel Sounds, No Organomegaly, No Pulsatile Mass, Non Tender, Soft Extremity: Normal Capillary Refill, Normal Inspection, Normal Range of Motion, Non Tender, No Calf Tenderness, No Pedal Edema Neurologic/Psychiatric: Alert, Oriented x3 Results Results/Procedures Labs Laboratory Tests 02/07/19 12:56 02/08/19 03:35 Patient resulted labs reviewed. Assessment/Plan Admission Diagnosis A/P 1. Strongly suspect an episode of paroxysmal atrial fibrillation with rapid ventricular response which terminated prior to arrival. 2. Acute exacerbation of diastolic heart failure secondary to number 1 and underlying hypertensive heart disease. 3. Troponin elevation favor type II RI but cannot rule out acute coronary syndrome defer to Dr. ANSARI current EKG reveals findings compatible with LVH without repolarization change. There is a QS configuration in V1 and V2 no other significant abnormalities are noted. No acute ischemic ECG changes noted. 4. Aortic stenosis moderate severity reported on past echo. 5. Findings suggesting moderate pulmonary artery hypertension on past echo unclear etiology chest x-ray suggests senile COPD patient reports no past history of smoking or significant secondhand exposure. 6. Proximal atrial fibrillation recent supratherapeutic INR moderating would likely continue her current reduced dose but will defer to Dr. ANSARI. 7. Current anticoagulation suffices for DVT prophylaxis. Admission Status: Inpatient Order (span 2 midnights) Reason for Inpatient Admission: See admission diagnosis. Clinical Quality Measures AMI/AHF: ASA po Prior to arrival: No DVT/VTE Risk/Contraindication: Risk Factor Score Per Nursin RFS Level Per Nursing on Admit: 4+=Very High ANTONIO GORDON MD Feb 08, 2019 12:21
--- NOTE | 2019-02-08 12:25 | NUR ---
Patient to 4TH MED SURG ROOM 416 from [facility]12-1 per W/C accompanied by ICU staff. Patient and family notified and understand transfer. Personal belongings with patient. Report received from SERG TO LAURA MASCORRO. THIS RN CALLED AND LEFT MESSAGE FOR DR BUSTOS TO PLEASE ADDRESS THE HOME MEDS -- HE CALLED BACK AND SAID OK -- ADVISED LAURA MASCORRO
[2019-02-08 12:30] LABS: BASOPHILS % (AUTO) 0 % (0-10); EOSINOPHILS # (AUTO) 0.3 10^3/uL (0.0-0.3); EOSINOPHILS % (AUTO) 3 % (0-10); HEMATOCRIT 28 % (35-52); HEMOGLOBIN 8.9 G/DL (11.5-16.0); LYMPHOCYTES # (AUTO) 2.6 X 10^3 (1.0-4.0); LYMPHOCYTES % (AUTO) 31 % (12-44); MEAN CORPUSCULAR HEMOGLOBIN 31 PG (25-34); MEAN CORPUSCULAR HGB CONC 32 G/DL (32-36); MEAN CORPUSCULAR VOLUME 97 FL (80-99); MEAN PLATELET VOLUME 10.2 FL (7.4-10.4); MONOCYTES # (AUTO) 0.9 X 10^3 (0.0-1.0); MONOCYTES % (AUTO) 11 % (0-12); NEUTROPHILS # (AUTO) 4.6 X 10^3 (1.8-7.8); NEUTROPHILS % (AUTO) 55 % (42-75); PLATELET COUNT 324 10^3/uL (130-400); RED CELL DISTRIBUTION WIDTH 16.2 % (10.0-14.5); WHITE BLOOD COUNT 8.4 10^3/uL (4.3-11.0)
[2019-02-08 12:41] LABS: INR 2.8 (0.8-1.4); PROTHROMBIN TIME PATIENT 30.8 SEC (12.2-14.7)
[2019-02-08 12:48] LABS: BUN/CREATININE RATIO 10; CALCIUM 9.1 MG/DL (8.5-10.1); CARBON DIOXIDE 24 MMOL/L (21-32); CHLORIDE 99 MMOL/L (98-107); CREATININE SERUM 0.79 MG/DL (0.60-1.30); GFR ESTIMATED > 60; GLUCOSE 118 MG/DL (70-105); MAGNESIUM 1.4 MG/DL (1.8-2.4); POTASSIUM 3.3 MMOL/L (3.6-5.0); SODIUM 137 MMOL/L (135-145)
--- NOTE | 2019-02-08 15:30 | NUR ---
1515- RN entered room on hearing pt call for help. Pt found sitting on the floor with her back leaning on the chair. Pt assessed for injury. 1516- Aides Justa and Odalis to bedside, pt helped off floor and to the bathroom. Pt stated she had to go to the bathroom for a sudden BM and forgot to use the call light. Pt had been using call light appropriately since her arrival from ICU at 1220. 1520- Notified Dr. Gordon. No injuries or deficits noted post fall. No new orders at this time. Will continue to monitor.
[2019-02-08] MEDS ORDERED: warFARin 3 MG (COUMADIN) TAB PO SCH (18:00)
[2019-02-08] MEDS ORDERED: DONEPEZIL 5 MG (ARICEPT) TAB ONE (20:03)
[2019-02-08] MEDS: LOPERAMIDE 2 MG (IMODIUM) CAP PO SCH (20:14)
[2019-02-08] MEDS ORDERED: FAMOTIDINE 20 MG (PEPCID) TABLET PO SCH (21:00)
[2019-02-08] MEDS ORDERED: NON-FORMULARY MEDICATION 1 EA EA (Loperamide HCl (Imodium A-D) 2 MG) PO SCH (21:00)
[2019-02-08] MEDS ORDERED: DONEPEZIL 5 MG (ARICEPT) TAB PO SCH (21:00)
[2019-02-08] MEDS ORDERED: SIMvastatin 20 MG (ZOCOR) TAB PO SCH (21:00)
[2019-02-09 04:04] VITALS: BP 162/70
[2019-02-09] MEDS: CATHETER FLUSH 10 ML SYR IV SCH (06:10)
[2019-02-09] MEDS ORDERED: MULTIVIT W/MINERALS TAB (THERAGRAN M) PO SCH (07:00)
[2019-02-09] MEDS ORDERED: KCL 20 MEQ TAB (K-DUR) PO SCH (07:00)
[2019-02-09] MEDS: RT-ALBUTEROL/IPRATROPIUM 3 ML (DUONEB) VIAL INH SCH ×2 (07:15→11:56)
[2019-02-09 08:00] VITALS: BP 167/67
[2019-02-09] MEDS: LOPERAMIDE 2 MG (IMODIUM) CAP PO SCH (08:15)
[2019-02-09] MEDS: ASPIRIN 81 MG CHEW (CHILDREN'S ASA) PO SCH (08:16)
[2019-02-09] MEDS: SOTALOL 80 MG (BETAPACE) TAB PO SCH (08:19)
[2019-02-09] MEDS ORDERED: VITAMIN D3 1,000 UNITS (CHOLECALCIFEROL) TABLET PO SCH (09:00)
[2019-02-09] MEDS ORDERED: FUROSEMIDE 20 MG (LASIX) TAB PO SCH (09:00)
[2019-02-09] MEDS ORDERED: LACTOBACILLUS ACIDOPHILUS (PROBIOTIC) CAPSULE PO SCH (09:00)
[2019-02-09] MEDS ORDERED: LORATADINE (CLARITIN) 10 MG TAB PO SCH (09:00)
[2019-02-09] MEDS ORDERED: PANTOPRAZOLE 40 MG (PROTONIX) VIAL IV SCH (09:00)
[2019-02-09] MEDS ORDERED: INULIN PO SCH (09:00)
[2019-02-09] MEDS ORDERED: RHAMNOSUS GG PO SCH (09:00)
[2019-02-09] MEDS ORDERED: NON-FORMULARY MEDICATION 1 EA EA (Cholecalciferol (Vitamin D3) (Vitamin D-3) 2,000 UNIT) PO SCH (09:00)
[2019-02-09] MEDS ORDERED: NON-FORMULARY MEDICATION 1 EA EA (Cetirizine HCl (Zyrtec) 10 MG) PO SCH (09:00)
[2019-02-09] MEDS ORDERED: DONE5TAB30 PO (09:40)
[2019-02-09] MEDS ORDERED: OMEP20CA12 PO (09:40)
[2019-02-09] MEDS ORDERED: LOPE1TAB13 PO (09:40)
[2019-02-09] MEDS ORDERED: ACET-2650 PO (09:40)
[2019-02-09] MEDS ORDERED: PSYL3.4P5 PO (09:40)
[2019-02-09] MEDS ORDERED: FURO20TA4 PO (09:40)
--- NOTE | 2019-02-09 09:50 | NUR ---
UPDATED MED REC WITH EDE FROM [facility]. I CALLED THEM TO VERIFY THE WARFARIN DOSE WELL THE AMLODIPINE. THE AMLODIPINE HAS BEEN ON HOLD AND SO I DID NOT INCLUDE IT ON THE MED REC AT THIS TIME.
[2019-02-09 11:58] VITALS: BP 158/70
--- NOTE | 2019-02-09 12:37 | Progress Note-Hospitalist ---
Progress Note Progress Notes/Assess & Plan Date Seen 02/09/19 Time Seen by Provider: 12:33 Assessment & Plan The patient is sitting up in a chair at bedside eating lunch. Her daughter is present and believes that she has returned to her baseline status. Dr. Gordon reported in his history and physical that he believed this may have been triggered by a run of atrial fibrillation with rapid ventricular response that had converted by the time she arrived here. Although she is quite hard of hearing she reports that the hamburger is quite dry and there were no condiments to grease the skids. Physical exam: She is alert and pleasant. Lungs are clear to auscultation. CV is regular. Ankles show no pedal edema. Impression: Paroxysmal atrial fibrillation with rapid ventricular response. 2.dyspnea secondary to number 1. 3.elevation of troponin secondary to number 1. 4.past history of diastolic dysfunction and pulmonary hypertension. Plan: Discharge. See discharge sequence for medications and routines. ANA CHAPPELL MD Feb 09, 2019 12:37
--- NOTE | 2019-02-09 12:46 | Discharge Inst-Simple/Standard ---
Discharge Inst-Standard Patient Instructions/Follow Up Plan of Care/Instructions/FU: Medications as listed on the discharge sequence Resume usual diet Pro time/INR on Saturday Activity as Tolerated: Yes Goal: Return to previous status Discharge Diet: Regular Diet ANA CHAPPELL MD Feb 09, 2019 12:46
[2019-02-09 13:45] VITALS: BP 158/70
--- NOTE | 2019-02-09 13:45 | NUR ---
CLEO COBURN demonstrates understanding of discharge instructions and accurately returns instructions upon questioning. Copy of Post-Discharge Instructions given to DAUGHTER. CLEO COBURN is able to manage continuing needs after discharge WITH ASSISTANCE OF TANI. Patients belongings returned to PT AND DAUGHTER. Patient discharged from 416-1 on 02/09/19 at 1345. CLEO COBURN left floor via W/C, accompanied by STAFF AND DAUGHTER TO TANI'Chana. Addendum: 02/09/19 at 1532 by PHILL SALAZAR RN DAUGHTER DEMONSTRATES UNDERSTANDING OF DISCHARGE
--- NOTE | 2019-02-09 17:54 | Progress Note-Cardiology ---
Cardiology SOAP Progress Note Subjective: Mild, intermittent malaise No cp or palp or syncope or shortness of breath Objective: I&O/Vital Signs 02/09/19 02/09/19 02/09/19 02/09/19 07:00 07:16 08:00 09:00 Temp 98.4 Pulse 79 66 Resp 18 B/P (MAP) 167/67 (100) Pulse Ox 96 98 94 O2 Delivery Nasal Cannula Nasal Cannula Room Air O2 Flow Rate 2.00 2.00 02/09/19 02/09/19 02/09/19 02/09/19 11:57 11:58 12:49 13:45 Temp 97.6 Pulse 59 70 70 Resp 18 18 B/P (MAP) 158/70 (99) 158/70 Pulse Ox 98 95 94 O2 Delivery Nasal Cannula Nasal Cannula Nasal Cannula O2 Flow Rate 2.00 2.00 FiO2 100 02/09/19 00:00 Intake Total 600 ml Output Total 275 ml Balance 325 ml Weight (Pounds): 110 Weight (Ounces): 12.8 Weight (Calculated Kilograms): 50.991622 Constitutional: AAO x 3, well-developed, other (frail appearing; hard of hearing) Respiratory: No accessory muscle use; other (good bilat air entry; some basal crackles) Cardiovascular: regular rate-rhythm, S1 and S2, systolic murmur (3/6 MSM) Gastrointestional: No tender; soft; No guarding, No rebound; audible bowel sounds Extremities: No clubbing, No cyanosis, No significant edema Neurologic/Psychiatric: oriented x 3, grossly intact Skin: No rash on exposed areas, No ulcerations on exposed areas Results/Procedures: Labs Laboratory Tests 02/08/19 03:35 02/08/19 12:22 A/P: Assessment: Ac SD: unclear if this is type 1 or type 2 Acute diastolic congestive heart failure Valvular heart disease and pulmonary hypertension (see below) Echo of 12/25/2018 shows normal LV function with likely diastolic heart failure. IVC is dilated. PA pressure is 5560 mmHg. Moderate to severe aortic stenosis with mean gradient of 20 mmHg, aortic valve area by VTI 0.9 cm. Moderate aortic regurgitation. Moderate to severe mitral regurgitation with peak velocity of 5.4 m/s. Paroxysmal atrial fibrillation, treated with sotalol and warfarin Hypertension Hypokalemia, likely due to diuretics, being replenished Plan: * Continue current regimen * Family desires conservative therapy only and pt concurs with family * Close outpt cardiac f/u is advised with her regional forester Clinical Quality Measures AMI/AHF: ASA po Prior to arrival: OREN Caal MD FACP FAC CCDS Feb 09, 2019 17:54
[2019-02-10] MEDS ORDERED: PANTOPRAZOLE 40 MG (PROTONIX) TAB PO SCH (09:00)
== END 2019-02-09 13:45 | DRG 308 ==
LOC: EDUNIT# 12:30 → ER 12:32 → ICU 14:00 → 4TH 02-08 12:16 → OBSVTOIN 02-08 15:51
PROVIDERS: ADMIT Internal Medicine; ATTEND Internal Medicine
DX: I48.0 Paroxysmal atrial fibrillation (principal); I11.0 Hypertensive heart disease with heart failure; I50.31 Acute diastolic (congestive) heart failure; R79.89 Other specified abnormal findings of blood chemistry; I08.0 Rheumatic disorders of both mitral and aortic valves; I27.20 Pulmonary hypertension, unspecified; E87.5 Hyperkalemia; E87.6 Hypokalemia; D64.9 Anemia, unspecified; J44.9 Chronic obstructive pulmonary disease, unspecified; R11.2 Nausea with vomiting, unspecified; K21.9 Gastro-esophageal reflux disease without esophagitis; H91.93 Unspecified hearing loss, bilateral; E78.00 Pure hypercholesterolemia, unspecified; K52.9 Noninfective gastroenteritis and colitis, unspecified; M19.91 Primary osteoarthritis, unspecified site; F41.9 Anxiety disorder, unspecified; Z99.81 Dependence on supplemental oxygen; Z79.01 Long term (current) use of anticoagulants; Z97.4 Presence of external hearing-aid; Z96.642 Presence of left artificial hip joint
CPT/HCPCS: 36415; 71045; 71046; 80048; 80053; 81000; 82274; 82550; 83735; 83874; 83880; 84443; 84484; 85025; 85610; 85730; 93005; 94640; 94760

== ENCOUNTER 2019-04-14 05:40 | Outpatient (CLI) | payer MEDICARE ==
[~2019-04-14] VITALS: Ht 149.9 cm; Wt 45.8 kg
[~2019-04-14 05:40] MED LIST changes: +ACET-2650 PO; +DONE5TAB30 PO; +FURO20TA4 PO; +LOPE1TAB13 PO; +OMEP20CA12 PO; +PSYL3.4P5 PO; -SOTA80TA PO; +STL80T PO
== END 2019-04-14 11:56 | disposition home or self-care (01) ==
LOC: PREOP 05:40
PROVIDERS: ATTEND Surgery
DX: Z01.818 Encounter for other preprocedural examination (principal)

== ENCOUNTER 2019-04-15 12:26 | Day surgery (SDC) | payer MEDICARE ==
[~2019-04-15] VITALS: Ht 149.9 cm; Wt 45.8 kg
[2019-04-15] MEDS ORDERED: LACTATED RINGERS 1,000 ML IV ONE (12:32)
--- NOTE | 2019-04-15 12:42 | Progress Note-Pre Operative ---
Pre-Operative Progress Note H&P Reviewed The H&P was reviewed, patient examined and no changes noted. Date Seen by Provider: Apr 15, 2019 Time Seen by Provider: 12:30 Date H&P Reviewed: Apr 15, 2019 Time H&P Reviewed: 12:30 Pre-Operative Diagnosis: anemia, GERD ANDREW IRVIN MD Apr 15, 2019 12:42
--- NOTE | 2019-04-15 12:44 | Discharge Inst-Surgical ---
D/C Lap Instructions-ALBARO Follow Up Activity as tolerated High Fiber Diet 25g or more per day Avoid Alcohol, Caffeine, Spicy [place] and Acid foods. Drink 64 fluid oz or more of fluids per day. Symptoms to Report: Fever over 101 degree F, Nausea/Vomiting If any problems/questions: Contact your physician or go to Emergency Room ANDREW IRVIN MD Apr 15, 2019 12:44
[2019-04-15] MEDS ORDERED: ACETAMINOPHEN 325 MG TABLET PO PRN (12:45)
[2019-04-15] MEDS ORDERED: ONDANSETRON 4 MG/2 ML (SDV) Z0FRAN IVP PRN (12:45)
[2019-04-15] MEDS ORDERED: morphine INJ 10 MG/ML 1ML (SYR OR VIAL) IVP PRN ×2 (12:45)
[2019-04-15] MEDS ORDERED: HYDROcodone/APAP 5 MG/325 MG (LORTAB) TAB PO PRN (12:45)
[2019-04-15 12:50] VITALS: BP 151/56
[2019-04-15] MEDS ORDERED: proPOfol 200 MG/20 ML (DIPRIVAN) VIAL IV ONE (13:06)
[2019-04-15] MEDS ORDERED: HURRICAINE EXT TUBE (BENZOCAINE) ONE (13:09)
[2019-04-15] MEDS ORDERED: LACTATED RINGERS 1,000 ML IV STA (13:15)
[2019-04-15] MEDS ORDERED: LIDOCAINE JELLY 2% 6 ML SYRINGE MM PRN (13:15)
[2019-04-15] MEDS ORDERED: HURRICAINE EXT TUBE (BENZOCAINE) XX PRN (13:15)
--- NOTE | 2019-04-15 14:39 | Progress Note-Post Operative ---
Post-Operative Progess Note Surgeon (s)/Bi Tester (s) Surgeon ANDREW IRVIN MD Bi Tester: none Pre-Operative Diagnosis anemia, GERD Post-Operative Diagnosis reflux esophagitis(stage 2), small-mod HH(2cm), mild gastritis. anal stenosis, mild sig diverticulosis. Procedure & Operative Findings Date of Procedure 04/15/19 Procedure Performed/Findings EGD with bx. Colonoscopy with anal dilatation Anesthesia Type mac Estimated Blood Loss Estimated blood loss (mL): none Specimens/Packing Specimens Removed ge jxn, antrum ANDREW IRVIN MD Apr 15, 2019 14:39
[2019-04-15 14:40] VITALS: BP 149/63
[2019-04-15 15:10] VITALS: BP 146/100
[2019-04-15 15:20] VITALS: BP 146/100
--- NOTE | 2019-04-15 22:09 | OPERATIVE REPORT ---
DATE OF SERVICE: 04/15/2019 ATTENDING PHYSICIAN: Haroldo Benton DO PREOPERATIVE DIAGNOSIS: Anemia with history of gastroesophageal reflux disease as well as history of hemorrhoids. POSTOPERATIVE DIAGNOSES: Reflux esophagitis, stage II small to moderate size hiatal hernia approximately 2 cm, mild gastritis. Anal stenosis, possibly secondary to chronic hemorrhoids. The remainder of the rectum and colon were normal. There were no polyps or any neoplasms identified as well as no active bleeding sources. PROCEDURE: EGD with biopsy, colonoscopy with dilatation of the anus. SURGEON: Andrew Billy MD ANESTHESIA: Monitored anesthesia care. ESTIMATED BLOOD LOSS: Minimal. FINDINGS: Same as postop. DISPOSITION: The patient tolerated the procedure well. INDICATIONS: The patient is an 88-year-old female referred over to us for Hemoccult positive stools. She was hospitalized approximately two months ago for an episode of atrial fibrillation and she has been on Coumadin. She was found to be anemic with a hemoglobin of 8 and a Hemoccult test was performed on the stool, which was positive. She does not report any family history of colon cancer as well as no colleen episodes of red blood per rectum nor any dark tarry stools. She does have a history of hemorrhoids. She also has had an EGD in the past and does have a history of a hiatal hernia as well as gastroesophageal reflux disease and does take omeprazole daily. She does have occasional episodes of nausea and vomiting; however, no hematemesis, no coffee-ground emesis. She is a resident of an extended care facility. Does have a history of dementia as well as Alzheimer disease. DESCRIPTION OF PROCEDURE: The patient was brought to the endoscopy suite, laid in the left lateral decubitus position. After adequate IV pain and sedative medications and conscious sedation anesthesia, the mouthpiece was applied. The endoscope was then placed in the mouth, visualizing the pharynx and hypopharyngeal region. Vocal cords, epiglottis and vallecula identified and appeared to be normal. The endoscope was gently intubated in the esophageal opening and esophagus insufflated. Endoscope was then gently advanced in the esophageal opening and the endoscope advanced to the first, second and third portion of esophagus to the level of the GE junction, reflux esophagitis, stage II identified. There were no ulcers or strictures identified in this region. A biopsy was taken of the GE junction with forceps with visualization of good hemostasis. The endoscope was then advanced in the stomach and then endoscope retroflexed, visualizing a small to moderate size hiatal hernia approximately 2 cm in size. There was a mild gastritis. No formal ulcerations, polyps, or any neoplasms. A biopsy was taken of the antrum to rule out H. pylori with visualization of good hemostasis. The endoscope was then advanced to the remainder of the pylorus and the first and second portion of the duodenum, which appeared normal with no distal obstructions. The endoscope was then slowly withdrawn while taking second look and suctioning of residual air with no additional findings. The patient tolerated this portion of procedure well. We will recommend continued conservative therapy with the necessary lifestyle and diet accommodation including small and more frequent meals, avoidance of eating at night as well as head elevation while lying supine. She also needs to avoid caffeinated beverages, spicy, greasy and acidic foods and continue with her omeprazole daily. Under the same anesthesia, we then proceeded with the colonoscopy portion of the procedure. A digital rectal examination was performed, which revealed chronic stage II external and internal hemorrhoids; however, there was an anal stenosis identified upon digital rectal examination. There was a resistance with one fingerbreadth; however, after some time this did relax some. We then proceeded with continued dilatation with an approximately 2 fingerbreadths. There was a small anoderm tear identified; however, no active bleeding. The endoscope was then intubated to the anus, rectum and gently insufflated. The endoscope was then advanced to the valves of [place] rectum with no polyps or neoplasms identified. Through the sigmoid colon, mild sigmoid diverticulosis identified. There were no active bleeding sources identified. The endoscope was then advanced into the remaining of the descending, transverse and ascending colon to the cecum. These segments were normal. There were no polyps or any neoplasms identified throughout the colon or rectum. There are also no bleeding sources. The endoscope was then slowly withdrawn while taking a second look and suctioning of residual air with no additional findings. The patient tolerated the procedure well. We will recommend continued conservative management with a high fiber diet with at least 25 grams of fiber per day as well as significant amounts of water to promote soft stools on a daily basis. There are no active bleeding source identified and we will recommend continued monitoring of her hemoglobin; however, if she does have persistent anemia, she may need further evaluation. Job ID: [id number] DocumentID: [id number] Dictated Date: 04/15/2019 14:40:23 [employer] Date: 04/15/2019 22:08:15 Dictated By: ANDREW BILLY MD
[2019-04-20] MEDS ORDERED: WARF3TAB56 PO (16:42)
[2019-04-20] MEDS ORDERED: SIME125C78 PO (16:42)
[2019-04-20] MEDS ORDERED: LORA0.5T PO (16:42)
[2019-04-20] MEDS ORDERED: MAGN400T39 PO (16:42)
[2019-04-20] MEDS ORDERED: AMLO10TA7 PO (16:42)
== END 2019-04-15 15:20 | disposition home or self-care (01) ==
LOC: ENDO 12:26
PROVIDERS: ATTEND Surgery
DX: K21.0 Gastro-esophageal reflux disease with esophagitis (principal); K44.9 Diaphragmatic hernia without obstruction or gangrene; K29.70 Gastritis, unspecified, without bleeding; K62.4 Stenosis of anus and rectum; I48.91 Unspecified atrial fibrillation; G30.9 Alzheimer's disease, unspecified; F02.80 Dementia in other diseases classified elsewhere, unspecified severity, without behavioral disturbance, psychotic disturbance, mood disturbance, and anxiety; K64.1 Second degree hemorrhoids; K57.30 Diverticulosis of large intestine without perforation or abscess without bleeding; K62.81 Anal sphincter tear (healed) (nontraumatic) (old); E78.00 Pure hypercholesterolemia, unspecified; K52.9 Noninfective gastroenteritis and colitis, unspecified; I11.0 Hypertensive heart disease with heart failure; I20.9 Angina pectoris, unspecified; I50.9 Heart failure, unspecified; E78.5 Hyperlipidemia, unspecified; I35.0 Nonrheumatic aortic (valve) stenosis; Z80.3 Family history of malignant neoplasm of breast; Z99.81 Dependence on supplemental oxygen; Z79.01 Long term (current) use of anticoagulants; Z79.899 Other long term (current) drug therapy
CPT/HCPCS: 88305

== ENCOUNTER 2019-04-18 13:43 | Emergency (ER) | payer MEDICARE ==
[~2019-04-18] VITALS: Ht 149.9 cm; Wt 46.1 kg
[2019-04-18 14:26] LABS: BASOPHILS % (AUTO) 0 % (0-10); EOSINOPHILS # (AUTO) 0.2 10^3/uL (0.0-0.3); EOSINOPHILS % (AUTO) 3 % (0-10); HEMATOCRIT 35 % (35-52); LYMPHOCYTES # (AUTO) 3.2 X 10^3 (1.0-4.0); LYMPHOCYTES % (AUTO) 37 % (12-44); MEAN CORPUSCULAR HEMOGLOBIN 30 PG (25-34); MEAN CORPUSCULAR HGB CONC 32 G/DL (32-36); MEAN CORPUSCULAR VOLUME 95 FL (80-99); MONOCYTES # (AUTO) 1.1 X 10^3 (0.0-1.0); MONOCYTES % (AUTO) 13 % (0-12); NEUTROPHILS % (AUTO) 47 % (42-75); PLATELET COUNT 406 10^3/uL (130-400); RED CELL DISTRIBUTION WIDTH 17.5 % (10.0-14.5); WHITE BLOOD COUNT 8.5 10^3/uL (4.3-11.0)
[2019-04-18 14:31] LABS: INR 1.1 (0.8-1.4); PROTHROMBIN TIME PATIENT 15.1 SEC (12.2-14.7)
[2019-04-18 14:39] LABS: ALANINE AMINOTRANSFERASE 12 U/L (0-55); ALBUMIN 3.7 GM/DL (3.2-4.5); ALKALINE PHOSPHATASE 50 U/L (40-136); BILIRUBIN,TOTAL 0.2 MG/DL (0.1-1.0); BUN/CREATININE RATIO 27; CALCIUM 10.3 MG/DL (8.5-10.1); CARBON DIOXIDE 17 MMOL/L (21-32); CHLORIDE 109 MMOL/L (98-107); CREATININE SERUM 0.86 MG/DL (0.60-1.30); GFR ESTIMATED > 60; GLUCOSE 100 MG/DL (70-105); MAGNESIUM 2.2 MG/DL (1.8-2.4); SODIUM 138 MMOL/L (135-145); TOTAL PROTEIN 9.1 GM/DL (6.4-8.2)
[2019-04-18 14:40] LABS: POTASSIUM 5.7 MMOL/L (3.6-5.0)
--- NOTE | 2019-04-18 15:00 | Diagnostic Imaging Report ---
PROCEDURE: CT head wo r/o stroke. TECHNIQUE: Multiple contiguous axial images were obtained through the brain without the use of intravenous contrast. Auto Exposure Controls were utilized during the CT exam to meet ALARA standards for radiation dose reduction. INDICATION: Dementia. Comparison made with prior examination from 06/09/2016. FINDINGS: There is prominence of the ventricles and sulci. There is no hydrocephalus or cerebral edema. There is no midline shift or mass-effect. There is no intracranial mass, hemorrhage, or extra-axial fluid collection. There is some diffuse decreased attenuation of the periventricular white matter which is nonspecific. The visualized paranasal sinuses and mastoid air cells are clear. There are no regional areas of decreased attenuation appreciated to suggest an acute CVA. IMPRESSION: 1. No acute intracranial process. 2. Age-appropriate atrophy. 3. Decreased attenuation of the periventricular white matter which is nonspecific, however, likely reflects senescent change and/or chronic small vessel ischemic disease. Dictated by: Dictated on workstation # [id number]
--- NOTE | 2019-04-18 15:08 | ED General ---
General Chief Complaint: Altered Mental Status Stated Complaint: AMS Nursing Triage Note: PT TO TRIAGE WITH COMPLAINT OF AMS, CONFUSION, INCREASED AGITATION, AND HALLUCINATING. DAUGHTER STATES SHE WAS CALLED BY LEONARD DUE TO MOM BEING UPSET AND YELLING AT . STATES PT HAD COLONSCOPY ON SATURDAY. STATES PT IS OFF BALANCE. Nursing Sepsis Screen: No Definite Risk Source of Information: Family (DAUGHTER) Exam Limitations: Other (PT WITH DEMENTIA, NOT A RELLIABLE HISTORIAN) History of Present Illness Date Seen by Provider: Apr 18, 2019 Time Seen by Provider: 14:18 Initial Comments PT ARRIVES VIA POV FROM [facility], WHERE SHE RESIDES WITH HER PT HAS HISTORY OF DEMENTIA, AND HAS BEEN WORSE FOR THE LAST MONTH, AND ESPECIALLY BAD THE LAST 2 WEEKS TODAY SHE SEEMED EVEN MORE CONFUSED, AND WAS VERY UPSET TODAY PT WAS YELLING AND TRYING TO HIT HER , AND STAFF COULD NOT GET HER CALMED DOWN IN REGARDS TO HER DAUGHTER REPORTS THAT PT HAS ONGOING ANXIETY AND ANGER WITH HER , WAS WORSE TODAY THAN NORMAL PT WAS ALSO REPORTEDLY "LEANING MORE TO THE LEFT" WHILE AMBULATING WITH HER WALKER TODAY DAUGHTER ALSO REPORTS THAT PT APPEARED TO BE HALLUCINATING TODAY--WAS SEEING CHILDREN THAT WEREN'T THERE. STAFF TOLD DAUGHTER THAT PT HAD NOT HAD ANYTHING TO EAT OR DRINK TODAY, BUT PT THINKS SHE HAD LUNCH BUT NOT BREAKFAST. PT DID HAVE AN EGD AND COLONOSCOPY ON SATURDAY--WAS DONE FOR ANEMIA AND BLOOD IN STOOL. WAS FOUND TO HAVE HEMORRHOIDS, GERD AND HIATAL HERNIA--NO SIGNIFICANT FINDINGS. PT HAD BEEN ON COUMADIN AND IT WAS TEMPORARILY HELD DUE TO BLEEDING--WAS RESTARTED LAST PM AFTER RESULTS OF COLONOSCOPY WERE OBTAINED. PT WAS DX WITH ATRIAL FIBRILLATION IN JANUARY. ALSO HAS HISTORY OF AORTIC STENOSIS. Allergies and Home Medications Allergies Coded Allergies: No Known Drug Allergies (Unverified , 02/07/19) Home Medications Acetaminophen 650 Mg Tablet.er, 1,300 MG PO BID, (Reported) Cetirizine HCl 10 Mg Tablet, 10 MG PO DAILY, (Reported) Cholecalciferol (Vitamin D3) 2,000 Unit Tablet, 2,000 UNIT PO DAILY, (Reported) Donepezil HCl 5 Mg Tablet, 5 MG PO HS, (Reported) Furosemide 20 Mg Tablet, 20 MG PO DAILY, (Reported) L. Rhamnosus GG/Inulin 1 Each Cap.sprink, 1 CAP PO DAILY, (Reported) Loperamide HCl/Simethicone 1 Each Tablet, 1 TAB PO BID, (Reported) Multivitamin 1 Each Tablet, 1 TAB PO DAILY, (Reported) Omeprazole 20 Mg Capsule.dr, 20 MG PO DAILY, (Reported) Potassium Chloride 20 Meq Tab.er.prt, 40 MEQ PO DAILY, (Reported) TAKES 2 (20MEQ) TABLETS Potassium Chloride 20 Meq Tablet.er, 20 MEQ PO HS, (Reported) Psyllium Husk/Aspartame 3.4 Gm Powd.pack, 3.4 GM PO HS, (Reported) Simvastatin 20 Mg Tablet, 20 MG PO HS, (Reported) Sotalol HCl 80 Mg Tablet, 80 MG PO BID, (Reported) Warfarin Sodium 3 Mg Tablet, 3 MG PO SuTuWeThSa, (Reported) Patient Home Medication List Home Medication List Reviewed: Yes Review of Systems Review of Systems Constitutional: other (UNABLE TO OBTAIN RELIABLE INFORMATION FROM PT) Psychiatric/Neurological: See HPI Past Ibabwgf-Azmrnv-Atqmlw Hx Patient Social History Alcohol Use: Denies Use Recreational Drug Use: No Smoking Status: Never a Smoker 2nd Hand Smoke Exposure: No Recent Foreign Travel: No Contact w/Someone Who Travel: No Recent Infectious Disease Expo: No Recent Hopitalizations: No Immunizations Up To Date Tetanus Booster (TDap): Unknown PED Vaccines UTD: Yes Date of Pneumonia Vaccine: Feb 07, 2019 Date of Influenza Vaccine: Jul 14, 2018 Seasonal Allergies Seasonal Allergies: No Past Medical History Surgeries: Yes (CATARACTS; LEFT HIP REPLACEMENT) Eye Surgery, Joint Replacement, Orthopedic Respiratory: No Currently Using CPAP: No Currently Using BIPAP: No Cardiac: Yes (AORTIC STENOSIS) Atrial Fibrillation, High Cholesterol, Hypertension, Valvular Heart Disease Neurological: Yes (Alzheimer's disease) Dementia Reproductive Disorders: No Female Reproductive Disorders: Denies ASSOCIATE MEDIA PLANNER History: Menopausal Sexually Transmitted Disease: No HIV/AIDS: No Genitourinary: No Gastrointestinal: Yes Gastroesophageal Reflux, Hemorrhoids, Chronic Diarrhea, Hiatal Hernia Musculoskeletal: Yes (LEFT HIP REPLACEMENT ) Arthritis Endocrine: No HEENT: Yes Cataract Loss of Vision: Denies Hearing Impairment: Hard of Hearing, Bilateral Hearing Aide Cancer: No Psychosocial: No Anxiety Integumentary: No Blood Disorders: Yes (anemia) Adverse Reaction/Blood Tranf: No Family Medical History Alcoholism 19 FATHER Arthritis 19 MOTHER FH: breast cancer in first degree relative G8 SISTER FH: cirrhosis G8 BROTHER Physical Exam Vital Signs Vital Signs - First Documented 04/18/19 13:50 Temp 97.7 Pulse 66 Resp 17 B/P (MAP) 143/63 (89) Pulse Ox 94 O2 Delivery Room Air Capillary Refill : Less Than 3 Seconds Height, Weight, BMI Height: 4'11.00" Weight: 101lbs. 9.0oz. 46.619159cw; 20.4 BMI Method:Stated General Appearance: No Apparent Distress, WD/WN, Thin, Other (PT TALKING SOMEWHAT NON-SENSICAL ON ARRIVAL, THEN LATER, PT IS ABLE TO ANSWER A FEW QUESTIONS, SEEMINGLY APPROPRIATE AND APPEARS TO BE LESS CONFUSED--PT PLEASANT A ND COOPERATIVE. NO AGITATION OR ACTING OUT. ) HEENT: PERRL/EOMI Neck: Normal Inspection Respiratory: Normal Breath Sounds, No Accessory Muscle Use, No Respiratory Distress Cardiovascular: Regular Rate, Rhythm, No JVD, Systolic Murmur (/) Gastrointestinal: Non Tender, Soft Back: No CVA Tenderness Extremity: Normal Inspection Neurologic/Psychiatric: Alert, No Motor/Sensory Deficits, Normal Mood/Affect, Other (ORIENTED TO PERSON ONLY. ) Skin: Normal Color Progress/Results/Core Measures Suspected Sepsis Recent Fever Within 48 Hours: No Infection Criteria Present: None New/Unexplained Altered Menta: No Sepsis Screen: No Definite Risk SIRS Temperature:97.7 Pulse: 66 Respiratory Rate: 17 Laboratory Tests 04/18/19 14:15: White Blood Count 8.5 Blood Pressure 143 /63 Mean: 89 Laboratory Tests 04/18/19 14:15: Creatinine 0.86, INR Comment 1.1, Platelet Count 406H, Total Bilirubin 0.2 Results/Orders Lab Results Laboratory Tests Test 04/18/19 14:15 04/18/19 14:54 04/18/19 15:48 Range/Units White Blood Count 8.5 4.3-11.0 10^3/uL Red Blood Count 3.68 L 4.35-5.85 10^6/uL Hemoglobin 11.0 L 11.5-16.0 G/DL Hematocrit 35 35-52 % Mean Corpuscular Volume 95 80-99 FL Mean Corpuscular Hemoglobin 30 25-34 PG Mean Corpuscular Hemoglobin Concent 32 32-36 G/DL Red Cell Distribution Width 17.5 H 10.0-14.5 % Platelet Count 406 H 130-400 10^3/uL Mean Platelet Volume 11.0 H 7.4-10.4 FL Neutrophils (%) (Auto) 47 42-75 % Lymphocytes (%) (Auto) 37 12-44 % Monocytes (%) (Auto) 13 H 0-12 % Eosinophils (%) (Auto) 3 0-10 % Basophils (%) (Auto) 0 0-10 % Neutrophils # (Auto) 4.0 1.8-7.8 X 10^3 Lymphocytes # (Auto) 3.2 1.0-4.0 X 10^3 Monocytes # (Auto) 1.1 H 0.0-1.0 X 10^3 Eosinophils # (Auto) 0.2 0.0-0.3 10^3/uL Basophils # (Auto) 0.0 0.0-0.1 10^3/uL Prothrombin Time 15.1 H 12.2-14.7 SEC INR Comment 1.1 0.8-1.4 Activated Partial Thromboplast Time 30 24-35 SEC Sodium Level 138 135-145 MMOL/L Potassium Level 5.7 H 3.6-5.0 MMOL/L Chloride Level 109 H 98-107 MMOL/L Carbon Dioxide Level 17 L 21-32 MMOL/L Anion Gap 12 5-14 MMOL/L Blood Urea Nitrogen 23 H 7-18 MG/DL Creatinine 0.86 0.60-1.30 MG/DL Estimat Glomerular Filtration Rate > 60 BUN/Creatinine Ratio 27 Glucose Level 100 70-105 MG/DL Calcium Level 10.3 H 8.5-10.1 MG/DL Corrected Calcium 10.5 H 8.5-10.1 MG/DL Magnesium Level 2.2 1.8-2.4 MG/DL Total Bilirubin 0.2 0.1-1.0 MG/DL Aspartate Amino Transf (AST/SGOT) 34 5-34 U/L Alanine Aminotransferase (ALT/SGPT) 12 0-55 U/L Alkaline Phosphatase 50 40-136 U/L Total Protein 9.1 H 6.4-8.2 GM/DL Albumin 3.7 3.2-4.5 GM/DL Glucometer 92 70-110 MG/DL Urine Color YELLOW Urine Clarity CLEAR Urine pH 5 5-9 Urine Specific [place] 1.020 1.016-1.022 Urine Protein 2+ H NEGATIVE Urine Glucose (UA) NEGATIVE NEGATIVE Urine Ketones NEGATIVE NEGATIVE Urine Nitrite NEGATIVE NEGATIVE Urine Bilirubin NEGATIVE NEGATIVE Urine Urobilinogen NORMAL NORMAL MG/DL Urine Leukocyte Esterase 1+ H NEGATIVE Urine RBC (Auto) 1+ H NEGATIVE Urine RBC 0-2 /HPF Urine WBC 0-2 /HPF Urine Squamous Epithelial Cells 0-2 /HPF Urine Crystals NONE /LPF Urine Bacteria NEGATIVE /HPF Urine Casts NONE /LPF Urine Mucus NEGATIVE /LPF Urine Culture Indicated NO My Orders Orders - FRANCK HOOPER DO Accucheck Stat ONCE (04/18/19 14:18) Ed Iv/Invasive Line Start (04/18/19 14:18) Ekg Tracing (04/18/19 14:18) Monitor-Rhythm Ecg Trace Only (04/18/19 14:18) Cbc With Automated Diff (04/18/19 14:18) Comprehensive Metabolic Panel (04/18/19 14:18) Magnesium (04/18/19 14:18) Protime With Inr (04/18/19 14:18) Partial Thromboplastin Time (04/18/19 14:18) Ua Culture If Indicated (04/18/19 14:18) Chest 1 View, Ap/Pa Only (04/18/19 14:18) Straight Cath For Spec.-Adult (04/18/19 14:27) Ct Head Wo-R/O Stroke (04/18/19 14:27) Ed Iv/Invasive Line Start (04/18/19 16:16) Ns Iv 1000 Ml (Sodium Chloride 0.9%) (04/18/19 16:16) Vital Signs/I&O 04/18/19 04/18/19 13:50 17:29 Temp 97.7 Pulse 66 68 Resp 17 17 B/P (MAP) 143/63 (89) 148/63 (91) Pulse Ox 94 95 O2 Delivery Room Air Room Air Capillary Refill : Less Than 3 Seconds Blood Pressure Mean: 89 Progress Note : Progress Note PT REMAINED VERY PLEASANT, COOPERATIVE THROUGHOUT ER STAY PT IS AT HER NORMAL BASELINE PER DAUGHTER. DAUGHTER FEELS COMFORTABLE TAKING HER HOME. ECG Initial ECG Impression Date: Apr 18, 2019 Initial ECG Impression Time: 14:45 Initial ECG Rate: 69 Initial ECG Rhythm: Normal Sinus (LBBB) Diagnostic Imaging Comments CT HEAD--NO ACUTE PROCESS, CHRONIC SENESCENT CHANGES, PER RADIOLOGIST REPORT AT 1503 CXR--BIBASILAR ATELECTASIS/INFILTRATES-PER RADIOLOGIST REPORT Reviewed: Reviewed by Me Departure Impression Primary Impression: INCREASED CONFUSION IN PT WITH DEMENTIA Additional Impression: Mild dehydration Disposition: 03 XFER SNF Condition: Stable Departure-Patient Inst. Referrals: ANDREW MAYES DO (PCP/Family) Primary Care Physician Patient Instructions: Dehydration, Adult (DC), Dementia (DC) Add. Discharge Instructions: TAKE YOUR MEDICATIONS PRESCRIBED INCREASED YOUR FLUID INTAKE FOLLOW UP WITH DR. MAYES IN 2--3 DAYS IF NO BETTER, RETURN TO ER IF WORSE All discharge instructions reviewed with patient and/or family. Voiced understanding. FRANCK HOOPER DO Apr 18, 2019 15:07
--- NOTE | 2019-04-18 15:14 | Diagnostic Imaging Report ---
Indication: Altered mental status, dyspnea. Comparison: 02/08/2019. Discussion: Single portable upright view of the chest was obtained. Cardiomegaly is stable. No pleural fluid or pneumothorax. Infiltrates within the lung bases could be seen with atelectasis or pneumonia. No osseous abnormality. Impression: 1. Bibasilar infiltrates, possible atelectasis or pneumonia. 2. Cardiomegaly without failure. Dictated by: Dictated on workstation # [id number]
[2019-04-18 15:52] LABS: BILIRUBIN,URINE NEGATIVE (NEGATIVE); CLARITY,URINE CLEAR; COLOR,URINE YELLOW; GLUCOSE, URINE (UA) NEGATIVE (NEGATIVE); KETONES,URINE NEGATIVE (NEGATIVE); LEUKOCYTE ESTERASE ,URINE 1+ (NEGATIVE); NITRITE,URINE NEGATIVE (NEGATIVE); PH,URINE 5 (5-9); PROTEIN,URINE 2+ (NEGATIVE); UROBILINOGEN,URINE NORMAL (NORMAL)
[2019-04-18 15:59] LABS: BACTERIA,URINE NEGATIVE /HPF; RBC,URINE 0-2 /HPF; SQUAMOUS EPITHELIAL CELL,UR 0-2 /HPF; WBC,URINE 0-2 /HPF
[2019-04-18] MEDS: NS IV 1000 ML 1,000 ML IV SCH ×2 (16:31→16:32)
[2019-04-18 17:29] VITALS: BP 148/63
[2019-04-20] MEDS ORDERED: WARF3TAB56 PO (16:42)
[2019-04-20] MEDS ORDERED: LORA0.5T PO (16:42)
[2019-04-20] MEDS ORDERED: SIME125C78 PO (16:42)
[2019-04-20] MEDS ORDERED: MAGN400T39 PO (16:42)
[2019-04-20] MEDS ORDERED: AMLO10TA7 PO (16:42)
== END 2019-04-18 17:29 ==
LOC: EDUNIT# 13:43 → ER 13:45
DX: G30.9 Alzheimer's disease, unspecified (principal); F02.80 Dementia in other diseases classified elsewhere, unspecified severity, without behavioral disturbance, psychotic disturbance, mood disturbance, and anxiety; E86.0 Dehydration; K21.9 Gastro-esophageal reflux disease without esophagitis; I48.91 Unspecified atrial fibrillation; I10 Essential (primary) hypertension; E78.00 Pure hypercholesterolemia, unspecified; F41.9 Anxiety disorder, unspecified; Z87.19 Personal history of other diseases of the digestive system; Z79.01 Long term (current) use of anticoagulants; Z96.642 Presence of left artificial hip joint; Z80.3 Family history of malignant neoplasm of breast
CPT/HCPCS: 36415; 70450; 71045; 80053; 81000; 82962; 83735; 85025; 85610; 85730; 93005; 96360

== ENCOUNTER 2019-04-20 07:27 | Observation (INO) | payer MEDICARE | END 2019-04-21 17:08 | disposition designated cancer center or children's hospital (05) | LOC: ER 07:27 → 4TH 13:10 ==

== ENCOUNTER 2019-06-06 10:38 | Inpatient (IN) | payer MEDICARE | END 2019-06-06 17:40 | disposition EMF | LOC: ER 10:38 → 4TH 10:57 ==